=== PATIENT | female | born 1950 | race Caucasian/White ===

== ENCOUNTER → 2018-04-02 11:03 | Outpatient (CLI) | payer MEDICARE, MEDICAID, SELFPAY ==
--- NOTE | 2018-04-02 | NVE_ITS ---
Venous Exam Indications: 729.81 Swelling of limb. 782.3 Edema. IMPRESSIONS 1. There is no evidence of significant Reflux. Difficult to image peroneal veins 2. No evidence of deep or superficial vein thrombosis involving the left lower extremity Left lower extremity venous duplex evaluation. Doppler flow study including spectral analysis, color and pleitez scale imaging. Location: Vascular laboratory. Patient status: Outpatient. CRITICAL FINDINGS - Reported to: Charisma - Ryan back and verified. - 04/02/18 - 1130 - None. Tables: Venous flow and imaging: + + + + Location Overall Flow properties + + + + Left common femoral Patent Normal phasicity; spontaneous; normal augmentation; compressible + + + + Left saphenofemoral junction Patent Compressible + + + + Left profunda femoral Patent Compressible + + + + Left femoral Patent Normal phasicity; spontaneous; normal augmentation; compressible + + + + Left greater saphenous Patent Normal phasicity; spontaneous; normal augmentation; compressible + + + + Left popliteal Patent Normal phasicity; spontaneous; normal augmentation; compressible + + + + Left posterior tibial Patent Compressible + + + + Left peroneal Difficult study Compressible + + + + Left gastrocnemius Patent Compressible + + + + Left soleal Patent Compressible + + + + (Report amended ) Electronically signed by: Anastacia Desouza [id number]
== END ==
PROVIDERS: PCP Internal Medicine Adolescent Medicine; Visit Provider Internal Medicine Adolescent Medicine
DX: M79.604 Pain in right leg (principal); M79.89 Other specified soft tissue disorders
CPT/HCPCS: 93970; 93971

== ENCOUNTER → 2018-07-02 08:19 | Outpatient (CLI) | payer MEDICARE, MEDICAID, SELFPAY ==
--- NOTE | 2018-07-02 08:30 | MM_ITS ---
MM Dig screening mamm BI w/CAD CAD Screening INDICATION: Screening for breast cancer ORDERING PHYSICIAN: Larissa Grier PATIENT AGE: 67 years COMPARISON: None TECHNIQUE: Standard CC and MLO images were obtained. R2 CAD reviewed. FINDINGS: There are multiple bilateral nodular densities once again noted. Study was performed as a screening mammogram and not a diagnostic exam. There is a 10 mm nodule in the outer aspect of the right breast. The right MLO is limited due to patient's immobility. 10 mm nodule outer aspect of the right breast at the 8:00 region appear slightly larger. 12 mm nodular density slightly lateral similar to 12/06/2015. 5 mm nodular density lateral to the nipple Multiple nodules of the left breast benign-appearing calcifications. Not significant change. IMPRESSION: Incomplete evaluation of the right breast. Just by compression views of the multiple breast nodules as marked on the exam. Ultrasound right breast didn't demonstrate a suspicious nodule at 8:00 for which biopsy is suggested. Spot views of the right breast could be performed before the biopsy. BI-RADS Category: 0 Need Additional Imaging Evaluation RECOMMENDED FOLLOW-UP: IMM - IMMEDIATE FOLLOW-UP RECOMMENDED Please see ultrasound report of same day. (A letter has been sent to the patient regarding results of the study.)
--- NOTE | 2018-07-02 08:30 | XR_ITS ---
XR DEXA axial skeleton HISTORY: ITS.REASON: OSTEOPAROSIS ORDERING PHYSICIAN: Larissa Grier PATIENT AGE: 67 years COMPARISON: 12/06/2015 FINDINGS: The BMD measured at the Right femoral neck is 0.718 g/cm squared with a T score of -2.3. This is considered Osteopenic according to the World Health Organization criteria. Fracture risk is Moderate. Treatment is advised. The L1 L4 density of the kidneys were -0.7. The lumbar density has increased by 13%. The hip density has increased by 6%. IMPRESSION: Osteopenia with moderate fracture risk. Treatment is advised Recommend follow-up exam June 2020.
--- NOTE | 2018-07-02 08:32 | US_ITS ---
US breast LT complete INDICATION: Follow-up nodules ORDERING PHYSICIAN: Larissa Grier PATIENT AGE: 67 years COMPARISON: 04/10/2017 TECHNIQUE: Ultrasound with left axilla FINDINGS: 4 mm hypoechoic nodule at 12:00 unchanged 4 mm hypoechoic nodule at 2:00 unchanged 2 mm hypoechoic nodule at 3:00 unchanged Oval 8 x 2 mm hypoechoic nodule at 8:00 appears to represent a cyst previously having a more round appearance 4 mm hypoechoic nodule at 10:00 No suspicious nodules evident IMPRESSION: Multiple hypoechoic nodules consistent with breast cysts BI-RADS Category: 2 Benign Finding(s) RECOMMENDED FOLLOW-UP: 1YR - 1 YEAR FOLLOW-UP (A letter has been sent to the patient regarding results of the study.)
--- NOTE | 2018-07-02 08:32 | US_ITS ---
US breast RT complete INDICATION: Follow-up right breast ORDERING PHYSICIAN: Larissa Grier PATIENT AGE: 67 years COMPARISON: 04/10/2017 TECHNIQUE: Ultrasound right breast with axillae FINDINGS: 2 mm hypoechoic nodule 12:00 unchanged 2 mm hypoechoic nodule 1:00 unchanged 6 mm hypoechoic nodule 3:00, 7 mm macrolobulated hypoechoic nodule at 3:00 unchanged 10 x 7 mm hypoechoic nodule at 8:00 near the nipple. This does appear to contain some internal echoes have a lobular contour. Not related to previously. Ultrasound-guided biopsy suggested. 3 and 4 mm cyst at 9:00 7 mm cyst behind the nipple IMPRESSION: Multiple cysts with a suspicious 10 x 7 mm nodule at o'clock. Biopsy suggested BI-RADS Category: 4 Suspicious Abnormality-Biopsy Considered RECOMMENDED FOLLOW-UP: BIO - BIOPSY RECOMMENDED (A letter has been sent to the patient regarding results of the study.)
== END ==
PROVIDERS: PCP Internal Medicine Adolescent Medicine; Visit Provider Nurse Practitioner Family
DX: Z12.31 Encounter for screening mammogram for malignant neoplasm of breast (principal); Z78.0 Asymptomatic menopausal state; Z13.820 Encounter for screening for osteoporosis; N60.11 Diffuse cystic mastopathy of right breast; N60.12 Diffuse cystic mastopathy of left breast
CPT/HCPCS: 76641; 77067; 77080

== ENCOUNTER → 2018-08-12 09:39 | Outpatient (CLI) | payer MEDICARE, MEDICAID, SELFPAY ==
--- NOTE | 2018-08-12 10:06 | US_ITS ---
US mammotome bx RT, US breast RT complete Right mammogram post biopsy INDICATION: Abnormal ultrasound showing a hypoechoic nodule at 8:00 in the right breast. ORDERING PHYSICIAN: Thuan Tejada MD PATIENT AGE: 68 years COMPARISON: 07/02/2018 Prebiopsy ultrasound: Biopsy planning was performed with prebiopsy ultrasound once again demonstrating a hypoechoic nodule at 8:00 region of the right breast with lobular contour measuring approximately 1.4 cm. There is some hypervascularity. Appropriate site was marked for biopsy. TECHNIQUE: Following obtaining informed consent under aseptic conditions and local anesthesia with 1% buffered lidocaine and deeper anesthesia with lidocaine epinephrine, under modeling was performed. Initially attempted to aspirate the nodule however, this was unsuccessful. Following that, an 9 gauge mammotomy needle was inserted with appropriate positioning and multiple mammotomy cores were obtained. The nodule was noted to decrease in size by greater than 50%. A clip was then placed through the pre-existing needle. Clip placement was confirmed with ultrasound. The patient tolerated the procedure well without evidence of immediate complication. 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 Complete excision is suggested by the pathologist. POSTBIOPSY MAMMOGRAM: The clip is in satisfactory position. Previously noted nodular density in the lateral aspect of the right breast is much less apparent. 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 No immediate complications. Recommend excisional biopsy
== END ==
PROVIDERS: PCP Internal Medicine Adolescent Medicine; Visit Provider Internal Medicine Adolescent Medicine
DX: N63.13 Unspecified lump in the right breast, lower outer quadrant
CPT/HCPCS: 19083; 76641; 77065; 88305; C2618

== ENCOUNTER → 2018-11-17 12:58 | Outpatient (CLI) | payer MEDICARE, MEDICAID, SELFPAY ==
--- NOTE | 2018-11-17 13:05 | NVE_ITS ---
Venous Exam Indications: 729.81 Swelling of limb. 729.5 Pain in limb. IMPRESSIONS No evidence of deep or superficial vein thrombosis involving the left lower extremity History: Left lower extremity pain. Swelling of the left lower extremity. Risk factors: Obese. Recent surgery: Breast cancer surgery as well as colon resection 09/2018. Eliquis prescribed in ER 11/13/18. Left lower extremity venous duplex evaluation. Doppler flow study including spectral analysis, color and pleitez scale imaging. Location: Vascular laboratory. Patient status: Outpatient. Tables: Venous flow and imaging: + +-------+ + Location Overall Flow properties + +-------+ + Left common femoral Patent Normal phasicity; spontaneous; normal augmentation; compressible + +-------+ + Left saphenofemoral junction Patent Compressible + +-------+ + Left profunda femoral Patent Compressible + +-------+ + Left femoral Patent Normal phasicity; spontaneous; normal augmentation; compressible + +-------+ + Left greater saphenous Patent Normal phasicity; spontaneous; normal augmentation; compressible + +-------+ + Left popliteal Patent Normal phasicity; spontaneous; normal augmentation; compressible + +-------+ + Left posterior tibial Patent Compressible + +-------+ + Left peroneal Patent Compressible + +-------+ + Left gastrocnemius Patent Compressible + +-------+ + Left soleal Patent Compressible + +-------+ + (Report amended ) Electronically signed by: Maico Mendosa [id number]
== END ==
PROVIDERS: PCP Internal Medicine Adolescent Medicine; Visit Provider Internal Medicine Adolescent Medicine
DX: M79.605 Pain in left leg (principal)
CPT/HCPCS: 93971

== ENCOUNTER → 2020-10-30 09:28 | Outpatient (CLI) | payer MEDICARE, MEDICAID, SELFPAY ==
[2020-10-30 11:06] LABS: Coronavirus 19 IgG Antibody Negative (Negative); Coronavirus 19 IgM Antibody Negative (Negative)
== END ==
PROVIDERS: Visit Provider Ophthalmology
DX: Z01.812 Encounter for preprocedural laboratory examination (principal)
CPT/HCPCS: 36415; 86328

== ENCOUNTER 2020-10-31 07:35 | Day surgery (SDC) | payer MEDICARE, MEDICAID, SELFPAY ==
[2020-10-31 08:40] VITALS: BP 144/87; PULSE 80; RESP 18; TEMP 36.3; O2SAT 100
[2020-10-31 09:45] VITALS: BP 144/82; PULSE 66; RESP 18; O2SAT 98
[2020-10-31 09:50] VITALS: BP 148/72; PULSE 69; RESP 16; O2SAT 100
[2020-10-31 09:55] VITALS: BP 133/67; PULSE 69; RESP 16; O2SAT 100
[2020-10-31 10:00] VITALS: BP 132/68; PULSE 72; RESP 16; O2SAT 100
[2020-10-31 10:14] VITALS: BP 130/87; PULSE 68; RESP 18; TEMP 36.7; O2SAT 97
== END 2020-10-31 10:15 | disposition home or self-care (01) ==
LOC: OR 07:37
PROVIDERS: PCP Internal Medicine Adolescent Medicine; Visit Provider Ophthalmology
DX: H25.813 Combined forms of age-related cataract, bilateral (principal); H52.03 Hypermetropia, bilateral; M19.90 Unspecified osteoarthritis, unspecified site; Z85.3 Personal history of malignant neoplasm of breast; Z80.9 Family history of malignant neoplasm, unspecified; Z88.2 Allergy status to sulfonamides; Z87.19 Personal history of other diseases of the digestive system; Z79.899 Other long term (current) drug therapy
CPT/HCPCS: 66984; V2632

== ENCOUNTER → 2020-11-07 17:28 | Outpatient (CLI) | payer MEDICARE, MEDICAID, SELFPAY ==
--- NOTE | 2020-11-07 | XR_ITS ---
PROCEDURE: XR ANKLE WT BEARING LT MIN 3V CLINICAL INDICATION: FALL Posttraumatic pain COMPARISON: CR ANKL3 ANKLE-LT-3 VIEWS from 04/02/2014 FINDINGS: There is a faint transverse lucency along the distal aspect the lateral malleolus as seen on the AP view. This may only represent a prominent area of bony trabeculation. Cannot exclude the possibility of a nondisplaced fracture. Follow-up study in 7-10 days may provide further evaluation. Soft tissue swelling is present laterally. IMPRESSION: Possible nondisplaced fracture of the distal fibula. Suggest follow-up in 7-10 days for confirmation. Dictated by: Maico Mendosa MD 11/08/2020 13:03 Maico Mendosa MD in [place] 11/08/2020 13:03
--- NOTE | 2020-11-07 | XR_ITS ---
PROCEDURE: XR TIBIA FIBULA LT 2V CLINICAL INDICATION: FALL Posttraumatic pain COMPARISON: No exams were available for comparison FINDINGS: No fracture or dislocation. No lytic or blastic change. There is normal mineralization. The joint spaces are well-preserved. No significant degenerative/arthritic changes. No erosive changes evident. Other findings:None. IMPRESSION: No acute findings. Dictated by: Maico Mendosa MD 11/08/2020 13:01 Maico Mendosa MD in [facility] 11/08/2020 13:01
== END ==
PROVIDERS: PCP Internal Medicine Adolescent Medicine; Visit Provider Internal Medicine Adolescent Medicine
DX: M79.605 Pain in left leg (principal); M25.572 Pain in left ankle and joints of left foot; W19.XXXA Unspecified fall, initial encounter
CPT/HCPCS: 73590; 73610

== ENCOUNTER → 2020-11-13 10:12 | Outpatient (CLI) | payer MEDICARE, MEDICAID, SELFPAY ==
[2020-11-13 11:38] LABS: Coronavirus 19 IgG Antibody Negative (Negative); Coronavirus 19 IgM Antibody Negative (Negative)
== END ==
PROVIDERS: Visit Provider Ophthalmology
DX: Z01.818 Encounter for other preprocedural examination (principal); Z20.822 Contact with and (suspected) exposure to COVID-19; H25.12 Age-related nuclear cataract, left eye
CPT/HCPCS: 36415; 86328

== ENCOUNTER 2020-11-14 07:39 | Day surgery (SDC) | payer MEDICARE, MEDICAID, SELFPAY ==
[2020-11-07 11:18] VITALS: BMI 30.2
[2020-11-14 08:09] VITALS: BP 137/79; PULSE 67; RESP 18; TEMP 36.3; O2SAT 97
[2020-11-14 09:56] VITALS: BP 132/70; PULSE 60; RESP 18; O2SAT 97
[2020-11-14 10:01] VITALS: BP 133/66; PULSE 62; RESP 18; O2SAT 98
[2020-11-14 10:06] VITALS: BP 130/67; PULSE 63; RESP 18; O2SAT 98
[2020-11-14 10:11] VITALS: BP 128/70; PULSE 62; RESP 20; O2SAT 97
[2020-11-14 10:16] VITALS: BP 142/78; PULSE 66; RESP 16; TEMP 36.3; O2SAT 98
== END 2020-11-14 10:26 | disposition home or self-care (01) ==
LOC: OR 07:41
PROVIDERS: PCP Internal Medicine Adolescent Medicine; Visit Provider Ophthalmology
DX: H25.813 Combined forms of age-related cataract, bilateral (principal); H52.03 Hypermetropia, bilateral; M19.90 Unspecified osteoarthritis, unspecified site; Z85.3 Personal history of malignant neoplasm of breast; Z88.2 Allergy status to sulfonamides; Z79.899 Other long term (current) drug therapy
CPT/HCPCS: 66984; V2632

== ENCOUNTER → 2020-12-18 10:19 | Outpatient (CLI) | payer MEDICARE, MEDICAID, SELFPAY ==
--- NOTE | 2020-12-18 10:25 | XR_ITS ---
PROCEDURE: XR ANKLE WT BEARING LT MIN 3V CLINICAL INDICATION: ankle pain COMPARISON: CR ANKL3 ANKLE-LT-3 VIEWS from 04/02/2014 CR XR ANKLE WT BEARING LT MIN 3V from 11/07/2020 FINDINGS: Bones: No fracture or dislocation. No lytic or blastic change. There is normal mineralization. Joints: The joint spaces are well-preserved. No significant degenerative/arthritic changes. No erosive changes evident. Other findings:None. IMPRESSION: No acute findings. Dictated by: Maico Mendosa MD 12/18/2020 11:54 Maico Mendosa MD in [facility] 12/18/2020 11:54
--- NOTE | 2020-12-18 10:59 | XR_ITS ---
PROCEDURE: XR FOOT WT BEARING LT 3V CLINICAL INDICATION: pain COMPARISON: CR FTR3 FOOT-RT-3 VIEWS from 04/02/2014 CR FTL3 FOOT-LT-3 VIEWS from 04/02/2014 FINDINGS: No fracture or dislocation. No lytic or blastic change. There is normal mineralization. The joint spaces are well-preserved. No significant degenerative/arthritic changes. No erosive changes evident. Other findings:Hammertoe 2nd digit IMPRESSION: No acute findings. Dictated by: Maico Mendosa MD 12/18/2020 11:55 Maico Mendosa MD in [facility] 12/18/2020 11:55
== END ==
PROVIDERS: PCP Internal Medicine Adolescent Medicine; Visit Provider Podiatrist
DX: T14.8XXA Other injury of unspecified body region, initial encounter (principal); M79.672 Pain in left foot; M25.572 Pain in left ankle and joints of left foot
CPT/HCPCS: 73610; 73630

== ENCOUNTER → 2021-01-19 17:28 | Outpatient (CLI) | payer MEDICARE, MEDICAID, SELFPAY ==
[2021-01-19 17:33] LABS: Microscopic, Urine URINE MICROSCOPIC (MICROSCOPIC)
[2021-01-19 17:39] LABS: Appearance,Urine CLEAR (Clear); Bilirubin,Urine Negative (Negative); Blood, Urine Negative (Negative); Color,Urine YELLOW (Yellow); Glucose,Urine (UA) Negative (Negative); Ketones,Urine Negative (Negative); Leukocyte Esterase,Urine 1+ (Negative); Nitrate,Urine Negative (Negative); Protein,Urine Negative (Negative); Urobilinogen,Urine 0.2 EU/dl (0.2)
[2021-01-19 17:52] LABS: Amorphous Sediment,Urine Trace /lpf; Squamous Epithelial Cell,Urine Occasional #/hpf (0-5)
== END ==
PROVIDERS: Visit Provider Internal Medicine Adolescent Medicine
DX: R30.0 Dysuria (principal)
CPT/HCPCS: 81001; 87086; 87088; 87186

== ENCOUNTER → 2021-01-31 11:14 | Outpatient (CLI) | payer MEDICARE, MEDICAID, SELFPAY ==
--- NOTE | 2021-01-31 11:19 | CA_ITS ---
APPROVED REPORT Left Lower Extremity Venous Study for DVT. Price Lister: Ct Torres RVT Indications Lower Extremity Pain: Left Lower Extremity Edema: Left Risk Factors Obesity Medications Aspirin Vein Imaging CFV (L): compressive, spontaneous, phasic, augmentation FEM (L): compressive, spontaneous, phasic, augmentation POP (L): compressive, spontaneous, phasic, augmentation PTV (L): Compressible GSV (L): Compressible Peroneals (L):Compressible GAS (L): Compressible Findings Study suggests no evidence of DVT of the left lower extremity. Study suggests no evidence of SVT of the left lower extremity. Conclusion Study suggests no evidence of DVT of the left lower extremity. Study suggests no evidence of SVT of the left lower extremity. Critical Notification Date: 01/31/2021 Time: 11:54 Physician Name: Odalys Grier's office Electronically signed by : Maico Mendosa MD 01/31/2021 17:21:15
== END ==
PROVIDERS: PCP Nurse Practitioner Family; Visit Provider Nurse Practitioner Family
DX: M79.605 Pain in left leg (principal); M79.602 Pain in left arm; R60.0 Localized edema; R30.0 Dysuria; E55.9 Vitamin D deficiency, unspecified; M81.0 Age-related osteoporosis without current pathological fracture
CPT/HCPCS: 36415; 80053; 82306; 83970; 84443; 85025; 85651; 87086; 93971

== ENCOUNTER → 2021-01-31 12:18 | Outpatient (CLI) | payer MEDICARE, MEDICAID, SELFPAY ==
[2021-01-31 12:38] LABS: Basophils % 0.5 % (0.1-2.0); Eosinophils # 0.2 K/mm3 (0.0-0.4); Eosinophils % 2.5 % (0.1-12.0); Hemoglobin 14.7 g/dL (12.2-16.2); Lymphocytes # 2.3 K/mm3 (0.7-4.5); Lymphocytes % 24.3 % (10-50); Mean Corpuscular HGB Conc 32.6 g/dL (31.8-35.4); Mean Corpuscular Hemoglobin 27.8 pg (27.0-31.2); Mean Corpuscular Volume 85.4 fl (81-99); Mean Platelet Volume 7.4 fl (7.4-10.4); Monocytes # 0.4 K/mm3 (0.1-1.0); Monocytes % 4.8 % (1.7-9.3); Neutrophils # 6.3 K/mm3 (1.8-7.8); Platelet Count 359 K/mm3 (142-424); Red Blood Count 5.27 M/mm3 (4.20-5.40); Red Cell Distribution Width 14.2 % (11.5-17.5); White Blood Count 9.3 K/mm3 (4.8-10.8)
[2021-01-31 13:10] LABS: Erythrocyte Sedimentation Rate 22 mm/hr (0-30)
[2021-01-31 13:31] LABS: Alanine Aminotransferase 30 U/L (12-78); Albumin Level 4.6 g/dl (3.5-5.0); Albumin/Globulin Ratio 1.7 (1.1-1.8); Alkaline Phosphatase 112 U/L (38-126); Anion Gap 13.8 mEq/L (5-15); Aspartate Amino Transferase 28 U/L (14-36); Bilirubin,Total 0.8 mg/dl (0.2-1.3); Blood Urea Nitrogen 9 mg/dl (7-17); Calcium 10.3 mg/dl (8.4-10.2); Carbon Dioxide 27 mmol/L (22.0-30.0); Chloride 104 mmol/L (98-107); Estimated Glomerular Filt Rate 83 ml/min (>60); GFR (African American) 100 ML/MIN (>60); Globulin 2.7 g/dL (1.3-3.2); Glucose 103 mg/dl (74-100); Potassium 4.8 mmoL/L (3.5-5.1); Sodium 140 mmol/L (136-145); Total Protein,Serum 7.3 g/dl (6.3-8.2)
[2021-01-31 13:48] LABS: 25-OH Vitamin D, Total 46.8 ng/mL (30-100)
[2021-01-31 14:02] LABS: Thyroid Stimulating Hormone 1.13 uIU/mL (0.465-4.68)
[2021-02-01 14:41] LABS: Intact Parathyroid Hormone 36.5 pg/mL (7.5-53.5)
== END ==
PROVIDERS: Visit Provider Nurse Practitioner Family
DX: M79.605 Pain in left leg (principal)
CPT/HCPCS: 36415; 80053; 82306; 83970; 84443; 85025; 85651; 87086

== ENCOUNTER 2021-02-19 13:08 | Observation (INO) | payer MEDICARE, MEDICAID, SELFPAY ==
[2021-02-19] VITALS (12 sets, daily range): BP systolic 125–168; BP diastolic 63–99; PULSE 62–81; RESP 12–19; TEMP 36.8–37.1; O2SAT 86–99; BMI 30.2; BMI 29.5
--- NOTE | 2021-02-19 13:11 | XR_ITS ---
PROCEDURE: XR HIP RT 2-3V W/PELVIS CLINICAL INDICATION: pain COMPARISON: CR BONE3 BONE DENSITOMETRY(HIP:LT SPINE from 12/06/2015 FINDINGS: No acute fracture or dislocation is evident. There is prominent bony hypertrophy along the right lateral acetabular region. There are degenerative changes in the lower lumbar spine with lumbar scoliosis convex left and pelvic tilt. Left side of the pelvis is tilted inferiorly. IMPRESSION: Prominent bony hypertrophy in the right super acetabular region. Pelvic tilt with lumbar scoliosis Dictated by: Maico Mendosa MD 02/19/2021 14:02 Miaco Mendosa MD in [facility] 02/19/2021 14:02
--- NOTE | 2021-02-19 13:21 | XR_ITS ---
PROCEDURE: XR CHEST PORTABLE CLINICAL HISTORY: hypoxia COMPARISON: No exams were available for comparison FINDINGS: The cardiomediastinal silhouette and pulmonary vascularity are within normal limits. The lungs are clear without infiltrates, suspicious nodules, or pleural effusions. Right hemidiaphragm is slightly elevated. No acute bony findings. IMPRESSION: No acute findings. Dictated by: Maico Mendosa MD 02/19/2021 14:00 Maico Mendosa MD in [facility] 02/19/2021 14:00
--- NOTE | 2021-02-19 13:21 | HMH.EDGENADL ---
ED Disposition Clinical Impression: Acute respiratory failure with hypoxia, Acute right hip pain Disposition: Admitted as Observation Condition on Discharge: Good Time of Disposition: 14:37 - Critical Care Critical Care Time: No Attestation: On , the high probability of a clinically significant, sudden or life threatening deterioration of the following system(s) required my full and direct attention, intervention and personal management. The time I documented below is in addition to time spent performing reported procedures but includes the following listed in this critical care notation. Medical Decision Making - Medical Records Medical records reviewed: Yes: I reviewed the patient's medical records. - Santiago Inquiry Pt receiving controlled substance: No Vital Signs: 02/19/21 13:09 02/19/21 13:48 02/19/21 14:00 Temperature 98.3 F Temperature Source Oral Pulse Rate 68 71 Pulse Rate [Left Radial] 81 Respiratory Rate 18 Blood Pressure 135/99 H 160/76 H Blood Pressure [Right Arm] 138/82 Blood Pressure Mean 110 104 Blood Pressure Mean [Right Arm] 100 Blood Pressure Source [Right Arm] Automatic Cuff Blood Pressure Position [Right Arm] Sitting 02 Sat by Pulse Oximetry 92 L 93 L 93 L Oxygen Delivery Method Room Air 02/19/21 14:30 02/19/21 15:30 02/19/21 16:00 Temperature Temperature Source Pulse Rate 71 65 80 Pulse Rate [Left Radial] Respiratory Rate Blood Pressure 141/72 H 136/63 147/74 H Blood Pressure [Right Arm] Blood Pressure Mean Blood Pressure Mean [Right Arm] Blood Pressure Source [Right Arm] Blood Pressure Position [Right Arm] 02 Sat by Pulse Oximetry 94 L 97 88 L Oxygen Delivery Method 02/19/21 16:30 02/19/21 17:01 Temperature Temperature Source Pulse Rate 62 73 Pulse Rate [Left Radial] Respiratory Rate Blood Pressure 151/72 H 168/87 H Blood Pressure [Right Arm] Blood Pressure Mean Blood Pressure Mean [Right Arm] Blood Pressure Source [Right Arm] Blood Pressure Position [Right Arm] 02 Sat by Pulse Oximetry 96 99 Oxygen Delivery Method - Lab Data Lab results reviewed: Yes: I reviewed the patient's lab results. Lab Results 02/19/21 13:57: WBC 8.6, RBC 4.86, Hgb 13.6, Hct 40.6, MCV 83.6, MCH 28.1, MCHC 33.6, RDW 14.2, Plt Count 329, MPV 7.9, Neut % (Auto) 70.2, Lymph % (Auto) 21.1, [place] % (Auto) 5.5, Eos % (Auto) 2.7, Baso % (Auto) 0.5, Neut # (Auto) 6.0, Lymph # (Auto) 1.8, [place] # (Auto) 0.5, Eos # (Auto) 0.2, Baso # (Auto) 0.0 02/19/21 13:57: Sodium 139, Potassium 4.3, Chloride 104, Carbon Dioxide 27, Anion Gap 12.3, BUN 10, Creatinine 0.70, Estimated Creat Clear 61, Estimated GFR 83, Est GFR ( Amer) 100, Glucose 132 H, Calcium 9.0, Troponin I < 0.01, NT-Pro-B Natriuret Pep 85.5 02/19/21 14:30: SARS-CoV-2 (PCR) Not detected, Influenza A Untype (PCR) Not detected, Influenza Type B (PCR) Not detected Result diagrams: 02/19/21 13:57 02/19/21 13:57 Orders (Tests/Meds): ED MEDICATIONS Discontinued Medications Generic Name Dose Route Start Last Admin Trade Name Freq PRN Reason Stop Dose Admin Iopamidol 70 ml 02/19/21 16:08 02/19/21 16:08 Iopamidol-370 (76%);100ml Bottle IV 02/19/21 16:09 70 ml ONCE ONE Administration Sodium Chloride 50 ml 02/19/21 16:08 02/19/21 16:08 0.9 % Sodium Chloride 50 Ml Vial IV 02/19/21 16:09 50 ml ONCE ONE Administration Sodium Chloride 10 ml 02/19/21 16:08 02/19/21 16:08 Sodium Chloride 0.9% 10ml Syr (Rad Only) IV 02/19/21 16:09 10 ml ONCE ONE Administration ORDERS Category Date Time Status CT angio chest PE protocol Stat Cat Scan 02/19/21 14:35 Taken - Radiology Data #1 Image(s): Chest Image Reviewed: Yes I have reviewed radiologist's interpretation Preliminary Findings: Normal/NAD #2 Image(s): Hip Image Reviewed: Yes I have reviewed radiologist's interpretation Preliminary Findings: Normal/NAD - EC
--- NOTE | 2021-02-19 13:32 | PC.NURSE ---
Pt with rad.
--- NOTE | 2021-02-19 13:54 | ECG_ITS ---
APPROVED REPORT Exam: Resting ECG HR:64 bpm ECG Measurements Heart Rate 64 AXES SC 152 P 49 QRSd 74 QRS 29 QT 422 T 68 QTc 435 Conclusion Normal sinus rhythm Normal ECG Electronically signed by : Thuan Tejada, 02/19/2021 17:31:13
[2021-02-19 14:09] LABS: Basophils % 0.5 % (0.1-2.0); Eosinophils # 0.2 K/mm3 (0.0-0.4); Eosinophils % 2.7 % (0.1-12.0); Hematocrit 40.6 % (37.0-47.0); Hemoglobin 13.6 g/dL (12.2-16.2); Lymphocytes # 1.8 K/mm3 (0.7-4.5); Lymphocytes % 21.1 % (10-50); Mean Corpuscular HGB Conc 33.6 g/dL (31.8-35.4); Mean Corpuscular Hemoglobin 28.1 pg (27.0-31.2); Mean Corpuscular Volume 83.6 fl (81-99); Mean Platelet Volume 7.9 fl (7.4-10.4); Monocytes # 0.5 K/mm3 (0.1-1.0); Monocytes % 5.5 % (1.7-9.3); Neutrophils % 70.2 % (37.0-80.0); Platelet Count 329 K/mm3 (142-424); Red Blood Count 4.86 M/mm3 (4.20-5.40); Red Cell Distribution Width 14.2 % (11.5-17.5); White Blood Count 8.6 K/mm3 (4.8-10.8)
[2021-02-19 14:21] LABS: Chloride 104 mmol/L (98-107); Potassium 4.3 mmoL/L (3.5-5.1)
[2021-02-19 14:22] LABS: Sodium 139 mmol/L (136-145)
[2021-02-19 14:24] LABS: Anion Gap 12.3 mEq/L (5-15); Blood Urea Nitrogen 10 mg/dl (7-17); Carbon Dioxide 27 mmol/L (22.0-30.0); Creatinine Clearance Estimated 61 mL/min (50-200); Estimated Glomerular Filt Rate 83 ml/min (>60); GFR (African American) 100 ML/MIN (>60); Glucose 132 mg/dl (74-100)
[2021-02-19 14:32] LABS: NT Pro Brain Natriuretic Pep. 85.5 pg/mL (0-125)
--- NOTE | 2021-02-19 14:35 | CT_ITS ---
PROCEDURE: CT ANGIO CHEST PE PROTOCOL CLINCIAL INDICATION: Acute hypoxia Shortness of air COMPARISON: CR XR CHEST PORTABLE from 02/19/2021 TECHNIQUE: IV Contrast: 70ML Isovue 370 Axial images obtained with sagittal and coronal reformats. All CT scans at the facility use one or more dose reduction, viz: automated exposure control, ma/kV adjustment per patient size (including targeted exams where dose is matched to indication, i.e. head), or iterative reconstruction technique. FINDINGS: HEART AND MEDIASTINAL STRUCTURES: No evidence of pulmonary embolus, aortic aneurysm, or aortic dissection. No mediastinal or hilar mass or adenopathy. LUNGS AND PLEURAL SPACES: The most inferior aspect of the posterior costophrenic sulci are not included on either side. Calcified granuloma is present in the right lower lobe posteriorly with minimal atelectatic changes noted. No lobar consolidation or collapse. BONY STRUCTURES: No acute bony abnormalities apparent. UPPER ABDOMEN: Unremarkable. ADDITIONAL FINDINGS: IMPRESSION: No acute finding Dictated by: Maico Mendosa MD 02/19/2021 16:01 Maico Mendosa MD in [facility] 02/19/2021 16:01
[2021-02-19 14:36] LABS: Coronavirus 19, PCR Not Detected (NotDetected); Influenza A, PCR Not Detected (NotDetected); Influenza B, PCR Not Detected (NotDetected)
[2021-02-19 14:50] LABS: Troponin I < 0.01 ng/ml (0.00-0.034)
--- NOTE | 2021-02-19 14:52 | PC.NURSE ---
Pt back to rad.
--- NOTE | 2021-02-19 15:53 | PC.NURSE ---
pt depends changed new sheets under pt at this time. Pt tolerated well. Pt daughter at BS
--- NOTE | 2021-02-19 17:39 | PC.NURSE ---
Pt attends changed.
--- NOTE | 2021-02-19 18:27 | PC.NURSE ---
Report called to [facility] C[facility]IN
--- NOTE | 2021-02-19 18:58 | PC.NURSE ---
pt arrived to floor via stretcher from ed at 1956
--- NOTE | 2021-02-19 21:47 | PC.NURSE ---
Addendum entered by Mone Manuel RN 02/19/21 21:49: Patient is alert & oriented. Original Note: Attempted to contact the daughter for verification of code status. Patient was unable to decide. Daughter is her POA, was unable to reach daughter at this time.
--- NOTE | 2021-02-19 21:58 | PC.NURSE ---
Patient's daughter Jazz Luna called back at this time to discuss code status of patient. Patient request that only comfort measures be given. DNR form has been verbally obtain and verified with myself and Jevon Burroughs.
[2021-02-20] VITALS: BP 114/57; PULSE 76; RESP 14; TEMP 36.8; O2SAT 93
[2021-02-20 03:50] VITALS: BP 133/54; PULSE 65; RESP 14; TEMP 36.3; O2SAT 97
[2021-02-20 04:40] VITALS: BMI 29.6
--- NOTE | 2021-02-20 05:59 | PC.NURSE ---
Patient is A&O x4. Patient was admitted and brought to the floor at shift change from the ED and admitted for acute respiratory failure. Upon arrival patient was not in any respiratory distress but had complaints of pain to her right leg. Patient's lung sounds are diminished but other robins clear. Patient does have trouble forming words and making decisions, her daughter is her POA and she was contacted regarding her code status earlier in the shift. Patient has had some pain throughout the night and was medicated per OCT. Patient has rested well. Will continue to monitor. Call light is within reach, bed in lowest position.
[2021-02-20 07:01] LABS: Basophils % 0.4 % (0.1-2.0); Eosinophils # 0.4 K/mm3 (0.0-0.4); Eosinophils % 4.8 % (0.1-12.0); Hematocrit 40.3 % (37.0-47.0); Hemoglobin 13.2 g/dL (12.2-16.2); Lymphocytes # 2.7 K/mm3 (0.7-4.5); Lymphocytes % 31.3 % (10-50); Mean Corpuscular HGB Conc 32.8 g/dL (31.8-35.4); Mean Corpuscular Hemoglobin 27.9 pg (27.0-31.2); Mean Corpuscular Volume 84.9 fl (81-99); Mean Platelet Volume 8.3 fl (7.4-10.4); Monocytes # 0.6 K/mm3 (0.1-1.0); Monocytes % 6.8 % (1.7-9.3); Neutrophils # 4.9 K/mm3 (1.8-7.8); Neutrophils % 56.7 % (37.0-80.0); Platelet Count 310 K/mm3 (142-424); Red Blood Count 4.75 M/mm3 (4.20-5.40); Red Cell Distribution Width 14.3 % (11.5-17.5); White Blood Count 8.7 K/mm3 (4.8-10.8)
[2021-02-20 07:05] LABS: Chloride 106 mmol/L (98-107); Potassium 4.4 mmoL/L (3.5-5.1); Sodium 141 mmol/L (136-145)
[2021-02-20 07:08] LABS: Anion Gap 12.4 mEq/L (5-15); Blood Urea Nitrogen 12 mg/dl (7-17); Carbon Dioxide 27 mmol/L (22.0-30.0); Creatinine Clearance Estimated 60 mL/min (50-200); Estimated Glomerular Filt Rate 83 ml/min (>60); GFR (African American) 100 ML/MIN (>60); Glucose 99 mg/dl (74-100)
--- NOTE | 2021-02-20 07:28 | HMH.PHAVTE ---
[facility] VTE Monitoring - Patient Demographics Admission date: 02/19/21 Report Date: 02/20/21 Time: 07:28 Allergies/Adverse Reactions: Patient Allergies sulfamethoxazole Allergy (Unknown, Verified 12/18/20 11:35) Unknown allergy reaction Height: 1.55 m Weight: 71.214 kg Patient Problems: Current Active Problems Acute respiratory failure with hypoxia (Acute) Acute right hip pain (Acute) - VTE Risk Labs: VTE Related Lab Results Hgb 13.2 g/dL (12.2-16.2) 02/20/21 06:14 Hct 40.3 % (37.0-47.0) 02/20/21 06:14 Plt Count 310 K/mm3 (142-424) 02/20/21 06:14 BUN 12 mg/dl (7-17) 02/20/21 06:00 Creatinine 0.70 mg/dl (0.52-1.04) 02/20/21 06:00 Estimated Creat Clear 60 mL/min (50-200) 02/20/21 06:00 Was VTE Risk Assessment Performed: Yes VTE Score: 3 VTE Risk Level: Low Risk - Prophylaxis VTE Prophylaxis Ordered?: Yes Types of VTE Prophylaxis: IPCS Thigh High, Pharmacological Location of Applied Device: Bilateral Lower Extremeties Pharmacologic Type: Enoxaparin
[2021-02-20 07:47] VITALS: BP 123/61; PULSE 74; RESP 18; TEMP 36.5; O2SAT 96
--- NOTE | 2021-02-20 09:30 | PC.NURSE ---
O2 turned OFF. Pt is now on RA with O2 sat 93-94%.
--- NOTE | 2021-02-20 09:41 | SW/DCPLANNER ---
CALLED THE DAUGHTER WHOM IS THE POA TO DISCUSS DISCHARGE PLANNING... DR DUNNE IS PLANNING TO SEND HER HOME TODAY AND WANTED TO KNOW IF SHE NEEDED ANYTHING AT HOME... HAD THE NURSE TO DO A RESTING PULSE OX ON PATIENT TO SEE IF THERE IS A NEED FOR OXYGEN AND AT THIS TIME IT DOESN'T APPEAR SHE IS GOING TO QUALIFY...DAUGHTER IS NOT INTERESTED HOME HEALTH SERVICES AT THIS TIME, SHE STATED HER BROTHER WILL BE HERE TO TAKE HER HOME AFTER LUNCH...
--- NOTE | 2021-02-20 10:17 | HMH.HPDC ---
General - General Admission date:: 02/19/21 Discharge date: 02/20/21 *Admission Date: 02/19/21 *Chief complaint: Right hip pain *History of present illness: Ms. Hood is a 70yo F who presented to the ER yesterday secondary to nontraumatic right hip pain. Pain is difficult to assess initially but was quite significant with rolling and moving patient. Imaging obtained in the ER showing concern for significant arthritis and acetabular calcification. While in the ER she had hypoxia with an O2 saturation of 87% on room air. Decision was made to admit for further observation overnight and treatment of her pain and further assessment of her oxygen requirements. [facility] History I have reviewed the patient's past medical history: Yes Medical History: Reports:: Cancer (Breast Cancer), Gastroesophageal Reflux Disease(GERD), Hyperlipidemia, Osteoporosis Denies:: Diabetes Mellitus Type 1, Diabetes Mellitus Type 2, Internal Pacemaker, Lung Disease, MRSA, Seizures *Have you ever received a pneumonia vaccine?: Yes *Have you received a flu vaccine this season?: No Other Medical History: Reports: Cataracts, Chemotherapy, Osteoporosis. Denies: Blood Transfusion Reaction Laterality Cases: Right: Carpal Tunnel Release, Lumpectomy, Bilateral: Cataract Other Surgeries: Yes: Cholecystectomy, Colonoscopy, Dilation and Curettage, EGD, Skin Cancer Excision, Tubal Ligation. No: Pacemaker Amputation: No Fractures: No - *Social History Smoking Status: Never smoker Alcohol Intake: never *Occupational Status:: retired Housing: house Household Members: none *Travel in the last 8 weeks: None Family Hx:: Cancer Review of Systems - Review of Systems Review of systems:: pertinent systems reviewed and negative unless documented below (14 point review of systems performed, pertinent positives and negatives as per HPI) Exam Vital signs and Labs for Last 24 Hours: Temp Pulse Resp BP Pulse Ox 97.7 F 74 18 123/61 96 02/20/21 07:47 02/20/21 07:47 02/20/21 07:47 02/20/21 07:47 02/20/21 07:47 Laboratory Results - last 24 hr 02/19/21 13:57: WBC 8.6, RBC 4.86, Hgb 13.6, Hct 40.6, MCV 83.6, MCH 28.1, MCHC 33.6, RDW 14.2, Plt Count 329, MPV 7.9, Neut % (Auto) 70.2, Lymph % (Auto) 21.1, [place] % (Auto) 5.5, Eos % (Auto) 2.7, Baso % (Auto) 0.5, Neut # (Auto) 6.0, Lymph # (Auto) 1.8, [place] # (Auto) 0.5, Eos # (Auto) 0.2, Baso # (Auto) 0.0 02/19/21 13:57: Sodium 139, Potassium 4.3, Chloride 104, Carbon Dioxide 27, Anion Gap 12.3, BUN 10, Creatinine 0.70, Estimated Creat Clear 61, Estimated GFR 83, Est GFR ( Amer) 100, Glucose 132 H, Calcium 9.0, Troponin I < 0.01, NT-Pro-B Natriuret Pep 85.5 02/19/21 14:30: SARS-CoV-2 (PCR) Not detected, Influenza A Untype (PCR) Not detected, Influenza Type B (PCR) Not detected 02/20/21 06:00: Sodium 141, Potassium 4.4, Chloride 106, Carbon Dioxide 27, Anion Gap 12.4, BUN 12, Creatinine 0.70, Estimated Creat Clear 60, Estimated GFR 83, Est GFR ( Amer) 100, Glucose 99 D, Calcium 9.0 02/20/21 06:14: WBC 8.7, RBC 4.75, Hgb 13.2, Hct 40.3, MCV 84.9, MCH 27.9, MCHC 32.8, RDW 14.3, Plt Count 310, MPV 8.3, Neut % (Auto) 56.7, Lymph % (Auto) 31.3, [place] % (Auto) 6.8, Eos % (Auto) 4.8, Baso % (Auto) 0.4, Neut # (Auto) 4.9, Lymph # (Auto) 2.7, [place] # (Auto) 0.6, Eos # (Auto) 0.4, Baso # (Auto) 0.0 I & O for Last 24 hours: Intake & Output 02/17/21 02/18/21 02/19/21 02/20/21 23:59 23:59 23:59 23:59 Intake Total 480 / 480 Balance 480 / 480 Weight 70.987 kg 71.214 kg - Constitutional no acute distress, chronically ill appearing Comments: overweight - *Routine HEENT Exam Head: Present: normocephalic Eye: Present: EOMI, PERRL ENT: Present: mucous membranes moist - *Routine Neck Exam Present: supple. Absent: lymphadenopathy - *Routine Respiratory Exam Present: CTA bilaterally - *Routine Cardiovascular Exam Present: RRR - *Routine Abdominal Exam Present: soft, normoactive bowel sounds. Abse
== END 2021-02-20 14:43 | disposition home or self-care (01) ==
LOC: ER 14:37 → 2ND 17:37
PROVIDERS: Admitting Provider Family Medicine; Emergency Provider Family Medicine; PCP Internal Medicine Adolescent Medicine; Visit Provider Internal Medicine Adolescent Medicine
DX: M25.551 Pain in right hip (principal); R60.0 Localized edema; K21.9 Gastro-esophageal reflux disease without esophagitis; Z79.899 Other long term (current) drug therapy; J96.01 Acute respiratory failure with hypoxia; R06.9 Unspecified abnormalities of breathing; Z20.822 Contact with and (suspected) exposure to COVID-19
CPT/HCPCS: 36415; 71045; 71275; 73502; 80048; 83880; 84484; 85025; 93005; 99283; G0378; Q9967; U0003

== ENCOUNTER → 2021-07-26 17:46 | Outpatient (CLI) | payer MEDICARE, MEDICAID, SELFPAY | PROVIDERS: Visit Provider Nurse Practitioner Family | DX: R35.0 Frequency of micturition (principal); B96.29 Other Escherichia coli [E. coli] as the cause of diseases classified elsewhere | CPT/HCPCS: 87086; 87088; 87186 ==

== ENCOUNTER 2021-09-26 12:09 | Inpatient (IN) | payer MEDICARE, MEDICAID, SELFPAY ==
[2021-09-26] VITALS (12 sets, daily range): BP systolic 98–136; BP diastolic 51–74; PULSE 100–120; RESP 16–20; TEMP 37–38.3; O2SAT 91–97; BMI 25.0; BMI 25.1; BMI 32.3
--- NOTE | 2021-09-26 12:10 | CT_ITS ---
FINAL REPORT CLINICAL HISTORY: stroke protocol FINDINGS: Axial images of the head were obtained without contrast. Coronal reformatted images were also obtained.This study was performed with techniques to keep radiation doses as low as reasonably achievable (ALARA). Individualized dose reduction techniques using automated exposure control or adjustment of mA and/or kV according to the patient''s size were employed. There is age-appropriate atrophy. There are postoperative changes from left-sided craniotomy. There is a sizable area of encephalomalacia in the left hemisphere. There is a partially calcified mass along the superior aspect of the right tentorium measuring 20 mm. There is a second partially calcified left frontal extra-axial mass measuring 14 mm. Both may represent meningiomas. There are moderate chronic ischemic changes. There is mild edema adjacent to the right sided mass. There is no acute intracranial hemorrhage. IMPRESSION: Two partially calcified masses as detailed above, may represent meningiomas. Recommend MR brain with and without contrast. Reviewed, Interpreted and Dictated by Ed Izaguirre III, MD Transcribed by Shelly Cavanaugh Authenticated by Ed Izaguirre III, MD on 09/26/2021 12:37:53 PM [facility]
--- NOTE | 2021-09-26 12:10 | PC.NURSE ---
rad notified rad of CT head stroke protocol
--- NOTE | 2021-09-26 12:13 | PC.NURSE ---
pt to CT
--- NOTE | 2021-09-26 12:37 | XR_ITS ---
FINAL REPORT CLINICAL HISTORY: AMS- fever. COMPARISON: February 19, 2021 FINDINGS: The heart size is normal. The mediastinum is normal. There is no focal infiltrate or edema. There are no pleural effusions. There is no pneumothorax. There is no osseous abnormality. IMPRESSION: No acute cardiopulmonary process Reviewed, Interpreted and Dictated by Ed Izaguirre III, MD Transcribed by Chito Santoyo Authenticated by Ed Izaguirre III, MD on 09/26/2021 01:58:35 PM [facility]
--- NOTE | 2021-09-26 12:42 | HMH.EDGENADL ---
ED Disposition Clinical Impression: Ureteral calculus, Elevated liver enzymes, Pyelonephritis Sepsis Qualifiers: Sepsis type: sepsis due to unspecified organism Sepsis acute organ dysfunction status: without acute organ dysfunction Qualified Code(s): A41.9 - Sepsis, unspecified organism Disposition: Admitted As Inpatient Condition on Discharge: [facility] - Critical Care Critical Care Time: No Attestation: On 09/26/21, the high probability of a clinically significant, sudden or life threatening deterioration of the following system(s) required my full and direct attention, intervention and personal management. The time I documented below is in addition to time spent performing reported procedures but includes the following listed in this critical care notation. Medical Decision Making - Medical Records Medical records reviewed: Yes: I reviewed the patient's medical records. MR Comment: Reviewed records via [facility]. No brain imaging since 2016. Reviewed most recent urine culture 07/26/2021 from this facility which showed E. coli, sensitive as reviewed. - Santiago Inquiry Pt receiving controlled substance: Yes Santiago was queried for this patient: No Risks and benefits of using a controlled substance: were not discussed with pt by me Vital Signs: 09/26/21 12:10 09/26/21 13:00 09/26/21 13:11 Temperature 99.0 F 98.6 F Temperature Source Oral Rectal Pulse Rate 113 H Pulse Rate [Left Radial] 120 H Respiratory Rate 18 Blood Pressure 98/56 L Blood Pressure [Left Arm] 114/68 Blood Pressure Mean [Left Arm] 83 Blood Pressure Source [Left Arm] Automatic Cuff Blood Pressure Position [Left Arm] Sitting 02 Sat by Pulse Oximetry 93 L 94 L Oxygen Delivery Method Room Air 09/26/21 13:30 09/26/21 13:58 Temperature Temperature Source Pulse Rate 101 H 108 H Pulse Rate [Left Radial] Respiratory Rate Blood Pressure 109/55 L 103/58 L Blood Pressure [Left Arm] Blood Pressure Mean [Left Arm] Blood Pressure Source [Left Arm] Blood Pressure Position [Left Arm] 02 Sat by Pulse Oximetry 95 96 Oxygen Delivery Method - Lab Data Lab Results 09/26/21 12:31: WBC 30.6 H*, RBC 4.58, Hgb 13.6, Hct 42.4, MCV 92.5, MCH 29.6, MCHC 32.0, RDW 14.3, Plt Count 147, MPV 8.9, Neut % (Auto) 93.3 H, Lymph % (Auto) 4.3 L, [place] % (Auto) 1.7, Eos % (Auto) 0.2, Baso % (Auto) 0.4, Neut # (Auto) 28.6 H, Lymph # (Auto) 1.3, [place] # (Auto) 0.5, Eos # (Auto) 0.1, Baso # (Auto) 0.1, Total Counted 100, Neutrophils % (Manual) 85 H, Band Neutrophils % 3.0, Lymphocytes % (Manual) 8 L, Monocytes % (Manual) 4, Platelet Estimate Slight decrease, RBC Morphology Normal 09/26/21 12:31: Sodium 139, Potassium 4.5, Chloride 107, Carbon Dioxide 24, Anion Gap 12.5, BUN 42 H, Creatinine 1.40 H, Estimated Creat Clear 43, Estimated GFR 37 L, Est GFR ( Amer) 45 L, Glucose 110 H, Calcium 10.1, Total Bilirubin 0.8, Direct Bilirubin 0.5 H, Conjugated Bilirubin 0.0, Indirect Bilirubin 0.3, Unconjugated Bilirubin 0.3, AST 148 H, ALT 277 H, Alkaline Phosphatase 149 H, Total Protein 6.7, Albumin 3.9 09/26/21 12:31: Lactate 2.3 H 09/26/21 12:31: PT 13.0 H, INR 1.16 H 09/26/21 12:31: ESR 52 H 09/26/21 12:31: Troponin I < 0.01, C-Reactive Protein 257.7 H, Procalcitonin 22.4 H 09/26/21 13:01: SARS-CoV-2 (PCR) Not detected, Influenza A Untype (PCR) Not detected, Influenza Type B (PCR) Not detected 09/26/21 13:08: Urine Color Yellow, Urine Appearance Cloudy, Urine pH 5.5, Ur Specific [place] 1.025, Urine Protein 1+, Urine Glucose (UA) Negative, Urine Ketones Trace, Urine Blood 2+, Urine Nitrate Positive, Urine Bilirubin 1+ A, Urine Urobilinogen 0.2, Ur Leukocyte Esterase 2+ A, Urine RBC 50-100, Urine WBC Tntc, Ur Squamous Epith Cells None, Urine Bacteria 3+ Result diagrams: 09/26/21 12:31 09/26/21 12:31 Orders (Tests/Meds): ED MEDICATIONS Generic Name Dose Route Start Last Admin Trade Name Freq PRN Reason Stop Dose Adm
[2021-09-26 12:46] LABS: Chloride 107 mmol/L (98-107); Potassium 4.5 mmoL/L (3.5-5.1); Sodium 139 mmol/L (136-145)
[2021-09-26 12:47] LABS: Basophils # 0.1 K/mm3 (0-0.2); Basophils % 0.4 % (0.1-2.0); Eosinophils # 0.1 K/mm3 (0.0-0.4); Eosinophils % 0.2 % (0.1-12.0); Hematocrit 42.4 % (37.0-47.0); Hemoglobin 13.6 g/dL (12.2-16.2); Lymphocytes # 1.3 K/mm3 (0.7-4.5); Lymphocytes % 4.3 % (10-50); Mean Corpuscular Hemoglobin 29.6 pg (27.0-31.2); Mean Corpuscular Volume 92.5 fl (81-99); Mean Platelet Volume 8.9 fl (7.4-10.4); Monocytes # 0.5 K/mm3 (0.1-1.0); Monocytes % 1.7 % (1.7-9.3); Neutrophils # 28.6 K/mm3 (1.8-7.8); Neutrophils % 93.3 % (37.0-80.0); Platelet Count 147 K/mm3 (142-424); Red Blood Count 4.58 M/mm3 (4.20-5.40); Red Cell Distribution Width 14.3 % (11.5-17.5); White Blood Count 30.6 K/mm3 (4.8-10.8)
[2021-09-26 12:48] LABS: MANUAL DIFFERENTIAL MANUAL DIFFERENTIAL (MANUAL DIFF)
[2021-09-26 12:49] LABS: Alanine Aminotransferase 277 U/L (12-78); Albumin Level 3.9 g/dl (3.5-5.0); Alkaline Phosphatase 149 U/L (38-126); Anion Gap 12.5 mEq/L (5-15); Aspartate Amino Transferase 148 U/L (14-36); Bilirubin,Direct 0.5 mg/dl (0.0-0.4); Bilirubin,Indirect 0.3 mg/dL (0.0-0.9); Bilirubin,Total 0.8 mg/dl (0.2-1.3); Bilirubin,Unconjugated 0.3 mg/dL (0.0-1.1); Blood Urea Nitrogen 42 mg/dl (7-17); Calcium 10.1 mg/dl (8.4-10.2); Carbon Dioxide 24 mmol/L (22.0-30.0); Creatinine Clearance Estimated 43 mL/min (50-200); Estimated Glomerular Filt Rate 37 ml/min (>60); GFR (African American) 45 ML/MIN (>60); Glucose 110 mg/dl (74-100); Total Protein,Serum 6.7 g/dl (6.3-8.2)
--- NOTE | 2021-09-26 12:51 | PC.NURSE ---
JAYESH BUTLER at
--- NOTE | 2021-09-26 12:54 | CA_ITS ---
FINAL REPORT TECHNIQUE: Color Doppler, duplex Doppler and compression sonography of the left lower extremity deep venous systems was performed. CLINICAL HISTORY: left leg swelling and pain, Previous Hx-DVT FINDINGS: There is no evidence of deep venous thrombosis from the level of the groin to the calf. The veins are patent and compressible. IMPRESSION: No evidence of deep venous thrombosis left lower extremity. Reviewed, Interpreted and Dictated by Ed Izaguirre III, MD Transcribed by Shelly Cavanaugh Authenticated by Ed Izaguirre III, MD on 09/26/2021 02:49:[address] [facility]
[2021-09-26 12:59] LABS: INR 1.16 (0.9-1.1)
[2021-09-26 13:00] LABS: Lactic Acid 2.3 mmol/L (0.7-2.1)
[2021-09-26 13:04] LABS: Coronavirus 19, PCR Not Detected (NotDetected); Influenza A, PCR Not Detected (NotDetected); Influenza B, PCR Not Detected (NotDetected)
--- NOTE | 2021-09-26 13:10 | PC.NURSE ---
cv lab staff at for doppler
--- NOTE | 2021-09-26 13:11 | CT_ITS ---
FINAL REPORT CLINICAL HISTORY: abdo tenderness, leukocytosis, elev liver enzymes FINDINGS: Axial CT images of the abdomen and pelvis were obtained without intravenous contrast. Coronal reformatted images were also obtained.This study was performed with techniques to keep radiation doses as low as reasonably achievable (ALARA). Individualized dose reduction techniques using automated exposure control or adjustment of mA and/or kV according to the patient's size were employed. Abdomen: There is mild bibasilar atelectasis or scarring. There is mild right hydronephrosis and hydroureter secondary to a 2 mm right UVJ stone. There has been cholecystectomy. The liver, spleen and pancreas have an unremarkable, unenhanced appearance. A 15 mm left adrenal nodules favors an adenoma. There is a supraumbilical hernia containing a portion of transverse colon and fat. No inflammatory process is identified. Pelvis: Images of the pelvis reveal a left adnexal cystic mass measures 4.7 cm and could be due to a cyst or cystic neoplasm. There are postoperative changes involving the rectum. The appendix is not identified. IMPRESSION: Mild right hydronephrosis and hydroureter secondary to a 2 mm right UVJ stone. 4.7 cm left adnexal cystic mass could represent a cyst versus cystic neoplasm. Supraumbilical hernia containing a portion of transverse colon and fat. Reviewed, Interpreted and Dictated by Ed Izaguirre III, MD Transcribed by Chito Santoyo Authenticated by Ed Izaguirre III, MD on 09/26/2021 02:58:[address] [facility]
[2021-09-26 13:12] LABS: Microscopic, Urine URINE MICROSCOPIC (MICROSCOPIC)
--- NOTE | 2021-09-26 13:12 | PC.NURSE ---
rad notified of ct abd
[2021-09-26 13:14] LABS: C-Reactive Protein 257.7 mg/L (0-4); Lymphocytes % 8 % (10-50); Monocytes % 4 % (2-9); Neutrophils % 85 % (42-76); Platelet Estimate Slight Decrease; RBC Morphology Normal; Total Cells Counted 100
[2021-09-26 13:26] LABS: Appearance,Urine CLOUDY (Clear); Blood, Urine 2+ (Negative); Color,Urine YELLOW (Yellow); Glucose,Urine (UA) Negative (Negative); Ketones,Urine TRACE (Negative); Leukocyte Esterase,Urine 2+ (Negative); Nitrate,Urine POSITIVE (Negative); PH,Urine 5.5 (5.0-8.5); Protein,Urine 1+ (Negative); Specific Gravity, Urine 1.025 (1.005-1.030); Urobilinogen,Urine 0.2 EU/dl (0.2)
[2021-09-26 13:27] LABS: Troponin I < 0.01 ng/ml (0.00-0.034)
[2021-09-26 13:32] LABS: Bilirubin,Urine 1+ (Negative)
[2021-09-26 13:33] LABS: Bacteria,Urine 3+ /lpf; RBC,Urine 50-100 #/hpf (0-3); WBC,Urine TNTC #/hpf (0-3)
--- NOTE | 2021-09-26 13:38 | PC.NURSE ---
pt to CT
[2021-09-26 13:53] LABS: Procalcitonin 22.4 ng/mL (0.0-2.0)
--- NOTE | 2021-09-26 14:29 | ECG_ITS ---
APPROVED REPORT Exam: Resting ECG HR:97 bpm ECG Measurements Heart Rate 97 AXES WA 147 P 68 QRSd 83 QRS 61 QT 239 T 81 QTc 294 Conclusion SINUS RHYTHM NONSPECIFIC ST & T-WAVE ABNORMALITY BORDERLINE ECG UNCONFIRMED REPORT Electronically signed by : Thuan Tejada MD 09/27/2021 19:31:31
[2021-09-26 14:39] LABS: Erythrocyte Sedimentation Rate 52 mm/hr (0-30)
--- NOTE | 2021-09-26 15:00 | PC.NURSE ---
pt depends changed at this time, pt turned over on her L side for comfort, warm blankets on pt for comfort, will continue to monitor
--- NOTE | 2021-09-26 15:12 | PC.NURSE ---
waiting corrosion control technician back from Dr. Tejada's office
--- NOTE | 2021-09-26 15:21 | PC.NURSE ---
JAYESH BUTLER speaking with Dr. Yan
--- NOTE | 2021-09-26 15:23 | PC.NURSE ---
notified household appliance installer of admission
--- NOTE | 2021-09-26 16:01 | PC.NURSE ---
report called to rosana perez rn on second floor at this time, states she will send staff down to transport pt.
--- NOTE | 2021-09-26 16:02 | PC.NURSE ---
report received [facility] colten campbell rn
[2021-09-26 16:35] LABS: Troponin I < 0.01 ng/ml (0.00-0.034)
[2021-09-26 16:41] LABS: Reflex Lactic Add Lactic Reflex
[2021-09-26 17:17] LABS: Lactic Acid Follow Up (RFLX 1) 1.5 mmol/L (0.7-2.1)
--- NOTE | 2021-09-26 17:36 | HMH.HP ---
*Admission Date: 09/26/21 *Chief complaint: Fever/chills/weakness *History of present illness: 71-year-old white female with significant debility status post left side paresthesia and hemiparesis from complex neurosurgical intervention several years ago for meningioma, who has had 2 weeks of increasing fatigue, fevers and feeling poorly, daughter brought her to the emergency department today where she was found to be febrile, afflicted with leukocytosis and evidence of a urinary tract infection with pyelonephritis clinically. CT scan showed obstructing right ureteral stone with very mild hydronephrosis. Admitted for IV antibiotics, IV fluids, pain control and urology consultation. [facility] History I have reviewed the patient's past medical history: Yes Medical History: Reports:: Cancer, Deep Vein Thrombosis, Gastroesophageal Reflux Disease(GERD), Hyperlipidemia, Osteoporosis Denies:: Diabetes Mellitus Type 1, Diabetes Mellitus Type 2, Internal Pacemaker, Lung Disease, MRSA, Seizures *Have you ever received a pneumonia vaccine?: Yes *Have you received a flu vaccine this season?: No Other Medical History: Reports: Cataracts, Chemotherapy, Osteoporosis. Denies: Blood Transfusion Reaction Laterality Cases: Right: Breast Biopsy, Carpal Tunnel Release, Lumpectomy Other Surgeries: Yes: Cholecystectomy, Colonoscopy, Dilation and Curettage, EGD, Skin Cancer Excision, Tubal Ligation, Other. No: Pacemaker Amputation: No Fractures: No - *Social History Smoking Status: Never smoker Alcohol Intake: never *Occupational Status:: retired Housing: apartment Household Members: none *Travel in the last 8 weeks: None Family Hx:: Cancer Review of Systems - Review of Systems Review of systems:: pertinent systems reviewed and negative unless documented below - *Neurologic Reports abnormal speech, Reports weakness, Denies localized weakness, Denies headache(s), Denies numbness Meds Home Medications Medication Instructions Recorded Confirmed Type atorvastatin 80 mg tablet 80 mg PO HS 07/27/18 09/26/21 History baclofen 10 mg tablet 10 mg PO TID 07/27/18 09/26/21 History omeprazole 20 mg capsule,delayed 20 mg PO DAILY 07/27/18 09/26/21 History release Anastrozole 1 mg PO HS 10/31/20 09/26/21 History alendronate 70 mg tablet 70 mg PO WEEKLY tab 11/15/20 09/26/21 History gabapentin 100 mg capsule 100 mg PO TID cap 11/15/20 09/26/21 History Aspirin [Adult Low Dose Aspirin EC] 81 mg PO HS 02/19/21 09/26/21 History Hydrocodone/Acetaminophen 1 tab PO TIDP PRN 02/19/21 09/26/21 History [Hydrocodone-Acetamin 7.5-325] meloxicam 7.5 mg tablet 7.5 mg PO DAILY tab 06/07/21 09/26/21 History Mirabegron [Myrbetriq] 50 mg PO DAILY 09/26/21 09/26/21 History Multivit-Min/Iron/Folic/Lutein 1 each PO DAILY 09/26/21 09/26/21 History [Centrum Silver Women Tablet] Allergies Allergy/AdvReac Type Severity Reaction Status Date / Time sulfamethoxazole Allergy Unknown Unknown Verified 09/06/21 10:06 allergy reaction Exam Vital signs and Labs for Last 24 Hours: Temp Pulse Resp BP Pulse Ox 99.0 F 103 H 16 126/66 93 L 09/26/21 16:24 09/26/21 16:24 09/26/21 16:24 09/26/21 16:24 09/26/21 16:24 Laboratory Results - last 24 hr 09/26/21 12:31: WBC 30.6 H*, RBC 4.58, Hgb 13.6, Hct 42.4, MCV 92.5, MCH 29.6, MCHC 32.0, RDW 14.3, Plt Count 147, MPV 8.9, Neut % (Auto) 93.3 H, Lymph % (Auto) 4.3 L, [place] % (Auto) 1.7, Eos % (Auto) 0.2, Baso % (Auto) 0.4, Neut # (Auto) 28.6 H, Lymph # (Auto) 1.3, [place] # (Auto) 0.5, Eos # (Auto) 0.1, Baso # (Auto) 0.1, Total Counted 100, Neutrophils % (Manual) 85 H, Band Neutrophils % 3.0, Lymphocytes % (Manual) 8 L, Monocytes % (Manual) 4, Platelet Estimate Slight decrease, RBC Morphology Normal 09/26/21 12:31: Sodium 139, Potassium 4.5, Chloride 107, Carbon Dioxide 24, Anion Gap 12.5, BUN 42 H, Creatinine 1.40 H, Estimated Creat Clear 43, Estimated GFR 37 L, Est GFR ( Amer) 45 L, Glucose 110 H, Calcium 10.1,
--- NOTE | 2021-09-26 18:45 | PC.NURSE ---
Home meds locked in drawer, narcotics sent home with pt's daughter
[2021-09-27] VITALS (22 sets, daily range): BP systolic 103–135; BP diastolic 58–77; PULSE 97–108; RESP 15–20; TEMP 36.7–43; O2SAT 90–96; BMI 31.1
--- NOTE | 2021-09-27 03:49 | PC.NURSE ---
Pt has rested intermittently this shift. At the beginning of the shift, she was asleep, and difficult to arouse without gentle shaking. She could only moan and mumble, wasn't able to answer any questions appropriately. She recognized her name. Around 2029 pt had elevated temp, and was medicated per mar with Tylenol. She was moaning, and grimacing, guarding her abdomen. Morphine given per oct, with desired effects achieved. Pt appeared to rest comfortably until around 299, when she woke up crying and moaning. Pt noted to have elevated temp again. She was able to tell this RN that her head hurt and belly and back hurts . She appeared more alert to self and situation. Able to answer simple questions. Pt was medicated per oct with Tylenol, Morphine, and Zofran. Pt also given a lukewarm bath and total bed change. Desired effects achieved, pt currently appears to be resting comfortably, and temperature has decreased. VSS this shift. Pt voiding per attends. Assisting with turning and repositioning as needed. No skin issues noted. Has been NPO since 0000 with the exception of a few bites of applesauce with Tylenol administration. Will continue to monitor for any further changes.
[2021-09-27 07:03] LABS: Chloride 113 mmol/L (98-107)
[2021-09-27 07:04] LABS: Potassium 4.3 mmoL/L (3.5-5.1); Sodium 140 mmol/L (136-145)
[2021-09-27 07:06] LABS: Blood Urea Nitrogen 37 mg/dl (7-17); Creatinine Clearance Estimated 56 mL/min (50-200); Estimated Glomerular Filt Rate 49 ml/min (>60); GFR (African American) 59 ML/MIN (>60)
[2021-09-27 07:07] LABS: Anion Gap 8.3 mEq/L (5-15); Carbon Dioxide 23 mmol/L (22.0-30.0); Glucose 99 mg/dl (74-100)
--- NOTE | 2021-09-27 07:36 | HMH.PHAVTE ---
[facility] Pharmacy VTE Monitoring - Patient Demographics Admission date: 09/27/21 Report Date: 09/27/21 Time: 07:36 Allergies/Adverse Reactions: Patient Allergies sulfamethoxazole Allergy (Unknown, Verified 09/06/21 10:06) Unknown allergy reaction Height: 1.55 m Weight: 74.979 kg Patient Problems: Current Active Problems Sepsis (Acute) Ureteral calculus (Acute) Elevated liver enzymes (Acute) Pyelonephritis (Acute) - VTE Risk Labs: VTE Related Lab Results Hgb 13.6 g/dL (12.2-16.2) 09/26/21 12:31 Hct 42.4 % (37.0-47.0) 09/26/21 12:31 Plt Count 147 K/mm3 (142-424) 09/26/21 12:31 PT 13.0 seconds (10.1-12.5) H 09/26/21 12:31 INR 1.16 (0.9-1.1) H 09/26/21 12:31 BUN 37 mg/dl (7-17) H 09/27/21 05:58 Creatinine 1.10 mg/dl (0.52-1.04) H D 09/27/21 05:58 Estimated Creat Clear 56 mL/min (50-200) 09/27/21 05:58 Was VTE Risk Assessment Performed: No VTE Score: 6 VTE Risk Level: Moderate Risk Clinical Trial Participant: Yes - Prophylaxis VTE Prophylaxis Ordered?: Yes Types of VTE Prophylaxis: TEDS Knee High
[2021-09-27 07:38] LABS: Basophils # 0.2 K/mm3 (0-0.2); Basophils % 0.7 % (0.1-2.0); Eosinophils % 0.1 % (0.1-12.0); Hematocrit 37.2 % (37.0-47.0); Lymphocytes % 7.6 % (10-50); Mean Corpuscular HGB Conc 31.4 g/dL (31.8-35.4); Mean Corpuscular Hemoglobin 29.5 pg (27.0-31.2); Mean Platelet Volume 9.7 fl (7.4-10.4); Monocytes # 0.7 K/mm3 (0.1-1.0); Monocytes % 2.8 % (1.7-9.3); Neutrophils # 23.5 K/mm3 (1.8-7.8); Neutrophils % 88.8 % (37.0-80.0); Platelet Count 141 K/mm3 (142-424); Red Blood Count 3.96 M/mm3 (4.20-5.40); Red Cell Distribution Width 14.4 % (11.5-17.5); White Blood Count 26.5 K/mm3 (4.8-10.8)
--- NOTE | 2021-09-27 07:43 | HMH.PHAINT ---
home medication list verified using list from [email or web address]
[2021-09-27 08:01] LABS: Hemoglobin 11.6 g/dL (12.2-16.2)
[2021-09-27 08:02] LABS: MANUAL DIFFERENTIAL MANUAL DIFFERENTIAL (MANUAL DIFF)
[2021-09-27 09:00] LABS: Lymphocytes % 9 % (10-50); Monocytes % 3 % (2-9); Neutrophils % 85 % (42-76); Platelet Estimate Slight Decrease; Total Cells Counted 100
[2021-09-27 09:01] LABS: Burr Cells 1+
--- NOTE | 2021-09-27 09:01 | HMH.CONS ---
*Admission Date: 09/27/21 *Reason for consult:: Urosepsis secondary to right distal ureteral stone *History of present illness: Patient is a 71-year-old white female admitted last evening with urosepsis secondary to a 2 mm distal right ureteral stone. History was obtained from the notes as patient is a poor historian. There is a 2-week history of increasing fatigue, fevers and feeling poorly. She was febrile in the emergency room. White count is elevated at 30.6, lactate is 2.3, C-reactive protein is 257 and procalcitonin is 22. She meets sepsis protocol and is admitted for IV fluids. Her creatinine is 1.1 today which is decreased from 1.[address] scan was reviewed. Her white count is slightly lower today at 26.5. [facility] History Medical History: Reports:: Cancer, Deep Vein Thrombosis, Gastroesophageal Reflux Disease(GERD), Hyperlipidemia, Osteoporosis Denies:: Diabetes Mellitus Type 1, Diabetes Mellitus Type 2, Internal Pacemaker, Lung Disease, MRSA, Seizures *Have you ever received a pneumonia vaccine?: Yes *Have you received a flu vaccine this season?: No Other Medical History: Reports: Cataracts, Chemotherapy, Osteoporosis. Denies: Blood Transfusion Reaction Laterality Cases: Right: Breast Biopsy, Carpal Tunnel Release, Lumpectomy Other Surgeries: Yes: Cholecystectomy, Colonoscopy, Dilation and Curettage, EGD, Skin Cancer Excision, Tubal Ligation, Other. No: Pacemaker Amputation: No Fractures: No - *Social History Smoking Status: Never smoker Alcohol Intake: never *Occupational Status:: retired Housing: apartment Household Members: none *Travel in the last 8 weeks: None Family Hx:: Cancer Review of Systems - Review of Systems Review of systems:: unable to obtain - *Neurologic Reports abnormal speech, Reports weakness, Denies localized weakness, Denies headache(s), Denies numbness Meds Home Medications Medication Instructions Recorded Confirmed Type atorvastatin 80 mg tablet 80 mg PO HS 07/27/18 09/26/21 History baclofen 10 mg tablet 10 mg PO TID 07/27/18 09/26/21 History omeprazole 20 mg capsule,delayed 20 mg PO DAILY 07/27/18 09/26/21 History release Anastrozole 1 mg PO HS 10/31/20 09/26/21 History alendronate 70 mg tablet 70 mg PO WEEKLY tab 11/15/20 09/26/21 History gabapentin 100 mg capsule 100 mg PO TID cap 11/15/20 09/26/21 History Aspirin [Adult Low Dose Aspirin EC] 81 mg PO HS 02/19/21 09/26/21 History Hydrocodone/Acetaminophen 1 tab PO TIDP PRN 02/19/21 09/26/21 History [Hydrocodone-Acetamin 7.5-325] meloxicam 7.5 mg tablet 7.5 mg PO DAILY tab 06/07/21 09/26/21 History Multivit-Min/Iron/Folic/Lutein 1 each PO DAILY 09/26/21 09/26/21 History [Centrum Silver Women Tablet] Oxybutynin Chloride [Oxybutynin 10 mg PO HS 09/27/21 09/27/21 History Chloride ER] Allergies Allergy/AdvReac Type Severity Reaction Status Date / Time sulfamethoxazole Allergy Unknown Unknown Verified 09/06/21 10:06 allergy reaction Exam Vital signs and Labs for Last 24 Hours: Temp Pulse Resp BP Pulse Ox 99.5 F 108 H 18 103/58 L 90 L 09/27/21 03:38 09/27/21 03:38 09/27/21 03:38 09/27/21 03:38 09/27/21 03:38 Laboratory Results - last 24 hr 09/26/21 12:31: WBC 30.6 H*, RBC 4.58, Hgb 13.6, Hct 42.4, MCV 92.5, MCH 29.6, MCHC 32.0, RDW 14.3, Plt Count 147, MPV 8.9, Neut % (Auto) 93.3 H, Lymph % (Auto) 4.3 L, [place] % (Auto) 1.7, Eos % (Auto) 0.2, Baso % (Auto) 0.4, Neut # (Auto) 28.6 H, Lymph # (Auto) 1.3, [place] # (Auto) 0.5, Eos # (Auto) 0.1, Baso # (Auto) 0.1, Total Counted 100, Neutrophils % (Manual) 85 H, Band Neutrophils % 3.0, Lymphocytes % (Manual) 8 L, Monocytes % (Manual) 4, Platelet Estimate Slight decrease, RBC Morphology Normal 09/26/21 12:31: Sodium 139, Potassium 4.5, Chloride 107, Carbon Dioxide 24, Anion Gap 12.5, BUN 42 H, Creatinine 1.40 H, Estimated Creat Clear 43, Estimated GFR 37 L, Est GFR ( Amer) 45 L, Glucose 110 H, Calcium 10.1, Total Bilirubin 0.8, Direct Bilir
--- NOTE | 2021-09-27 09:42 | HMH.ANESCL ---
[facility] Anesthesia Checklist - Patient Identification Patient Identification: Arm Band, Verbal (Name & ) - Structural Data Admitted From: Inpatient Planned Operative Procedure/s: Cystoscopy with Right Stent Placement Consent for Planned Operative Procedure(s) Verified: Yes Verified Documents: Surgical Consent, History and Physical - NPO Status Verified Time NPO: 00:00 - Additional verifications Anesthesia Reactions: No Hx Blood Transfusions: No Blood Transfusion Reaction: No - Airway Assessment C-Spine Mobility Assessed: Yes (mp2) TMJ Mobility Assessed: Yes Dentition: Poor Dentition - Neurological Assessment Level of Consciousness: Awake - Anesthesia Plan Anesthesia Risk discussed: Yes Anesthesia Plan: Verified ASA Class: III Anesthesia Type: General - Preoperative Comments Pre-Operative Comments: Difficult to do preoperative assessment. Pt unable to adequately verbalize all medical hx. Attempted to call daughter multiple times with no success. Risks of anesthesia and plan of care discussed to pt. Medical History obtained from chart. [facility] History I have reviewed the patient's past medical history: Yes Medical History: Reports:: Cancer, Deep Vein Thrombosis, Gastroesophageal Reflux Disease(GERD), Hyperlipidemia, Osteoporosis Denies:: Diabetes Mellitus Type 1, Diabetes Mellitus Type 2, Internal Pacemaker, Lung Disease, MRSA, Seizures *Have you ever received a pneumonia vaccine?: Yes *Have you received a flu vaccine this season?: No Other Medical History: Reports: Cataracts, Chemotherapy, Osteoporosis. Denies: Blood Transfusion Reaction Anesthesia experience/problems:: nac Laterality Cases: Right: Breast Biopsy, Carpal Tunnel Release, Lumpectomy Other Surgeries: Yes: Cholecystectomy, Colonoscopy, Dilation and Curettage, EGD, Skin Cancer Excision, Tubal Ligation, Other. No: Pacemaker Amputation: No Fractures: No - *Social History Smoking Status: Never smoker Alcohol Intake: never Substance Use Type: denies use *Occupational Status:: retired Housing: apartment Household Members: none *Travel in the last 8 weeks: None Family Hx:: Cancer
--- NOTE | 2021-09-27 09:51 | XR_ITS ---
FINAL REPORT TECHNIQUE: Fluoroscopy was provided for a surgical procedure. CLINICAL HISTORY: STENT PLACEMENT done in the or fluoro time: 0:16 FINDINGS: 2 images were obtained during the fluoroscopic procedure. Fluoroscopy Time: Not defined IMPRESSION: Fluoroscopy as above Reviewed, Interpreted and Dictated by Ed Izaguirre III, MD Transcribed by ONESIMO Bolden Authenticated by Ed Izaguirre III, MD on 10/01/2021 09:13:05 AM [facility]
--- NOTE | 2021-09-27 09:57 | HMH.ANESI ---
[facility] Anesthesia Record Part I Intake, IV Amount: 600 Estimated blood loss (mL): 0 Urine output (mL): 0 Blood Pressure: 124/64 SaO2: 92 Pulse Rate: 100 Respiratory Rate: 16 Temperature: 98.8 F Patient is:: Drowsy, Stable Stable to PACU at:: 09:55
--- NOTE | 2021-09-27 10:28 | PC.NURSE ---
1023-detailed report called Wale,RN [id number]-pt transported to 2nd floor via hospital bed w/[place] rails up, vss, pt stable
--- NOTE | 2021-09-27 10:56 | P.OP_ITS ---
Date of procedure: 09/27/21 Pre-op Diagnosis:: 2 mm distal right ureteral stone/urosepsis Post-op Diagnosis:: 2 mm distal right ureteral stone/urosepsis Procedure performed:: Cystoscopy with right ureteral stent placement Surgeon:: Sami Yan MD BOBBIN INSPECTOR:: Branden Bates Anesthesia: LMA Estimated blood loss (mL): 0 Clinical Note:: 71-year-old white female admitted to the hospital last evening with urosepsis and 2 mm distal right ureteral stone with mild hydronephrosis. White count is 30,000, creatinine 1.4 on admission. She presents now for right ureteral decompression. Operative findings:: The right trigone was elevated and swollen. Fluoroscopy showed no evidence of calcification in the ureter. Guidewire was passed without difficulty and a 6 x 24 [place] stent was passed over the guidewire without difficulty. Operative note:: Patient taken to the operating room after informed consent was obtained. She was placed on the operating room table and general anesthesia administered. She was on preoperative IV antibiotics. Sequential compression devices placed and she was placed into the dorsal lithotomy position. The 22 [place] cystoscope passed into the urethra and into the bladder without difficulty. The bladder was examined in a systematic fashion. No mucosal abnormalities were noted but the right trigone was elevated consistent with right ureteral obstruction. A guidewire was passed into the right ureteral orifice and passed into the right renal pelvis with minimal difficulty. Some bloody efflux of urine was noted after placement but no evidence of pus. A 6 x 24 [place] stent was then passed over the guidewire and under fluoroscopy the guidewire was removed. There was a good curl proximally and distally. String was removed from the stent. Observation of the stent after placement did not show any evidence of pyelonephrosis or gross hematuria. The scope removed a 16 [place] Yun catheter was placed into the bladder to monitor urine output. Patient tolerated well. Condition: stable Disposition: PACU Specimens:: Urine culture was sent after decompression of the right ureter. Complications:: None
--- NOTE | 2021-09-27 14:37 | P.PN_ITS ---
Internal Medicine - PN: Subj *Date: 09/27/21 *Time: 14:37 Interval history: Patient had urology procedure today. Discussed case with urologist personally, reviewed note, appreciate input and procedure. Patient feels much better, much more alert, talkative and he is currently afebrile. Exam Vital signs and Labs for Last 24 Hours: Temp Pulse Resp BP Pulse Ox 98.6 F 101 H 16 122/65 94 L 09/27/21 14:20 09/27/21 14:20 09/27/21 14:20 09/27/21 14:20 09/27/21 14:20 Laboratory Results - last 24 hr 09/26/21 12:31: ESR 52 H 09/26/21 13:08: Urine Color Yellow, Urine Appearance Cloudy, Urine pH 5.5, Ur Specific [place] 1.025, Urine Protein 1+, Urine Glucose (UA) Negative, Urine Ketones Trace, Urine Blood 2+, Urine Nitrate Positive, Urine Bilirubin 1+ A, Urine Urobilinogen 0.2, Ur Leukocyte Esterase 2+ A, Urine RBC 50-100, Urine WBC Tntc, Ur Squamous Epith Cells None, Urine Bacteria 3+ 09/26/21 15:55: Troponin I < 0.01 09/26/21 16:57: Lactate 1.5 09/27/21 05:58: WBC 26.5 H*, RBC 3.96 L, Hgb 11.6 L D, Hct 37.2, MCV 94.0, MCH 29.5, MCHC 31.4 L, RDW 14.4, Plt Count 141 L, MPV 9.7, Neut % (Auto) 88.8 H, Lymph % (Auto) 7.6 L, [place] % (Auto) 2.8, Eos % (Auto) 0.1, Baso % (Auto) 0.7, Neut # (Auto) 23.5 H, Lymph # (Auto) 2.0, [place] # (Auto) 0.7, Eos # (Auto) 0.0, Baso # (Auto) 0.2, Total Counted 100, Neutrophils % (Manual) 85 H, Band Neutrophils % 3.0, Lymphocytes % (Manual) 9 L, Monocytes % (Manual) 3, Platelet Estimate Slight decrease, [place] Cells 1+ 09/27/21 05:58: Sodium 140, Potassium 4.3, Chloride 113 H, Carbon Dioxide 23, Anion Gap 8.3, BUN 37 H, Creatinine 1.10 H D, Estimated Creat Clear 56, Estimated GFR 49 L, Est GFR ( Amer) 59 D, Glucose 99, Calcium 9.0 I & O for Last 24 hours: Intake & Output 09/25/21 09/26/21 09/27/21 09/28/21 11:59 11:59 11:59 11:59 Intake Total 1793 / 1793 819 / 819 Balance 1793 / 1793 819 / 819 Weight 165 lb 4.8 oz Microbiology Reports for the Last 24 Hours: Microbiology 09/26/21 13:08 Urine,Catheterized Urine Culture - Preliminary Gram Negative Rods 09/26/21 12:31 Blood Blood Culture - Preliminary 09/26/21 12:31 Blood Blood Culture - Preliminary Narrative: Very pleasant, talkative, but word finding difficulties at baseline. Significant left hemiparesis as previously noted. Lungs clear, heart rate regular. Abdomen soft but tender in the flank area. No edema or clubbing. No rash. Good distal extremity perfusion. Assessment and Plan (1) Pyelonephritis Status: Acute Category: Medical Code(s): N12 - Tubulo-interstitial nephritis, not specified as acute or chronic (2) Sepsis Status: Acute Qualifiers: Sepsis type: sepsis due to unspecified organism Sepsis acute organ dysfunction status: without acute organ dysfunction Qualified Code(s): A41.9 - Sepsis, unspecified organism Category: Medical Code(s): A41.9 - Sepsis, unspecified organism (3) Ureteral calculus Status: Acute Category: Medical Code(s): N20.1 - Calculus of ureter - Assessment and plan all Dx Assessment and Plan for all problems:: Improving on antibiotic therapy. Await urine culture and blood culture results. Continue therapy for sepsis, continue to hold p.o. medications -probable restart most of these tomorrow if she seems to be able to be eating.
--- NOTE | 2021-09-27 15:04 | HMH.ANESII ---
[facility] Anesthesia Record Part II Discharge Time: 10:25 Destination: Medical Surgical Department PACU nurse assessment reviewed?: Yes Patient Condition:: Good Anesthesia Complications:: None Swallowing reflex intact?: Yes Cyanosis?: No Blood Pressure: 132/76 Pulse Rate: 103 Temperature: 98.1 F Mental Status: Alert & Oriented Pain level:: 0 Nausea and/or vomitting:: None Intake, IV Amount: 0
--- NOTE | 2021-09-27 18:24 | PC.NURSE ---
Pt is much more alert today. She was able to give name, , and place appropriately when asked. She is s/p right ureteral stent placement. O2 had to be increased temporarily to 4L NC post op but she has since been weaned back to 2L NC. She has a 16 fr andino to bedside draining straw colored urine. She has had 700 mls out thus far. +1/+2 edema to ble and +1 generalized edema. Right arm is flaccid and contracted. Appetite has been good. She was able to feed herself with little assistance. There is an abdominal protrusion noted above umbilicus. She denies any complaints at this time. Daughter has called and has been updated on pt's status and poc.
[2021-09-28] VITALS (7 sets, daily range): BP systolic 128–150; BP diastolic 59–71; PULSE 52–93; RESP 16–20; TEMP 35.8–36.9; O2SAT 92–96; BMI 36.8
--- NOTE | 2021-09-28 | CA_ITS ---
FINAL REPORT TECHNIQUE: Color Doppler, duplex Doppler and compression sonography of the left lower extremity deep venous systems was performed. CLINICAL HISTORY: LLE pain, no known trauma, hyperlipidemia, left sided paresthesia and hemiparesis. Patient unable to move left leg. Limited scan in popliteal area due to limited mobility. FINDINGS: There is no evidence of deep venous thrombosis from the level of the groin to the calf. The veins are patent and compressible. IMPRESSION: No evidence of deep venous thrombosis left lower extremity. Reviewed, Interpreted and Dictated by Ed Izaguirre III, MD Transcribed by Shelly Cavanaugh Authenticated by Ed Izaguirre III, MD on 09/28/2021 10:29:46 AM [facility]
--- NOTE | 2021-09-28 04:37 | PC.NURSE ---
Pt has rested fairly well this shift. Received a bath and bed change at beginning of shift. Has had no c/o pain this shift. VSS. F/c remains in place, draining dede colored urine. Pt has had good urine output this shift. Pt more alert, and able to carry a conversation although responses are delayed. This is pt's baseline (per previous nurse report). No acute distress noted. Will continue to monitor.
[2021-09-28 06:47] LABS: Basophils % 0.1 % (0.1-2.0); Hematocrit 34.3 % (37.0-47.0); Hemoglobin 10.9 g/dL (12.2-16.2); Lymphocytes # 1.4 K/mm3 (0.7-4.5); Lymphocytes % 6.3 % (10-50); Mean Corpuscular HGB Conc 31.7 g/dL (31.8-35.4); Mean Corpuscular Hemoglobin 29.2 pg (27.0-31.2); Mean Corpuscular Volume 91.9 fl (81-99); Mean Platelet Volume 9.2 fl (7.4-10.4); Monocytes # 0.4 K/mm3 (0.1-1.0); Monocytes % 1.9 % (1.7-9.3); Neutrophils # 19.9 K/mm3 (1.8-7.8); Neutrophils % 91.7 % (37.0-80.0); Platelet Count 142 K/mm3 (142-424); Red Blood Count 3.73 M/mm3 (4.20-5.40); Red Cell Distribution Width 14.3 % (11.5-17.5); White Blood Count 21.7 K/mm3 (4.8-10.8)
[2021-09-28 06:49] LABS: Chloride 114 mmol/L (98-107); Sodium 139 mmol/L (136-145)
[2021-09-28 06:50] LABS: MANUAL DIFFERENTIAL MANUAL DIFFERENTIAL (MANUAL DIFF)
[2021-09-28 06:51] LABS: Potassium 4.2 mmoL/L (3.5-5.1)
--- NOTE | 2021-09-28 06:51 | HMH.ACPN2 ---
Internal Medicine - PN: Subj *Date: 09/28/21 *Time: 08:09 Interval history: 71-year-old female with no acute events overnight. Alert and oriented this morning. Clinically defervescing with no fever, heart rate in a normal range now. Tolerated breakfast but does not eat very much per her report. No nausea, vomiting, chest pain, shortness of breath. Belly pain resolved. Complaining of left lower extremity pain this morning. Exam Vital signs and Labs for Last 24 Hours: Temp Pulse Resp BP Pulse Ox 98.4 F 78 16 130/59 L 92 L 09/28/21 04:00 09/28/21 04:00 09/28/21 04:00 09/28/21 04:00 09/28/21 04:00 Laboratory Results - last 24 hr 09/26/21 13:08: Urine Color Yellow, Urine Appearance Cloudy, Urine pH 5.5, Ur Specific [place] 1.025, Urine Protein 1+, Urine Glucose (UA) Negative, Urine Ketones Trace, Urine Blood 2+, Urine Nitrate Positive, Urine Bilirubin 1+ A, Urine Urobilinogen 0.2, Ur Leukocyte Esterase 2+ A, Urine RBC 50-100, Urine WBC Tntc, Ur Squamous Epith Cells None, Urine Bacteria 3+ 09/27/21 05:58: WBC 26.5 H*, RBC 3.96 L, Hgb 11.6 L D, Hct 37.2, MCV 94.0, MCH 29.5, MCHC 31.4 L, RDW 14.4, Plt Count 141 L, MPV 9.7, Neut % (Auto) 88.8 H, Lymph % (Auto) 7.6 L, [place] % (Auto) 2.8, Eos % (Auto) 0.1, Baso % (Auto) 0.7, Neut # (Auto) 23.5 H, Lymph # (Auto) 2.0, [place] # (Auto) 0.7, Eos # (Auto) 0.0, Baso # (Auto) 0.2, Total Counted 100, Neutrophils % (Manual) 85 H, Band Neutrophils % 3.0, Lymphocytes % (Manual) 9 L, Monocytes % (Manual) 3, Platelet Estimate Slight decrease, [place] Cells 1+ 09/27/21 05:58: Sodium 140, Potassium 4.3, Chloride 113 H, Carbon Dioxide 23, Anion Gap 8.3, BUN 37 H, Creatinine 1.10 H D, Estimated Creat Clear 56, Estimated GFR 49 L, Est GFR ( Amer) 59 D, Glucose 99, Calcium 9.0 09/28/21 05:58: WBC 21.7 H*, RBC 3.73 L, Hgb 10.9 L, Hct 34.3 L, MCV 91.9, MCH 29.2, MCHC 31.7 L, RDW 14.3, Plt Count 142, MPV 9.2, Neut % (Auto) 91.7 H, Lymph % (Auto) 6.3 L, [place] % (Auto) 1.9, Eos % (Auto) 0.0 L, Baso % (Auto) 0.1, Neut # (Auto) 19.9 H, Lymph # (Auto) 1.4, [place] # (Auto) 0.4, Eos # (Auto) 0.0, Baso # (Auto) 0.0 I & O for Last 24 hours: Intake & Output 09/25/21 09/26/21 09/27/21 09/28/21 23:59 23:59 23:59 23:59 Intake Total 3450 / 3450 1003 / 1003 Output Total 550 / 550 Balance 3450 / 2900 453 / 453 Weight 77.649 kg 74.979 kg 88.541 kg Microbiology Reports for the Last 24 Hours: Microbiology 09/26/21 13:08 Urine,Catheterized Urine Culture - Preliminary Gram Negative Rods 09/26/21 12:31 Blood Blood Culture - Preliminary 09/26/21 12:31 Blood Blood Culture - Preliminary Narrative: Pleasant and talkative female, no acute distress Lungs clear to auscultation, no wheeze or crackles Heart rate regular, no murmurs or gallops Abdomen soft, no rebound or guarding, bowel sounds active 1+ edema in left lower extremity. Diffusely tender from knee down. No redness or warmth No rash on skin Alert and oriented x3 Assessment and Plan (1) Pyelonephritis Status: Acute Category: Medical Code(s): N12 - Tubulo-interstitial nephritis, not specified as acute or chronic (2) Sepsis Status: Acute Qualifiers: Sepsis type: sepsis due to unspecified organism Sepsis acute organ dysfunction status: without acute organ dysfunction Qualified Code(s): A41.9 - Sepsis, unspecified organism Category: Medical Code(s): A41.9 - Sepsis, unspecified organism (3) Ureteral calculus Status: Acute Category: Medical Code(s): N20.1 - Calculus of ureter - Assessment and plan all Dx Assessment and Plan for all problems:: 71-year-old female who presented with sepsis secondary to pyelonephritis from an obstructing kidney stone. Urology consulted, appreciate their recommendations. Patient clinically effervescing at this time responding to IV antibiotics. Continue ceftriaxone based on previous cultures being positive for E. coli sensitive to ceftr
[2021-09-28 06:52] LABS: Alanine Aminotransferase 111 U/L (12-78); Alkaline Phosphatase 123 U/L (38-126); Anion Gap 7.2 mEq/L (5-15); Aspartate Amino Transferase 34 U/L (14-36); Bilirubin,Total 0.4 mg/dl (0.2-1.3); Blood Urea Nitrogen 17 mg/dl (7-17); Carbon Dioxide 22 mmol/L (22.0-30.0); Creatinine Clearance Estimated 73 mL/min (50-200); Estimated Glomerular Filt Rate 71 ml/min (>60); GFR (African American) 86 ML/MIN (>60)
[2021-09-28 06:54] LABS: Albumin/Globulin Ratio 1.2 (1.1-1.8); Calcium 8.8 mg/dl (8.4-10.2); Globulin 2.6 g/dL (1.3-3.2); Glucose 138 mg/dl (74-100); Total Protein,Serum 5.6 g/dl (6.3-8.2)
[2021-09-28 07:42] LABS: Lymphocytes % 3 % (10-50); Neutrophils % 97 % (42-76); Total Cells Counted 100
[2021-09-28 07:43] LABS: Anisocytosis 1+; Hypochromasia 2+; Platelet Estimate Normal
--- NOTE | 2021-09-28 10:12 | SW/DCPLANNER ---
Addendum entered by Rolanda Jacinto 10/04/21 09:41: I spoke with patients daughter (Jazz) and she will transport this patient to [facility] today at 3PM. Addendum entered by Rolanda Jacinto 10/04/21 08:06: Per Gregoria wright/ [place] this patient will require an additional COVID swab prior to admission at [facility]. The plan is for this patient to discharge today pending no setbacks. Addendum entered by Najma Hanna 10/02/21 12:51: [facility].. SHE WILL DISCHARGE THERE TMRW 10/03 PENDING NO SETBACKS... WILL NOTIFY HER FAMILY AND PATIENT... Addendum entered by Najma Hanna 10/01/21 14:09: [facility] DOES NOT HAVE ANY FEMALE BEDS, I SENT IT TO [place] TO SEE IF SHE HAS ANY OUT OF NETWORK BENEFITS...ALSO SENT IT TO [facility]...GOING TO SEND IT TO [facility] IN [place] IF NO ONE LOCALLY CAN ACCEPT HER.. Addendum entered by Najma Hanna 10/01/21 10:51: SENT REFERRAL TO [facility] TO SEE IF THEY CAN ACCEPT HER FOR SKILLED PLACEMENT.. PATIENT IS [employer] AND WILL REQUIRE AN AUTHORIZATION.. Addendum entered by Najma Hanna 10/01/21 08:01: PATIENT HAS AGREED TO PLACEMENT, I SPOKE WITH HER ABOUT PLACES THAT HAS A CONTRACT WITH HER INSURANCE. SHE IS OK WITH [facility] IF THEY HAVE A BED... PATIENT HAS [employer]..SO I WILL EXPLORE OPTIONS FOR HER, PATIENT MAY BE ABLE TO DISCHARGE TODAY IF A BED HAS BEEN OBTAINED.. Original Note: PATIENT ADMITTED TO [facility] ON 09/26 WITH SEPSIS, PYELONEPHRITIS, FEVER AND URINARY TRACK INFECTION. PATIENT STATED SHE HAS NOT BEEN FEELING WELL FOR A FEW DAYS. SHE WAS BROUGHT TO THE HOSPITAL, SHE RESIDES AT HOME AND THE PLAN IS FOR HER TO RETURN BACK TO HER HOME!ONCE SHE IS MEDICALLY READY, ANY HOME CARE ORDERED WILL BE SET UP FOR HER AT TIME OF DISCHARGE! DISPOSITION SHOULD BE SOON..
[2021-09-28 10:47] LABS: Hep A Ab, IgM Negative (Negative); Hepatitis B Core Antibody IgM Negative (Negative); Hepatitis B Surface Antigen Negative (Negative); Hepatitis C Antibody <0.1 s/co ratio (0.0-0.9)
--- NOTE | 2021-09-28 19:00 | PC.NURSE ---
Pt has been very pleasant and conversant this shift. She does have some difficulty with finding certain words, but per family this is her baseline. pt is assist with turns, bedfast. Pt has r sided weakness/immobility that is her baseline. lung sounds are clear, bowel sounds are active. nad noted. pt is able to feed herself with minimal difficulty.
[2021-09-29 04:00] VITALS: BP 163/85; PULSE 74; RESP 16; TEMP 36.3; O2SAT 97
[2021-09-29 04:59] VITALS: BMI 33.9
--- NOTE | 2021-09-29 05:29 | PC.NURSE ---
No acute changes. Pt a + o x4 but has trouble finding words and is slow to answer. Yun in place draining clear yellow urine to gravity. No calculi noted. Pt has not voiced any complaints to staff. Pt has been turned q2h. Call branch within reach.
[2021-09-29 07:50] VITALS: BP 145/72; PULSE 79; RESP 20; TEMP 37.1; O2SAT 94
[2021-09-29 08:00] VITALS: PULSE 79; O2SAT 94
[2021-09-29 08:52] VITALS: BMI 33.9
--- NOTE | 2021-09-29 08:59 | HMH.ACPN2 ---
Internal Medicine - PN: Subj *Date: 09/29/21 *Time: 08:59 Interval history: Overnight patient has done very well. Has been eating and drinking well. Blood pressure has stabilized and in fact is slightly over normal through the past 24 hours. Patient is alert, pleasant. Talkative, much better in regards to word formation and thought processes than last exams. Exam Vital signs and Labs for Last 24 Hours: Temp Pulse Resp BP Pulse Ox 98.8 F 79 20 145/72 H 94 L 09/29/21 07:50 09/29/21 07:50 09/29/21 07:50 09/29/21 07:50 09/29/21 07:50 Laboratory Results - last 24 hr 09/26/21 12:31: Hepatitis A IgM Ab Negative, Hep Bs Antigen Negative, Hep B Core IgM Ab Negative, Hepatitis C Antibody <0.1 09/26/21 13:08: Urine Color Yellow, Urine Appearance Cloudy, Urine pH 5.5, Ur Specific [place] 1.025, Urine Protein 1+, Urine Glucose (UA) Negative, Urine Ketones Trace, Urine Blood 2+, Urine Nitrate Positive, Urine Bilirubin 1+ A, Urine Urobilinogen 0.2, Ur Leukocyte Esterase 2+ A, Urine RBC 50-100, Urine WBC Tntc, Ur Squamous Epith Cells None, Urine Bacteria 3+ I & O for Last 24 hours: Intake & Output 09/26/21 09/27/21 09/28/21 09/29/21 11:59 11:59 11:59 11:59 Intake Total 1793 / 1793 2780 / 2780 480 / 480 Output Total 1050 / 1050 1950 / 1950 Balance 1793 / 1793 1730 / 1730 -1470 / -1470 Weight 165 lb 4.8 oz 195 lb 3.2 oz 179 lb 12.8 oz Microbiology Reports for the Last 24 Hours: Microbiology 09/26/21 12:31 Blood Blood Culture - Preliminary Escherichia coli 09/26/21 12:31 Blood Blood Culture - Final Escherichia coli 09/27/21 09:42 Urine,Clean Catch Urine Culture - Preliminary NO GROWTH AFTER 24 HOURS 09/26/21 13:08 Urine,Catheterized Urine Culture - Final Escherichia coli Narrative: Arm weakness and hemiparesis as previously noted. Yun catheter draining clear yellow urine. Abdomen soft. Good air movement in her lung [place]. Heart rate regular. Oropharynx clear and moist. No visible rash. Extremities are warm and well-perfused. T exam clear Assessment and Plan (1) Pyelonephritis Status: Acute Category: Medical Code(s): N12 - Tubulo-interstitial nephritis, not specified as acute or chronic (2) Sepsis Status: Acute Qualifiers: Sepsis type: sepsis due to unspecified organism Sepsis acute organ dysfunction status: without acute organ dysfunction Qualified Code(s): A41.9 - Sepsis, unspecified organism Category: Medical Code(s): A41.9 - Sepsis, unspecified organism (3) Ureteral calculus Status: Acute Category: Medical Code(s): N20.1 - Calculus of ureter (4) History of malignant neoplasm of brain Status: Acute Category: Medical Code(s): Z85.841 - Personal history of malignant neoplasm of brain (5) Plantarflexion deformity of right foot Status: Acute Category: Medical Code(s): M21.6X1 - Other acquired deformities of right foot (6) Neuropathy Status: Chronic Category: Medical Code(s): G62.9 - Polyneuropathy, unspecified (7) E. coli bacteremia Status: Acute Category: Medical Code(s): R78.81 - Bacteremia; B96.20 - Unspecified Escherichia coli [E. coli] as the cause of diseases classified elsewhere - Assessment and plan all Dx Assessment and Plan for all problems:: 1. Bacteremia with sepsis-E. coli-sensitive to ceftriaxone-repeat blood cultures today to document clearance. 2. Significant comorbidities as listed above with difficulty walking, self-care issues-patient lives alone. I will have PT and OT see her. I talked with her about the possibility in skilled care for rehab and she is open to this. 3. Restart home medications for her breast cancer follow-up and hyperlipidemia. Watch blood pressure carefully. Patient does not have blood pressure medication on her home list. 4. Remove Yun cathete
[2021-09-29 10:10] LABS: Basophils # 0.1 K/mm3 (0-0.2); Basophils % 1.2 % (0.1-2.0); Eosinophils # 0.4 K/mm3 (0.0-0.4); Eosinophils % 3.3 % (0.1-12.0); Hematocrit 35.8 % (37.0-47.0); Hemoglobin 11.4 g/dL (12.2-16.2); Lymphocytes % 16.9 % (10-50); Mean Corpuscular HGB Conc 31.9 g/dL (31.8-35.4); Mean Corpuscular Hemoglobin 28.6 pg (27.0-31.2); Mean Corpuscular Volume 89.8 fl (81-99); Mean Platelet Volume 10.1 fl (7.4-10.4); Monocytes # 0.8 K/mm3 (0.1-1.0); Monocytes % 6.9 % (1.7-9.3); Neutrophils # 8.3 K/mm3 (1.8-7.8); Neutrophils % 71.7 % (37.0-80.0); Platelet Count 181 K/mm3 (142-424); Red Blood Count 3.99 M/mm3 (4.20-5.40); Red Cell Distribution Width 14.3 % (11.5-17.5); White Blood Count 11.6 K/mm3 (4.8-10.8)
[2021-09-29 10:27] LABS: Anion Gap 10.4 mEq/L (5-15); Blood Urea Nitrogen 16 mg/dl (7-17); Calcium 8.7 mg/dl (8.4-10.2); Carbon Dioxide 22 mmol/L (22.0-30.0); Chloride 111 mmol/L (98-107); Creatinine Clearance Estimated 67 mL/min (50-200); Estimated Glomerular Filt Rate 99 ml/min (>60); GFR (African American) 120 ML/MIN (>60); Glucose 127 mg/dl (74-100); Potassium 4.4 mmoL/L (3.5-5.1); Sodium 139 mmol/L (136-145)
--- NOTE | 2021-09-29 15:05 | PC.NURSE ---
1508-Ector, physical therapist at bedside at this time for evaluation
--- NOTE | 2021-09-29 15:33 | HMH.PTEV ---
Physical Therapy Evaluation Rehab PT IP Evaluation Start: 09/29/21 08:58 Freq: ONCE Status: Active Protocol: Document 09/29/21 15:27 DAIANA (Rec: 09/29/21 15:33 DAIANA [id number]) Subjective/History History History &1 y/o female admitted thru ED w/ c/o from family of increased weakness over last 2 weeks. Noted increased difficulty with and slurred speech. Pt had tumor removal sx of meningioma when she was 13 leaving RUE flaccid and RLE weak. Subjective Subjective Pt rpeorts she lives in appartment alone and understands she may require extended rehab to allow return to PLOF Rehab PT IP Eval Objective Appearance Patient Behavior Appropriate,Cooperative Patient Orientation Place,Name,Birthday,Year Difficulty following instructions none Speech Pattern Appropriate,Delayed,Soft- Spoken Ambulation Patient Able to Ambulate No Balance Ability to Arise Unable Sitting Balance Leans or slides in chair Standing Balance Unsteady Dynamic Sitting Balance Ability Fair Dynamic Standing Balance Ability Poor Transfers Bed Transfer Ability Moderate x 1 (50% assist) Sit to Stand Bed Transfer Ability Moderate x 1 (50% assist) Rehab PT IP prob,goals,plan Problems Date of Evaluation: 09/29/21 PT IP Problems Bed Mobility,Transfers,Gait, Balance,Self care,Safety Rehab Potential Rehab Potential Fair Equipment Needs Assistive Devices Standard Walker,Rolling / Wheeled Walker Plan PT Intervention Plan Bed Mobility,Transfers,Gait, Balance,Self care,Safety, Therapeutic Exercise PT Plan Frequency BID Duration LOS Discharge Goals Bed Transfer Ability Moderate x 1 (50% assist) Sit to Stand Chair Transfer Ability Moderate x 1 (50% assist) Ambulation Assistive Device Large Base Quad Cane, Hemiwalker Ambulation Distance (feet) 3 Discharge Plan PT Discharge Plan Pt will benefit from extended skilled therapy to allow return home at OF. I believe this will take several weeks at a SNF t
[2021-09-29 16:00] VITALS: BP 157/71; PULSE 70; RESP 22; TEMP 37.7; O2SAT 95
[2021-09-29 17:01] VITALS: TEMP 36.8
--- NOTE | 2021-09-29 17:01 | PC.NURSE ---
1701-pt resting well in bed at this time, pt's family was at bedside, pt wearing attends t/o shift and going to bedpan as needed, pt has not needed to void since physical therapy eval but will attempt to get pt up to bsc when she needs to go, no c/o pain or nausea at this time, pt reports c/o tired and weak , vss, ls cta, hrr, pt has epi 2l/nc t/o shift, family reports will bring pt's glasses and walker tomorrow, no acute distress noted at this time, vss, pt stable
[2021-09-29 20:00] VITALS: BP 147/70; PULSE 80; RESP 18; TEMP 37.1; O2SAT 95
[2021-09-30 04:00] VITALS: BP 140/66; PULSE 82; RESP 18; TEMP 37.1; O2SAT 91
[2021-09-30 05:00] VITALS: BMI 32.9
--- NOTE | 2021-09-30 06:27 | PC.NURSE ---
Pt has remained on 2L NC with O2 with sats 91-95%. Pt had no c/o of SOA. Pt c/o of pain in left leg x1 this shift, gave meds per MAR with relief. Pt has slept well this shift.
[2021-09-30 06:49] LABS: Basophils # 0.1 K/mm3 (0-0.2); Basophils % 0.9 % (0.1-2.0); Eosinophils # 0.3 K/mm3 (0.0-0.4); Eosinophils % 2.7 % (0.1-12.0); Hematocrit 35.3 % (37.0-47.0); Hemoglobin 11.6 g/dL (12.2-16.2); Lymphocytes # 2.5 K/mm3 (0.7-4.5); Lymphocytes % 22.3 % (10-50); Mean Corpuscular HGB Conc 32.8 g/dL (31.8-35.4); Mean Corpuscular Hemoglobin 29.1 pg (27.0-31.2); Mean Corpuscular Volume 88.6 fl (81-99); Monocytes # 1.2 K/mm3 (0.1-1.0); Monocytes % 10.6 % (1.7-9.3); Neutrophils # 7.2 K/mm3 (1.8-7.8); Neutrophils % 63.4 % (37.0-80.0); Platelet Count 216 K/mm3 (142-424); Red Blood Count 3.98 M/mm3 (4.20-5.40); Red Cell Distribution Width 14.1 % (11.5-17.5); White Blood Count 11.3 K/mm3 (4.8-10.8)
[2021-09-30 07:08] LABS: Chloride 108 mmol/L (98-107); Potassium 3.9 mmoL/L (3.5-5.1); Sodium 134 mmol/L (136-145)
[2021-09-30 07:11] LABS: Anion Gap 6.9 mEq/L (5-15); Blood Urea Nitrogen 12 mg/dl (7-17); Calcium 8.5 mg/dl (8.4-10.2); Carbon Dioxide 23 mmol/L (22.0-30.0); Creatinine Clearance Estimated 65 mL/min (50-200); Estimated Glomerular Filt Rate 99 ml/min (>60); GFR (African American) 120 ML/MIN (>60); Glucose 88 mg/dl (74-100)
[2021-09-30 08:00] VITALS: BP 113/51; PULSE 85; RESP 16; TEMP 37.4; O2SAT 94
--- NOTE | 2021-09-30 08:43 | HMH.ACPN2 ---
Internal Medicine - PN: Subj *Date: 09/30/21 *Time: 08:43 Interval history: Overall patient did well through the night. Breathing easily on 2 L nasal cannula. No pain, continues to have significant neurologic deficits as baseline. Appreciate PT evaluation. Exam Vital signs and Labs for Last 24 Hours: Temp Pulse Resp BP Pulse Ox 98.8 F 82 18 140/66 91 L 09/30/21 04:00 09/30/21 04:00 09/30/21 04:00 09/30/21 04:00 09/30/21 04:00 Laboratory Results - last 24 hr 09/29/21 10:04: WBC 11.6 H D, RBC 3.99 L, Hgb 11.4 L, Hct 35.8 L, MCV 89.8, MCH 28.6, MCHC 31.9, RDW 14.3, Plt Count 181 D, MPV 10.1, Neut % (Auto) 71.7, Lymph % (Auto) 16.9, Lea % (Auto) 6.9, Eos % (Auto) 3.3, Baso % (Auto) 1.2, Neut # (Auto) 8.3 H, Lymph # (Auto) 2.0, Lea # (Auto) 0.8, Eos # (Auto) 0.4, Baso # (Auto) 0.1 09/29/21 10:04: Sodium 139, Potassium 4.4, Chloride 111 H, Carbon Dioxide 22, Anion Gap 10.4, BUN 16, Creatinine 0.60 D, Estimated Creat Clear 67, Estimated GFR 99, Est GFR ( Amer) 120 D, Glucose 127 H, Calcium 8.7 09/30/21 05:15: WBC 11.3 H, RBC 3.98 L, Hgb 11.6 L, Hct 35.3 L, MCV 88.6, MCH 29.1, MCHC 32.8, RDW 14.1, Plt Count 216, MPV 10.0, Neut % (Auto) 63.4, Lymph % (Auto) 22.3, Lea % (Auto) 10.6 H, Eos % (Auto) 2.7, Baso % (Auto) 0.9, Neut # (Auto) 7.2, Lymph # (Auto) 2.5, Lea # (Auto) 1.2 H, Eos # (Auto) 0.3, Baso # (Auto) 0.1 09/30/21 05:15: Sodium 134 L, Potassium 3.9, Chloride 108 H, Carbon Dioxide 23, Anion Gap 6.9, BUN 12, Creatinine 0.60, Estimated Creat Clear 65, Estimated GFR 99, Est GFR ( Amer) 120, Glucose 88 D, Calcium 8.5 I & O for Last 24 hours: Intake & Output 09/27/21 09/28/21 09/29/21 09/30/21 11:59 11:59 11:59 11:59 Intake Total 1793 / 1793 2780 / 2780 480 / 480 2060 / 2060 Output Total 1050 / 1050 1950 / 1950 1100 / 1100 Balance 1793 / 1793 1730 / 1730 -1470 / -1470 961 / 961 Weight 165 lb 4.8 oz 195 lb 3.2 oz 179 lb 10.828 oz 174 lb 8 oz Microbiology Reports for the Last 24 Hours: Microbiology 09/27/21 09:42 Urine,Clean Catch Urine Culture - Final NO GROWTH AFTER 48 HOURS 09/26/21 12:31 Blood Blood Culture - Preliminary Escherichia coli 09/26/21 12:31 Blood Blood Culture - Final Escherichia coli Narrative: Alert, oriented x3. Speech is almost back to baseline. Continue to have her dense hemiparesis as previously noted with global weakness. Heart rate regular. Abdomen soft, Yun catheter draining clear yellow urine. ENT exam clear Assessment and Plan (1) Pyelonephritis Status: Acute Category: Medical Code(s): N12 - Tubulo-interstitial nephritis, not specified as acute or chronic (2) Sepsis Status: Acute Qualifiers: Sepsis type: sepsis due to unspecified organism Sepsis acute organ dysfunction status: without acute organ dysfunction Qualified Code(s): A41.9 - Sepsis, unspecified organism Category: Medical Code(s): A41.9 - Sepsis, unspecified organism (3) Ureteral calculus Status: Acute Category: Medical Code(s): N20.1 - Calculus of ureter (4) History of malignant neoplasm of brain Status: Acute Category: Medical Code(s): Z85.841 - Personal history of malignant neoplasm of brain (5) Plantarflexion deformity of right foot Status: Acute Category: Medical Code(s): M21.6X1 - Other acquired deformities of right foot (6) Neuropathy Status: Chronic Category: Medical Code(s): G62.9 - Polyneuropathy, unspecified (7) E. coli bacteremia Status: Acute Category: Medical Code(s): R78.81 - Bacteremia; B96.20 - Unspecified Escherichia coli [E. coli] as the cause of diseases classified elsewhere - Assessment and plan all Dx Assessment and Plan for all problems:: Continue current therapy with ceftriaxone. Care management consult for long-term care placement. Patient may wish to stay in a long-term care environment even
[2021-09-30 15:38] VITALS: BP 135/66; PULSE 90; RESP 20; TEMP 36.4; O2SAT 93
[2021-09-30 20:00] VITALS: BP 140/65; PULSE 88; RESP 20; TEMP 37; O2SAT 95
[2021-10-01 04:00] VITALS: BP 140/70; PULSE 68; RESP 18; TEMP 36.7; O2SAT 96
[2021-10-01 05:00] VITALS: BMI 34.8
--- NOTE | 2021-10-01 05:58 | PC.NURSE ---
Pt remains on 2L NC with O2 sats >90%. Pt voiced no c/o of pain thus far in shift. Pt has attends on with purewick in place. Pt's output this shift has been 1,800ML. Call light within reach.
[2021-10-01 08:00] VITALS: BP 123/57; PULSE 86; RESP 16; TEMP 36.8; O2SAT 93
--- NOTE | 2021-10-01 08:32 | HMH.ACPN2 ---
Internal Medicine - PN: Subj *Date: 10/01/21 *Time: 08:32 Interval history: Patient feels good, tolerated Yun catheter removal. Is using the pure wick system. No pains. Did well with physical therapy but continues to require lots of assistance. Exam Vital signs and Labs for Last 24 Hours: Temp Pulse Resp BP Pulse Ox 98.2 F 86 16 123/57 L 93 L 10/01/21 08:00 10/01/21 08:00 10/01/21 08:00 10/01/21 08:00 10/01/21 08:00 I & O for Last 24 hours: Intake & Output 09/28/21 09/29/21 09/30/21 10/01/21 11:59 11:59 11:59 11:59 Intake Total 2780 / 2780 480 / 480 2301 / 2301 360 / 360 Output Total 1050 / 1050 1950 / 1950 1100 / 1100 1800 / 1800 Balance 1730 / 1730 -1470 / -1470 1201 / 1201 -1440 / -1440 Weight 195 lb 3.2 oz 179 lb 10.828 oz 174 lb 8 oz 184 lb 8 oz Narrative: Lungs clear, heart rate regular. Alert, pleasant. Talkative. Previously noted neurologic deficits unchanged. No rash. Abdomen soft and nontender. No edema or clubbing in extremities. Assessment and Plan (1) Pyelonephritis Status: Acute Category: Medical Code(s): N12 - Tubulo-interstitial nephritis, not specified as acute or chronic (2) Sepsis Status: Acute Qualifiers: Sepsis type: sepsis due to unspecified organism Sepsis acute organ dysfunction status: without acute organ dysfunction Qualified Code(s): A41.9 - Sepsis, unspecified organism Category: Medical Code(s): A41.9 - Sepsis, unspecified organism (3) Ureteral calculus Status: Acute Category: Medical Code(s): N20.1 - Calculus of ureter (4) History of malignant neoplasm of brain Status: Acute Category: Medical Code(s): Z85.841 - Personal history of malignant neoplasm of brain (5) Plantarflexion deformity of right foot Status: Acute Category: Medical Code(s): M21.6X1 - Other acquired deformities of right foot (6) Neuropathy Status: Chronic Category: Medical Code(s): G62.9 - Polyneuropathy, unspecified (7) E. coli bacteremia Status: Acute Category: Medical Code(s): R78.81 - Bacteremia; B96.20 - Unspecified Escherichia coli [E. coli] as the cause of diseases classified elsewhere - Assessment and plan all Dx Assessment and Plan for all problems:: Blood cultures on repeat remain negative. Plan to finish up course of ceftriaxone for E. coli bacteremia with severe sepsis. Plan for transition to extended care facility given need for physical therapy and finishing up IV antibiotics. Please note that patient requires urgent consideration of preauthorization given current paucity of hospital beds during the current Covid pandemic.
--- NOTE | 2021-10-01 09:00 | PC.NURSE ---
PT/OT at bs
--- NOTE | 2021-10-01 09:42 | HMH.OTEV ---
OT Inpatient Evaluation Rehab OT IP Evaluation Start: 09/29/21 08:58 Freq: ONCE Status: Complete Protocol: Document 10/01/21 09:19 AMINTACANDIDA (Rec: 10/01/21 09:30 VENITANIKOLE [id number]) Rehab OT IP Assessment Subjective History 71-year-old white female with significant debility status post left side paresthesia and hemiparesis from complex neurosurgical intervention several years ago for meningioma, who has had 2 weeks of increasing fatigue, fevers and feeling poorly, daughter brought her to the emergency department today where she was found to be febrile, afflicted with leukocytosis and evidence of a urinary tract infection with pyelonephritis clinically. CT scan showed obstructing right ureteral stone with very mild hydronephrosis. Admitted for IV antibiotics, IV fluids, pain control and urology consultation. Medical History: Reports:: Cancer, Deep Vein Thrombosis, Gastroesophageal Reflux Disease(GERD), Hyperlipidemia, Osteoporosis 71-year-old white female admitted to the hospital last evening with urosepsis and 2 mm distal right ureteral stone with mild hydronephrosis. White count is 30,000, creatinine 1.4 on admission. She presents now for right ureteral decompression. Subjective I would like to get up. Patient lives alone in 1 story apartment with 1 CATHY. Patient verbalize being independent with ADL and fx'l mobility in the house with usage of howard walker. Dtr checks on patient multiple times throughout the week and provides transportation and groceries as
[2021-10-01 10:50] VITALS: O2SAT 91
--- NOTE | 2021-10-01 12:30 | PC.NURSE ---
Pt sleeping soundly.
--- NOTE | 2021-10-01 14:17 | PC.NURSE ---
Remains asleep at this time.
[2021-10-01 16:00] VITALS: BP 126/59; PULSE 95; RESP 16; TEMP 37.3; O2SAT 90
--- NOTE | 2021-10-01 17:17 | PC.NURSE ---
Bath complete at this time. Pt c/o pain in leg, agrees to wait until after she eats to receive morphine r/t it making her sleepy, too sleepy to eat.
[2021-10-01 20:00] VITALS: BP 133/74; PULSE 93; RESP 18; TEMP 36.6; O2SAT 92
[2021-10-02 04:00] VITALS: BP 115/48; PULSE 90; RESP 18; TEMP 36.6; O2SAT 92
[2021-10-02 05:00] VITALS: BMI 34.8
--- NOTE | 2021-10-02 07:34 | HMH.ACPN2 ---
Internal Medicine - PN: Subj *Date: 10/02/21 *Time: 08:46 Interval history: No acute events overnight. Continues to have leg pain, this is baseline for her. Eating breakfast with her left hand. Has no use of her right side. Denies any chest pain or shortness of breath. No vomiting or diarrhea. Still having some burning with urination. Afebrile and hemodynamically stable. Exam Vital signs and Labs for Last 24 Hours: Temp Pulse Resp BP Pulse Ox 97.9 F 90 18 115/48 L 92 L 10/02/21 04:00 10/02/21 04:00 10/02/21 04:00 10/02/21 04:00 10/02/21 04:00 I & O for Last 24 hours: Intake & Output 09/29/21 09/30/21 10/01/21 10/02/21 23:59 23:59 23:59 23:59 Intake Total 2301 / 2301 600 / 600 480 / 480 850 / 850 Output Total 2150 / 2150 3800 / 4300 500 / 500 Balance 151 / 151 600 / -1200 -3320 / -3820 350 / 350 Weight 81.5 kg 79.152 kg 83.688 kg 83.688 kg Microbiology Reports for the Last 24 Hours: Microbiology 09/29/21 10:04 Blood Blood Culture - Preliminary NO GROWTH AFTER 48 HOURS 09/29/21 10:04 Blood Blood Culture - Preliminary NO GROWTH AFTER 48 HOURS Narrative: Pleasant and talkative female, no acute distress Lungs clear to auscultation, no wheeze or crackles Heart rate regular, no murmurs or gallops Abdomen soft, no rebound or guarding, bowel sounds active 1+ edema in bilateral LE. mild tenderness to touch, No redness or warmth No rash on skin Alert and oriented x3 baseline right sided deficits noted. Assessment and Plan (1) Pyelonephritis Status: Acute Category: Medical Code(s): N12 - Tubulo-interstitial nephritis, not specified as acute or chronic (2) Sepsis Status: Acute Qualifiers: Sepsis type: sepsis due to unspecified organism Sepsis acute organ dysfunction status: without acute organ dysfunction Qualified Code(s): A41.9 - Sepsis, unspecified organism Category: Medical Code(s): A41.9 - Sepsis, unspecified organism (3) Ureteral calculus Status: Acute Category: Medical Code(s): N20.1 - Calculus of ureter (4) History of malignant neoplasm of brain Status: Acute Category: Medical Code(s): Z85.841 - Personal history of malignant neoplasm of brain (5) Plantarflexion deformity of right foot Status: Acute Category: Medical Code(s): M21.6X1 - Other acquired deformities of right foot (6) Neuropathy Status: Chronic Category: Medical Code(s): G62.9 - Polyneuropathy, unspecified (7) E. coli bacteremia Status: Acute Category: Medical Code(s): R78.81 - Bacteremia; B96.20 - Unspecified Escherichia coli [E. coli] as the cause of diseases classified elsewhere - Assessment and plan all Dx Assessment and Plan for all problems:: 71-year-old female who presented with sepsis secondary to pyelonephritis from an obstructing kidney stone. Urology consulted, appreciate their recommendations/assistance. Patient clinically stable, Symptoms have deffervesced at this time responding to IV antibiotics. Continue ceftriaxone based on blood and urine cultures. Positive for E. coli sensitive to ceftriaxone. today is day 7 of 14 of antibiotic therapy. Culture also sensitive to levofloxacin. Will transition to levofloxacin at time of discharge to complete total course given ease of administration. last day 10/09 - s/p stent placement by urology. DC'd Yun - Azo for dysuria Continue gabapentin for neuropathy Hemiplegia, right sided - baseline, complicates her care. Class 1 obesity - complicates all aspects of her care. DNR Patient stable for discharge at this time. Awaiting placement at shelter facility. Will transition to oral antibiotics and plan for discharge over the coming days pending culture results.
[2021-10-02 08:00] VITALS: BP 110/65; PULSE 83; RESP 16; TEMP 37.6; O2SAT 91; O2SAT 92
--- NOTE | 2021-10-02 09:01 | HMH.ACPN ---
Internal Medicine - PN: Subj *Date: 10/02/21 *Time: 09:01 Exam Vital signs and Labs for Last 24 Hours: Temp Pulse Resp BP Pulse Ox 99.7 F H 83 16 110/65 91 L 10/02/21 08:00 10/02/21 08:00 10/02/21 08:00 10/02/21 08:00 10/02/21 08:00 I & O for Last 24 hours: Intake & Output 09/29/21 09/30/21 10/01/21 10/02/21 23:59 23:59 23:59 23:59 Intake Total 2301 / 2301 600 / 600 480 / 480 1090 / 1090 Output Total 2150 / 2150 3800 / 4300 500 / 500 Balance 151 / 151 600 / -1200 -3320 / -3820 590 / 590 Weight 81.5 kg 79.152 kg 83.688 kg 83.688 kg Microbiology Reports for the Last 24 Hours: Microbiology 09/29/21 10:04 Blood Blood Culture - Preliminary NO GROWTH AFTER 48 HOURS 09/29/21 10:04 Blood Blood Culture - Preliminary NO GROWTH AFTER 48 HOURS Assessment and Plan (1) Pyelonephritis Status: Acute Category: Medical Code(s): N12 - Tubulo-interstitial nephritis, not specified as acute or chronic (2) Sepsis Status: Acute Qualifiers: Sepsis type: sepsis due to unspecified organism Sepsis acute organ dysfunction status: without acute organ dysfunction Qualified Code(s): A41.9 - Sepsis, unspecified organism Category: Medical Code(s): A41.9 - Sepsis, unspecified organism (3) Ureteral calculus Status: Acute Category: Medical Code(s): N20.1 - Calculus of ureter (4) History of malignant neoplasm of brain Status: Acute Category: Medical Code(s): Z85.841 - Personal history of malignant neoplasm of brain (5) Plantarflexion deformity of right foot Status: Acute Category: Medical Code(s): M21.6X1 - Other acquired deformities of right foot (6) Neuropathy Status: Chronic Category: Medical Code(s): G62.9 - Polyneuropathy, unspecified (7) E. coli bacteremia Status: Acute Category: Medical Code(s): R78.81 - Bacteremia; B96.20 - Unspecified Escherichia coli [E. coli] as the cause of diseases classified elsewhere The patient's infection will respond to the chosen ABx?: Yes Is the patient receiving the right drug, dose, and route?: Yes Could a more targeted ABx be ordered?: No (E. COLI SENSITIVE TO ROCEPHIN)
[2021-10-02 12:45] LABS: Coronavirus 19, PCR Not Detected (NotDetected); Influenza A, PCR Not Detected (NotDetected); Influenza B, PCR Not Detected (NotDetected)
--- NOTE | 2021-10-02 13:16 | DIET.NUTRFU ---
Pt continues needing assistance with meals, limited mobility in right arm. Reports that she is a picky eater, encouraged her to review menu with staff. Sodium is slightly depleted, IVF in place. Weight is stable. Plans to discharge to long-term care, waiting for availability.
[2021-10-02 16:00] VITALS: BP 151/69; PULSE 82; RESP 16; TEMP 37.6; O2SAT 95
[2021-10-02 20:00] VITALS: BP 137/58; PULSE 91; RESP 16; TEMP 38.2; O2SAT 89; O2SAT 90
[2021-10-03 04:00] VITALS: BP 130/62; PULSE 86; RESP 20; TEMP 37.3; O2SAT 90
[2021-10-03 04:59] VITALS: BMI 32.1
[2021-10-03 08:00] VITALS: BP 172/80; PULSE 86; RESP 17; TEMP 36.5; O2SAT 91
--- NOTE | 2021-10-03 08:12 | XR_ITS ---
FINAL REPORT CLINICAL HISTORY: f/u icu exam COMPARISON: September 26, 2021 FINDINGS: SINGLE VIEW CHEST Heart is normal in size. The mediastinum is within normal limits. There is a worsening small left pleural effusion. There is a left lung basilar opacity which may be due to atelectasis. The right lung is clear. The bony thorax is intact. IMPRESSION: Worsening small left pleural effusion and mild left basilar opacity which may be due to atelectasis. Reviewed, Interpreted and Dictated by Ed Izaguirre III, MD Transcribed by ONESIMO Guerrero Authenticated by Ed Izaguirre III, MD on 10/03/2021 10:33:45 AM [facility]
[2021-10-03 08:50] LABS: Basophils # 0.2 K/mm3 (0-0.2); Basophils % 1.8 % (0.1-2.0); Eosinophils # 0.2 K/mm3 (0.0-0.4); Eosinophils % 1.8 % (0.1-12.0); Hematocrit 36.5 % (37.0-47.0); Hemoglobin 11.9 g/dL (12.2-16.2); Lymphocytes # 1.8 K/mm3 (0.7-4.5); Lymphocytes % 16.6 % (10-50); Mean Corpuscular HGB Conc 32.5 g/dL (31.8-35.4); Mean Corpuscular Hemoglobin 29.1 pg (27.0-31.2); Mean Corpuscular Volume 89.6 fl (81-99); Mean Platelet Volume 8.4 fl (7.4-10.4); Monocytes # 0.7 K/mm3 (0.1-1.0); Monocytes % 6.4 % (1.7-9.3); Neutrophils % 73.3 % (37.0-80.0); Platelet Count 413 K/mm3 (142-424); Red Blood Count 4.08 M/mm3 (4.20-5.40); White Blood Count 10.9 K/mm3 (4.8-10.8)
[2021-10-03 08:53] LABS: Chloride 103 mmol/L (98-107); Potassium 4.1 mmoL/L (3.5-5.1); Sodium 130 mmol/L (136-145)
[2021-10-03 08:56] LABS: Anion Gap 7.1 mEq/L (5-15); Blood Urea Nitrogen 10 mg/dl (7-17); Calcium 8.4 mg/dl (8.4-10.2); Carbon Dioxide 24 mmol/L (22.0-30.0); Creatinine Clearance Estimated 64 mL/min (50-200); Estimated Glomerular Filt Rate 99 ml/min (>60); GFR (African American) 120 ML/MIN (>60); Glucose 109 mg/dl (74-100)
--- NOTE | 2021-10-03 09:03 | P.PN_ITS ---
Internal Medicine - PN: Subj *Date: 10/03/21 *Time: 09:03 Interval history: Overall patient did well through the night, remained off oxygen. Eating well. Unfortunately has had a very low-grade temperature elevation to 100.8 overnight. Exam Vital signs and Labs for Last 24 Hours: Temp Pulse Resp BP Pulse Ox 97.7 F 86 17 172/80 H 91 L 10/03/21 08:00 10/03/21 08:00 10/03/21 08:00 10/03/21 08:00 10/03/21 08:00 Laboratory Results - last 24 hr 10/02/21 12:05: SARS-CoV-2 (PCR) Not detected, Influenza A Untype (PCR) Not detected, Influenza Type B (PCR) Not detected 10/03/21 08:30: WBC 10.9 H, RBC 4.08 L, Hgb 11.9 L, Hct 36.5 L, MCV 89.6, MCH 29.1, MCHC 32.5, RDW 14.0, Plt Count 413 D, MPV 8.4, Neut % (Auto) 73.3, Lymph % (Auto) 16.6, [place] % (Auto) 6.4, Eos % (Auto) 1.8, Baso % (Auto) 1.8, Neut # (Auto) 8.0 H, Lymph # (Auto) 1.8, [place] # (Auto) 0.7, Eos # (Auto) 0.2, Baso # (Auto) 0.2 10/03/21 08:30: Sodium 130 L, Potassium 4.1, Chloride 103, Carbon Dioxide 24, Anion Gap 7.1, BUN 10, Creatinine 0.60, Estimated Creat Clear 64, Estimated GFR 99, Est GFR ( Amer) 120, Glucose 109 H, Calcium 8.4 I & O for Last 24 hours: Intake & Output 09/30/21 10/01/21 10/02/21 10/03/21 11:59 11:59 11:59 11:59 Intake Total 2301 / 2301 600 / 600 1330 / 1330 720 / 720 Output Total 1100 / 1100 1800 / 1800 2500 / 2500 4350 / 4350 Balance 1201 / 1201 -1200 / -1200 -1170 / -1170 -3630 / -3630 Weight 174 lb 8 oz 184 lb 8 oz 184 lb 8 oz 170 lb 6.4 oz Narrative: Alert, pleasant. Talkative. Good air movement. Heart rate regular. Abdomen soft. No change in neurologic exam. Assessment and Plan (1) Pyelonephritis Status: Acute Category: Medical Code(s): N12 - Tubulo-interstitial nephritis, not specified as acute or chronic (2) Sepsis Status: Acute Qualifiers: Sepsis type: sepsis due to unspecified organism Sepsis acute organ dysfunction status: without acute organ dysfunction Qualified Code(s): A41.9 - Sepsis, unspecified organism Category: Medical Code(s): A41.9 - Sepsis, unspecified organism (3) Ureteral calculus Status: Acute Category: Medical Code(s): N20.1 - Calculus of ureter (4) History of malignant neoplasm of brain Status: Acute Category: Medical Code(s): Z85.841 - Personal history of malignant neoplasm of brain (5) Plantarflexion deformity of right foot Status: Acute Category: Medical Code(s): M21.6X1 - Other acquired deformities of right foot (6) Neuropathy Status: Chronic Category: Medical Code(s): G62.9 - Polyneuropathy, unspecified (7) E. coli bacteremia Status: Acute Category: Medical Code(s): R78.81 - Bacteremia; B96.20 - Unspecified Escherichia coli [E. coli] as the cause of diseases classified elsewhere - Assessment and plan all Dx Assessment and Plan for all problems:: Overall doing well. Unsure about fever. Check labs, check chest x-ray. If afebrile through the next 24 hours transfer to skilled nursing for continued care.
[2021-10-03 14:00] VITALS: TEMP 37.2
[2021-10-03 15:32] VITALS: BP 124/67; PULSE 84; RESP 16; TEMP 36.7; O2SAT 93
--- NOTE | 2021-10-03 16:20 | PC.NURSE ---
Dr. Tejada aware that pt's u/s guided IV was bad, he stated to leave out and changed IV abt (rocephin) to a x 1 IM dose 500 mg. He also ordered docusate prn per oct.
[2021-10-03 20:00] VITALS: BP 144/69; PULSE 87; RESP 16; TEMP 36.4; O2SAT 90
[2021-10-04 04:00] VITALS: BP 138/66; PULSE 86; RESP 18; TEMP 36.7; O2SAT 90
[2021-10-04 05:00] VITALS: BMI 32.7
[2021-10-04 08:00] VITALS: BP 137/62; PULSE 68; RESP 18; TEMP 36.8; O2SAT 92
--- NOTE | 2021-10-04 08:44 | HMH.DCSUM ---
General - General Admission date:: 09/26/21 Discharge date: 10/04/21 HPI HPI: 71-year-old white female with significant debility status post left side paresthesia and hemiparesis from complex neurosurgical intervention several years ago for meningioma, who has had 2 weeks of increasing fatigue, fevers and feeling poorly, daughter brought her to the emergency department today where she was found to be febrile, afflicted with leukocytosis and evidence of a urinary tract infection with pyelonephritis clinically. CT scan showed obstructing right ureteral stone with very mild hydronephrosis. Admitted for IV antibiotics, IV fluids, pain control and urology consultation. Hospital Course Hospital Course: Patient was admitted. Diagnosed with sepsis/bacteremia/urinary tract infection with retained right ureteral stone and mild hydronephrosis. Broad-spectrum IV antibiotics were started and patient was admitted. Urology was consulted and the following day after admission perform cystoscopy with stone removal and relief of the hydronephrosis. Urine and blood cultures grew E. coli, sensitive to ceftriaxone. Patient did well, stabilized, PT evaluated her and felt that she would do well with ongoing PT in a skilled care environment. She and her daughter are also leaning towards permanent placement in long-term care given her multiple and significant comorbidities. The patient improved vis-?-vis speech, activity and eating. Had a minimal oxygen requirement during her stay but this is now resolved and she is on room air. A bed was found for her at the [facility]. She will be transferred there today. Medications will be as noted. She will be on cefdinir 300 twice daily for the next 7 days to finish up her course of antibiotics for sepsis. Repeat blood cultures after initiation of antibiotic therapy are negative. Please note she will need a PT/OT/speech therapy evaluation. Please note she will need a CBC and BMP in 3 days. Note she maintains a DNR status and this will need to be respected at the snf. Objective Vital signs: Temp Pulse Resp BP Pulse Ox 98.1 F 86 18 138/66 90 L 10/04/21 04:00 10/04/21 04:00 10/04/21 04:00 10/04/21 04:00 10/04/21 04:00 no acute distress, chronically ill appearing - *Routine HEENT Exam Head: Present: normocephalic Eye: Present: EOMI, PERRL ENT: Present: mucous membranes moist - *Routine Neck Exam Present: supple - *Routine Respiratory Exam Present: CTA bilaterally - *Routine Cardiovascular Exam Present: RRR - *Routine Abdominal Exam Present: soft, normoactive bowel sounds. Absent: tenderness - *Routine Extremities Exam Absent: cyanosis, clubbing, edema Comments: Flexion/contracture deformity of left arm as previously noted - *Routine Skin Exam Present: warm. Absent: rash - *Routine Neurological Exam Present: alert, oriented X3 Left-sided hemiparesis and contractures from prior neurologic surgery injury in the very remote past as previously noted. No new deficits except for global weakness from her illness. - Detailed Eye Exam Eyelids: Bilateral normal inspection Results Labs on day of discharge: Labs from last 24 hours 10/03/21 10/03/21 08:30 08:30 WBC 10.9 H RBC 4.08 L Hgb 11.9 L Hct 36.5 L MCV 89.6 MCH 29.1 MCHC 32.5 RDW 14.0 Plt Count 413 D MPV 8.4 Neut % (Auto) 73.3 Lymph % (Auto) 16.6 [place] % (Auto) 6.4 Eos % (Auto) 1.8 Baso % (Auto) 1.8 Neut # (Auto) 8.0 H Lymph # (Auto) 1.8 [place] # (Auto) 0.7 Eos # (Auto) 0.2 Baso # (Auto) 0.2 Sodium 130 L Potassium 4.1 Chloride 103 Carbon Dioxide 24 Anion Gap 7.1 BUN 10 Creatinine 0.60 Estimated Creat Clear 64 Estimated GFR 99 Est GFR ( Amer) 120 Glucose 109 H Calcium 8.4 Preliminary micro results at discharge 09/29/21 10:04 Blood Culture - Preliminary Blood NO
[2021-10-04 08:46] LABS: Coronavirus 19, PCR Not Detected (NotDetected); Influenza A, PCR Not Detected (NotDetected); Influenza B, PCR Not Detected (NotDetected)
--- NOTE | 2021-10-04 12:44 | PC.NURSE ---
1245 REPORT GIVEN TO BENJAMIN CARRINGTON FERNDALE
--- NOTE | 2021-10-04 13:25 | PC.NURSE ---
1320 REPORT GIVEN TO EMS FOR TRANSPORT
== END 2021-10-04 13:20 | DRG 854 ==
LOC: ER 15:26 → 2ND 15:37
PROVIDERS: Internal Medicine Adolescent Medicine; Urology; Admitting Provider Internal Medicine Adolescent Medicine; Emergency Provider Emergency Medicine; PCP Internal Medicine Adolescent Medicine; Visit Provider Internal Medicine Adolescent Medicine
PROC: 0TJB8ZZ Inspection of Bladder, Via Natural or Artificial Opening Endoscopic (ICD-10-PCS; CPT 52000; principal; 2021-09-27 08:45)
DX: A41.51 Sepsis due to Escherichia coli [E. coli] (principal); N20.1 Calculus of ureter; G81.94 Hemiplegia, unspecified affecting left nondominant side; N13.6 Pyonephrosis; M21.6X1 Other acquired deformities of right foot; Z85.841 Personal history of malignant neoplasm of brain; Z85.828 Personal history of other malignant neoplasm of skin; M81.0 Age-related osteoporosis without current pathological fracture; E78.5 Hyperlipidemia, unspecified; K21.9 Gastro-esophageal reflux disease without esophagitis; G62.9 Polyneuropathy, unspecified; B96.20 Unspecified Escherichia coli [E. coli] as the cause of diseases classified elsewhere; C50.919 Malignant neoplasm of unspecified site of unspecified female breast; E66.9 Obesity, unspecified; Z68.32 Body mass index [BMI] 32.0-32.9, adult; Z66 Do not resuscitate
CPT/HCPCS: 52332; 36415; 70450; 71045; 74018; 74176; 80048; 80053; 80074; 80076; 81001; 83605; 84145; 84484; 85007; 85025; 85610; 85651; 86140; 87040; 87077; 87086; 87088; 87186; 93005; 93971; 96365; 96375; 97110; 97162; 97165; 97530; 99285; C2617; C9803; J0696; J2405; U0003; U0005

== ENCOUNTER 2021-10-15 11:02 | Day surgery (SDC) | payer MEDICARE, MEDICAID, SELFPAY ==
[2021-10-15 11:25] VITALS: BMI 30.4
[2021-10-15 11:33] VITALS: BP 127/75; PULSE 94; RESP 18; TEMP 36.6; O2SAT 98
[2021-10-15 13:05] VITALS: BP 134/83; PULSE 89; RESP 18; TEMP 36.7; O2SAT 94
[2021-10-15 13:20] VITALS: BP 153/81; PULSE 89; RESP 18; O2SAT 97
--- NOTE | 2021-10-15 14:37 | HMH.OPNOTE ---
Date of procedure: 10/15/21 Pre-op Diagnosis:: Ureteral stone and urosepsis status post right stent placement Post-op Diagnosis:: Same Procedure performed:: Cystoscopy with right stent removal Surgeon:: Sami Yan MD Anesthesia: local Estimated blood loss (mL): 0 Clinical Note:: 71-year-old white female recently hospitalized with urosepsis due to an obstructing 2 mm right distal ureteral stone. A right ureteral stent was placed in her white count returned to normal. She returns today for right stent removal. Operative findings:: Stent removed without difficulty Operative note:: Patient taken to the operating room after informed consent was obtained. On the stretcher she was prepped draped in the standard surgical fashion and 2% lidocaine placed into the urethra. After a few minutes the flexible cystoscope passed into the urethra and into the bladder without difficulty. Stent was noted from the right ureteral orifice and flexible graspers were passed through this scope and the stent grasped and removed without difficulty. Patient tolerated procedure well no complications. Discharged home with a 3-day course of cefdinir. Condition: stable Disposition: same day Specimens:: Right stent Complications:: None
== END 2021-10-15 13:20 | disposition home or self-care (01) ==
LOC: OUTP 11:04
PROVIDERS: Ophthalmology; PCP Internal Medicine Adolescent Medicine; Visit Provider Urology
PROC: (CPT 52310; principal; 2021-10-15 12:00)
DX: N20.1 Calculus of ureter (principal); T83.9XXA Unspecified complication of genitourinary prosthetic device, implant and graft, initial encounter; Z96.0 Presence of urogenital implants; Z86.718 Personal history of other venous thrombosis and embolism; Z87.442 Personal history of urinary calculi; Z87.440 Personal history of urinary (tract) infections; E11.9 Type 2 diabetes mellitus without complications; K21.9 Gastro-esophageal reflux disease without esophagitis; E78.5 Hyperlipidemia, unspecified; M81.0 Age-related osteoporosis without current pathological fracture; Z85.841 Personal history of malignant neoplasm of brain; Z79.899 Other long term (current) drug therapy; Z88.2 Allergy status to sulfonamides
CPT/HCPCS: 52310

== ENCOUNTER → 2021-11-13 12:37 | Outpatient (CLI) | payer MEDICARE, MEDICAID, SELFPAY ==
--- NOTE | 2021-11-13 12:43 | XR_ITS ---
FINAL REPORT CLINICAL HISTORY: ureteral stone FINDINGS: A single view of the abdomen was obtained. There is a nonobstructive bowel gas pattern. There are no abnormally dilated loops of small bowel. There is mild to moderate lumbar scoliosis convex to left. There are postoperative changes in the mid pelvis. IMPRESSION: Nonobstructive bowel gas pattern. Reviewed, Interpreted and Dictated by Edu Porter MD Transcribed by Sonia Crook Authenticated by Edu Porter MD on 11/13/2021 01:54:02 PM [facility]
== END ==
PROVIDERS: PCP Internal Medicine Adolescent Medicine; Visit Provider Urology
DX: N20.1 Calculus of ureter (principal); N20.0 Calculus of kidney; B96.20 Unspecified Escherichia coli [E. coli] as the cause of diseases classified elsewhere
CPT/HCPCS: 74018; 87086; 87088; 87186

== ENCOUNTER → 2021-11-13 16:13 | Outpatient (CLI) | payer MEDICARE, MEDICAID, SELFPAY | PROVIDERS: Visit Provider Urology | DX: N20.0 Calculus of kidney (principal) ==

== ENCOUNTER → 2021-12-10 10:41 | Outpatient (CLI) | payer MEDICARE, MEDICAID, SELFPAY ==
--- NOTE | 2021-12-10 10:46 | XR_ITS ---
FINAL REPORT CLINICAL HISTORY: KARRIE FEET/ANKLE PAIN SIMULATED WT BEARING FINDINGS: RIGHT ANKLE: Three simulated weight-bearing views of the right ankle were obtained. There is no acute fracture or dislocation. There are mild degenerative changes. There are mild vascular calcifications. IMPRESSION: Mild degenerative changes. Reviewed, Interpreted and Dictated by Ed Izaguirre III, MD Transcribed by Chito Santoyo Authenticated by Ed Izaguirre III, MD on 12/10/2021 01:33:11 PM [facility]
--- NOTE | 2021-12-10 10:46 | XR_ITS ---
FINAL REPORT CLINICAL HISTORY: KARRIE FEET/ANKLE PAIN SIMULATED WT BEARING COMPARISON: DECEMBER 18, 2020 FINDINGS: LEFT FOOT: Three simulated weight-bearing views of the left foot were obtained. There is no acute fracture or dislocation. There are mild degenerative changes. There is no soft tissue abnormality. IMPRESSION: Mild degenerative changes. Reviewed, Interpreted and Dictated by Ed Izaguirre III, MD Transcribed by Chito Santoyo Authenticated by Ed Izaguirre III, MD on 12/10/2021 01:33:05 PM [facility]
--- NOTE | 2021-12-10 10:46 | XR_ITS ---
FINAL REPORT CLINICAL HISTORY: KARRIE FEET/ANKLE PAIN SIMULATED WT BEARING FINDINGS: LEFT ANKLE: Three simulated weight-bearing views of the left ankle were obtained. There is no acute fracture or dislocation. The joint spaces and mortise are intact. There is no soft tissue abnormality. IMPRESSION: No acute process. Reviewed, Interpreted and Dictated by Ed Izaguirre III, MD Transcribed by Chito Santoyo Authenticated by Ed Izaguirre III, MD on 12/10/2021 01:33:13 PM [facility]
--- NOTE | 2021-12-10 10:46 | XR_ITS ---
FINAL REPORT CLINICAL HISTORY: KARRIE FEET/ANKLE PAIN SIMULATED WT BEARING FINDINGS: RIGHT FOOT: Three simulated weight-bearing views of the right foot were obtained. There is no acute fracture or dislocation. There are mild degenerative changes. There is mild hallux valgus deformity. There are mild vascular calcifications. IMPRESSION: Mild degenerative changes. Reviewed, Interpreted and Dictated by Ed Izaguirre III, MD Transcribed by Chito Santoyo Authenticated by Ed Izaguirre III, MD on 12/10/2021 01:33:05 PM [facility]
== END ==
PROVIDERS: PCP Internal Medicine Adolescent Medicine; Visit Provider Nurse Practitioner Family
DX: M25.572 Pain in left ankle and joints of left foot; M25.571 Pain in right ankle and joints of right foot; M79.672 Pain in left foot; M79.671 Pain in right foot
CPT/HCPCS: 73610; 73630

== ENCOUNTER 2022-04-14 11:18 | Emergency (ER) | payer MEDICARE, MEDICAID, SELFPAY ==
[2022-04-14] VITALS (7 sets, daily range): BP systolic 103–141; BP diastolic 57–70; PULSE 72–88; RESP 16–18; TEMP 36.4–37.4; O2SAT 88–96; BMI 32.1
--- NOTE | 2022-04-14 11:47 | CT_ITS ---
PROCEDURE INFORMATION: Exam: CT Abdomen And Pelvis With Contrast Exam date and time: 04/14/2022 12:37 PM Age: 71 years old Clinical indication: Abdominal pain; Generalized; Prior surgery; Surgery date: 6+ months; Surgery type: Choleycystectomy; Additional info: Abd pain, history of hernia TECHNIQUE: Imaging protocol: Computed tomography of the abdomen and pelvis with contrast. Radiation optimization: All CT scans at this facility use at least one of these dose optimization techniques: automated exposure control; mA and/or kV adjustment per patient size (includes targeted exams where dose is matched to clinical indication); or iterative reconstruction. Contrast material: ISOVUE; Contrast volume: 75 ml; Contrast route: IV; COMPARISON: CT ABDOMEN PELVIS WO CON 09/26/2021 1:40 PM FINDINGS: Lungs: Chronic calcified right basilar pulmonary granuloma. Worsened interstitial prominence and mild ground-glass opacities in the lower lungs compared with the previous exam, which could be increasing atelectasis versus ground-glass pneumonia or edema. There is no focal consolidation. Liver: A hypoattenuating 2 cm posterior right lobe liver lesion series 3, image 32, and coronal image 50, HU density 68, possible small hemangioma, but incompletely characterized on this single phase exam. Not well seen on the previous nonenhanced study. No hepatomegaly. Gallbladder and bile ducts: Cholecystectomy clips. No biliary dilatation. No calcified stones. Pancreas: Mild fatty infiltrative changes in the pancreas. No ductal dilatation. No mass. Spleen: No splenomegaly. Multiple calcified granulomas. Adrenal glands: A chronic small left adrenal nodule of approximately 1 cm by my measurement, slightly hypoenhancing, series 3, image 47; although this has indeterminate enhanced HU density of 60, HU density was approximately 6 in the same area on the prior nonenhanced scan, compare series 3, image 47 today versus series 3, image 44 on the prior exam, suggesting benign lesion such as adenoma. Unremarkable right adrenal. Kidneys and ureters: 4 mm hypoenhancing lateral right renal cortical nodule series 3, image 54, probably tiny cyst, but too small to accurately characterize. No suspicious mass requiring follow-up. No hydronephrosis, hydroureter, or calcified obstructing stone. Stomach and bowel: No acute findings in the stomach. Likely very small hiatal hernia. A chronic supraumbilical ventral abdominal wall hernia has significantly enlarged compared with 09/26/2021. The hernia now measures approximately 16 cm transversely, 9.7 cm length, 6 cm AP thickness, with a neck of approximately 4 cm diameter. On the prior study, a transverse colon loop minimally protrude into the hernia. On today's exam, larger segment of transverse colon protrudes into the hernia, but there is no mucosal edema, and no dilatation of the bowel within or proximal to the hernia to suggest high-grade mechanical obstruction. There is also small shallow 3.5 cm periumbilical hernia containing a nondilated, nonobstructed small intestinal loop, with no significant interval enlargement, or findings of obstruction or acute inflammation in this hernia. Chronic surgical sutures at the rectosigmoid junction. Diverticulosis coli, the sigmoid is mostly empty and contracted which likely accounts for slightly thickened appearance. Less likely would be acute diverticulitis or colitis, there is no pericolic fluid, no extraluminal gas bubbles. Appendix: No findings of appendicitis. Appendix again not identified. Intraperitoneal space: There is no significant free intraperitoneal fluid. There is no free intraperitoneal air.
--- NOTE | 2022-04-14 11:52 | HMH.EDGENADL ---
ED Disposition Clinical Impression: Urinary tract infection Qualifiers: Urinary tract infection type: acute cystitis Hematuria presence: with hematuria Qualified Code(s): N30.01 - Acute cystitis with hematuria Disposition: Home, Self-Care Condition on Discharge: Good Instructions: DI for Acute Abdominal Pain Additional Instructions: Follow-up with [facility] surgery for further definitive management of hernia. If you have inability to tolerate food or drink by mouth, inability to have bowel movements, no longer passing gas, intractable abdominal pain, blood in your stool, overlying skin changes, or any other concerning symptoms, return to the emergency department for further evaluation. Prescriptions: Cefdinir [Omnicef 300mg Capsule] 300 mg PO BID #20 cap Transmission Status: Received by [facility] Referrals: Thuan Tejada MD [Primary Care Provider] - - Critical Care Critical Care Time: No Attestation: On , the high probability of a clinically significant, sudden or life threatening deterioration of the following system(s) required my full and direct attention, intervention and personal management. The time I documented below is in addition to time spent performing reported procedures but includes the following listed in this critical care notation. Medical Decision Making - Santiago Inquiry Pt receiving controlled substance: No Vital Signs: 04/14/22 11:39 04/14/22 12:00 04/14/22 12:57 Temperature 99.3 F Temperature Source Oral Pulse Rate 80 80 Pulse Rate [Left Radial] 88 Respiratory Rate 18 Blood Pressure 106/57 L 110/59 L Blood Pressure [Right Arm] 141/70 H Blood Pressure Mean 73 76 Blood Pressure Mean [Right Arm] 93 Blood Pressure Source [Right Arm] Automatic Cuff Blood Pressure Position [Right Arm] Sitting 02 Sat by Pulse Oximetry 91 L 88 L 94 L Oxygen Delivery Method Room Air 04/14/22 13:00 04/14/22 13:30 04/14/22 14:00 Temperature Temperature Source Pulse Rate 78 79 72 Pulse Rate [Left Radial] Respiratory Rate Blood Pressure 103/62 L 111/59 L 106/62 L Blood Pressure [Right Arm] Blood Pressure Mean 74 75 75 Blood Pressure Mean [Right Arm] Blood Pressure Source [Right Arm] Blood Pressure Position [Right Arm] 02 Sat by Pulse Oximetry 96 94 L Oxygen Delivery Method - Lab Data Lab Results 04/14/22 11:49: Urine Color Yellow, Urine Appearance Sl cloudy, Urine pH 6.5, Ur Specific [place] 1.020, Urine Protein Negative, Urine Glucose (UA) Negative, Urine Ketones Negative, Urine Blood Negative, Urine Nitrate Positive, Urine Bilirubin Negative, Urine Urobilinogen 0.2, Ur Leukocyte Esterase 1+ A, Urine RBC None, Urine WBC 5-10, Ur Squamous Epith Cells Occasional, Urine Bacteria 2+ 04/14/22 11:55: WBC 3.8 L, RBC 4.66, Hgb 13.0, Hct 42.5, MCV 91.0, MCH 28.0, MCHC 30.7 L, RDW 15.0, Plt Count 306, MPV 8.1, Neut % (Auto) 60.5, Lymph % (Auto) 32.6, [place] % (Auto) 5.3, Eos % (Auto) 0.5, Baso % (Auto) 1.1, Neut # (Auto) 2.3, Lymph # (Auto) 1.2, [place] # (Auto) 0.2, Eos # (Auto) 0.0, Baso # (Auto) 0.0 04/14/22 11:55: Sodium 142, Potassium 3.7, Chloride 107, Carbon Dioxide 28, Anion Gap 10.7, BUN 8, Creatinine 0.60, Estimated Creat Clear 64, Estimated GFR 99, Est GFR ( Amer) 120, Glucose 121 H, Calcium 8.9, Total Bilirubin 0.3, AST 54 H, ALT 55, Alkaline Phosphatase 107, Total Protein 6.8, Albumin 3.9, Globulin 2.9, Albumin/Globulin Ratio 1.3, Lipase 101 04/14/22 11:55: Lactate 1.7 04/14/22 11:55: SARS-CoV-2 (PCR) Detected A, Influenza A Untype (PCR) Not detected, Influenza Type B (PCR) Not detected Result diagrams: 04/14/22 11:55 04/14/22 11:55 Orders (Tests/Meds): ED MEDICATIONS Discontinued Medications Generic Name Dose Route Start Last Admin Trade Name Freq PRN Reason Stop Dose Admin Ceftriaxone Sodium 1 gm/ 50 mls @ 100 mls/hr 04/14/22 13:08 04/14/22 13:43 Sodium Chloride IV 04/14/22 13:37 100 mls/hr ONCE ON
[2022-04-14 11:57] LABS: Microscopic, Urine URINE MICROSCOPIC (MICROSCOPIC)
[2022-04-14 11:58] LABS: Appearance,Urine SL CLOUDY (Clear); Bilirubin,Urine Negative (Negative); Blood, Urine Negative (Negative); Color,Urine YELLOW (Yellow); Glucose,Urine (UA) Negative (Negative); Ketones,Urine Negative (Negative); Leukocyte Esterase,Urine 1+ (Negative); Nitrate,Urine POSITIVE (Negative); PH,Urine 6.5 (5.0-8.5); Protein,Urine Negative (Negative); Urobilinogen,Urine 0.2 EU/dl (0.2)
[2022-04-14 12:03] LABS: Influenza A, PCR Not Detected (NotDetected); Influenza B, PCR Not Detected (NotDetected)
[2022-04-14 12:06] LABS: Basophils % 1.1 % (0.1-2.0); Eosinophils % 0.5 % (0.1-12.0); Hematocrit 42.5 % (37.0-47.0); Lymphocytes # 1.2 K/mm3 (0.7-4.5); Lymphocytes % 32.6 % (10-50); Mean Corpuscular HGB Conc 30.7 g/dL (31.8-35.4); Mean Platelet Volume 8.1 fl (7.4-10.4); Monocytes # 0.2 K/mm3 (0.1-1.0); Monocytes % 5.3 % (1.7-9.3); Neutrophils # 2.3 K/mm3 (1.8-7.8); Neutrophils % 60.5 % (37.0-80.0); Platelet Count 306 K/mm3 (142-424); Red Blood Count 4.66 M/mm3 (4.20-5.40); White Blood Count 3.8 K/mm3 (4.8-10.8)
--- NOTE | 2022-04-14 12:07 | PC.NURSE ---
pt placed on 2 L NC, oxygen sat 88 on RA, after administration pt up to 93 at this time. MD marrufo
[2022-04-14 12:09] LABS: Bacteria,Urine 2+ /lpf; Squamous Epithelial Cell,Urine Occasional #/hpf (0-5)
[2022-04-14 12:13] LABS: Alanine Aminotransferase 55 U/L (12-78); Albumin Level 3.9 g/dl (3.5-5.0); Albumin/Globulin Ratio 1.3 (1.1-1.8); Alkaline Phosphatase 107 U/L (38-126); Anion Gap 10.7 mEq/L (5-15); Aspartate Amino Transferase 54 U/L (14-36); Bilirubin,Total 0.3 mg/dl (0.2-1.3); Blood Urea Nitrogen 8 mg/dl (7-17); Calcium 8.9 mg/dl (8.4-10.2); Carbon Dioxide 28 mmol/L (22.0-30.0); Chloride 107 mmol/L (98-107); Creatinine Clearance Estimated 64 mL/min (50-200); Estimated Glomerular Filt Rate 99 ml/min (>60); GFR (African American) 120 ML/MIN (>60); Globulin 2.9 g/dL (1.3-3.2); Glucose 121 mg/dl (74-100); Lipase 101 U/L (23-300); Potassium 3.7 mmoL/L (3.5-5.1); Sodium 142 mmol/L (136-145); Total Protein,Serum 6.8 g/dl (6.3-8.2)
[2022-04-14 12:14] LABS: Lactic Acid 1.7 mmol/L (0.7-2.1)
[2022-04-14 12:27] LABS: Coronavirus 19, PCR Detected (NotDetected)
--- NOTE | 2022-04-14 12:32 | PC.NURSE ---
pt to rad.
--- NOTE | 2022-04-14 12:35 | PC.NURSE ---
pt to CT with natural gas basis trader by mal
--- NOTE | 2022-04-14 12:36 | PC.NURSE ---
pt in radiology
--- NOTE | 2022-04-14 12:51 | PC.NURSE ---
pt returned from CT with graduate assistant by mal
--- NOTE | 2022-04-14 13:55 | PC.NURSE ---
Pt's family member requesting drink for pt. I informed her that patient is NPO at this time but I can get mouth swabs for her. Provided mouth swabs. Pt resting comfortably in bed. No complaints of pain or nausea.
== END 2022-04-14 15:50 | disposition home or self-care (01) ==
PROVIDERS: Emergency Provider Emergency Medicine; PCP Internal Medicine Adolescent Medicine
DX: U07.1 COVID-19 (principal); N30.01 Acute cystitis with hematuria; B96.20 Unspecified Escherichia coli [E. coli] as the cause of diseases classified elsewhere; K42.9 Umbilical hernia without obstruction or gangrene
CPT/HCPCS: 74177; 80053; 81001; 83605; 83690; 85025; 87040; 87086; 87088; 87186; 96365; 96375; 99284; C9803; J0696; J2405; Q9967; U0003; U0005

== ENCOUNTER → 2022-10-28 10:53 | Outpatient (CLI) | payer MEDICARE, MEDICAID, SELFPAY ==
--- NOTE | 2022-10-28 11:02 | XR_ITS ---
FINAL REPORT CLINICAL HISTORY: PAIN,JOINT,KNEE PAIN FINDINGS: LEFT KNEE Three views of the left knee were obtained. There is no acute fracture or dislocation. There are mild degenerative changes. There is lateral subluxation of the tibia in relation to the distal femur. There is no joint effusion. Soft tissues are unremarkable. IMPRESSION: Mild degenerative changes with lateral subluxation of the tibia in relation to the distal femur. Reviewed, Interpreted and Dictated by Ed Izaguirre III, MD Transcribed by Sonia Crook Authenticated and [facility]
== END ==
PROVIDERS: PCP Nurse Practitioner Family; Visit Provider Nurse Practitioner Family
DX: M25.562 Pain in left knee (principal)
CPT/HCPCS: 73562

== ENCOUNTER → 2022-12-23 09:09 | Outpatient (CLI) | payer MEDICARE, MEDICAID, SELFPAY | PROVIDERS: PCP Internal Medicine Adolescent Medicine; Visit Provider Surgery | DX: Z01.812 Encounter for preprocedural laboratory examination (principal); K46.9 Unspecified abdominal hernia without obstruction or gangrene; Z11.52 Encounter for screening for COVID-19 | CPT/HCPCS: C9803; U0003; U0005 ==

== ENCOUNTER 2023-01-30 11:19 | Emergency (ER) | payer MEDICARE, MEDICAID, SELFPAY ==
[2023-01-30] VITALS (7 sets, daily range): BP systolic 130–175; BP diastolic 56–86; PULSE 66–84; RESP 16–20; TEMP 36.7; O2SAT 92–98; BMI 36.8
--- NOTE | 2023-01-30 11:25 | PC.NURSE ---
DR CANRES AT BEDSIDE
--- NOTE | 2023-01-30 11:26 | HMH.EDABDPAI ---
Discharge Plan Disposition Patient Disposition: Home, Self-Care Condition: Fair Chief Complaint: Back Pain/Injury Prescriptions Prescriptions: No Action baclofen 10 mg tablet 10 mg PO TID omeprazole 20 mg capsule,delayed release(DR/EC) 20 mg PO DAILY alendronate 70 mg tablet 70 mg PO WEEKLY gabapentin 100 mg capsule 200 mg PO TID Gemtesa 75 mg tablet 75 mg PO DAILY Qty: 30 5RF aspirin 81 MG tablet,delayed release (DR/EC) 81 mg PO HS smosengm-ifn-wiyr-FA-lutein 1 EACH tablet 1 each PO DAILY hydrocodone-acetaminophen 1 EACH tablet 1 tab PO TIDP PRN (Reason: Severe Pain) Qty: 90 0RF cefdinir 300 MG capsule 300 mg PO BID Qty: 20 0RF Referrals Follow up/Referrals: Thuan Tejada MD [Primary Care Provider] - See instructions Activity Restrictions/Add. Instructions Additional Instructions/Restrictions: Please follow-up with your primary care doctor in the next few days if you do not improve. I recommend you use some izud-ugf-khwsufo yeast infection cream to apply to your vaginal area as instructed on the packaging. The CT of your abdomen did not show any dangerous or life-threatening condition which could be responsible for your pain. I suspect that your pain may be due to sciatica. Please follow-up with your primary care doctor about that. Clinical Impressions Clinical Impression: Candidal vaginitis, Sciatica Instructions Patient Instructions: DI for Low Back Pain, DI for Vaginal Yeast Infection, DI for Back Pain With Sciatica Discharge ED Provider: Sheela Waite Abdominal Pain HPI General Chief Complaint: Back Pain/Injury Stated Complaint: back pain Time Seen by Provider: 01/30/23 11:26 Mode of Arrival: EMS Source of Information: Patient and EMS History of Present Illness HPI narrative: The patient presents to the emergency department complaining of a 3 to 4-day history of left flank pain radiating to the hip and left leg. She recently had abdominal hernia surgery. She has chronic atrophy of the right upper extremity. She also has a chronic right sided facial droop. He has chronic lower extremity edema. She denies any vomiting, nausea, diarrhea. She does complain of dysuria however. MD complaint: flank pain Related Data Home Medications Medication Instructions Recorded Confirmed baclofen 10 mg tablet 10 mg PO TID Muscle spasms 07/27/18 11/14/22 omeprazole 20 mg capsule,delayed 20 mg PO DAILY acid reflux 07/27/18 11/14/22 release alendronate 70 mg tablet 70 mg PO WEEKLY osteoporosis 11/15/20 11/14/22 prevention aspirin 81 mg tablet,delayed 81 mg PO HS Taken w/ chemo pill 02/19/21 11/14/22 release multivit with 1 each PO DAILY Supplement 09/26/21 11/14/22 zljqcuat-xvfu-QU-lutein 8 mg iron-400 mcg-300 mcg tablet gabapentin 100 mg capsule 200 mg PO TID Pain 12/10/21 11/14/22 Previous Rx's Medication Instructions Recorded hydrocodone 7.5 mg-acetaminophen 1 tab PO TIDP PRN Severe Pain #90 10/04/21 325 mg tablet tabs vibegron 75 mg tablet (Gemtesa) 75 mg PO DAILY #30 tabs 12/25/21 cefdinir 300 mg capsule 300 mg PO BID #20 caps 04/14/22 Allergies Allergy/AdvReac Type Severity Reaction Status Date / Time sulfamethoxazole Allergy Unknown Unknown Verified 11/14/22 10:27 allergy reaction [facility] Disclaimer: The information contained in this section may have been updated after the patient was seen, as this information can be updated by other users. Medical History (Updated 01/30/23 @ 13:43 by Sheela Waite MD) Osteoarthritis of left knee Social History Smoking Status: Never smoker second hand exposure: Yes alcohol intake: never substance use type: denies use current occupational status: disabled Travel in the last 8 weeks: None household members: none housing: skilled nursing current occupational exposures/hazards: No caffeine
[2023-01-30 11:57] LABS: Basophils % 0.4 % (0.1-2.0); Eosinophils # 0.3 K/mm3 (0.0-0.4); Eosinophils % 4.3 % (0.1-12.0); Hematocrit 44.3 % (37.0-47.0); Hemoglobin 13.6 g/dL (12.2-16.2); Lymphocytes % 28.1 % (10-50); Mean Corpuscular HGB Conc 30.7 g/dL (31.8-35.4); Mean Platelet Volume 7.7 fl (7.4-10.4); Monocytes # 0.5 K/mm3 (0.1-1.0); Monocytes % 6.3 % (1.7-9.3); Neutrophils # 4.4 K/mm3 (1.8-7.8); Neutrophils % 60.9 % (37.0-80.0); Platelet Count 275 K/mm3 (142-424); Red Blood Count 4.87 M/mm3 (4.20-5.40); Red Cell Distribution Width 14.7 % (11.5-17.5); White Blood Count 7.3 K/mm3 (4.8-10.8)
--- NOTE | 2023-01-30 12:00 | PC.NURSE ---
STERILE IN-OUT CATH PERFORMED AT THIS TIME, TOLERATED WELL. MD AT BEDSIDE FOR VAG EXAM
[2023-01-30 12:01] LABS: Chloride 105 mmol/L (98-107); Potassium 4.6 mmoL/L (3.5-5.1); Sodium 141 mmol/L (136-145)
[2023-01-30 12:03] LABS: Alanine Aminotransferase 30 U/L (12-78); Blood Urea Nitrogen 10 mg/dl (7-17); Creatinine Clearance Estimated 72 mL/min (50-200); Estimated Glomerular Filt Rate 82 ml/min (>60); GFR (African American) 100 ML/MIN (>60)
[2023-01-30 12:04] LABS: Albumin Level 4.1 g/dl (3.5-5.0); Albumin/Globulin Ratio 1.5 (1.1-1.8); Alkaline Phosphatase 94 U/L (38-126); Anion Gap 11.6 mEq/L (5-15); Aspartate Amino Transferase 27 U/L (14-36); Bilirubin,Total 0.3 mg/dl (0.2-1.3); Carbon Dioxide 29 mmol/L (22.0-30.0); Globulin 2.8 g/dL (1.3-3.2); Glucose 105 mg/dl (74-100); Lipase 84 U/L (23-300); Total Protein,Serum 6.9 g/dl (6.3-8.2)
--- NOTE | 2023-01-30 12:06 | CT_ITS ---
FINAL REPORT TECHNIQUE: After the administration of oral and intravenous contrast, axial images were obtained through the abdomen and pelvis by computed tomography. The study was performed with techniques to keep radiation dose as low as reasonably achievable, (ALARA). Individual dose reduction techniques using automated exposure control or adjustment of mA and/or kV according to the patient's size were employed. CLINICAL HISTORY: Flank pain radiating to the left lower extremity. COMPARISON: 04/14/2022 FINDINGS: Abdomen: No acute density is seen within the lung bases. Complex hypodense lesion posterior liver, similar to the prior study, measures 16 mm and favored to represent complex cyst. No stone disease or obstruction. Left adrenal nodule is similar to the prior study. Solid abdominal organs are unremarkable. No bowel obstruction is present. There is stranding in the central abdominal wall presumed to be postoperative change from hernia repair. There is a 25 mm irregular density within the omental fat of the central abdomen favored to represent postoperative inflammation. Pelvis: The appendix is not identified and there are no secondary signs of acute appendicitis. No bowel wall thickening is present. The uterus is normal. There is a dominant cyst in the left adnexa measuring 55 mm which is unchanged and most likely benign. There is no free fluid. IMPRESSION: No acute findings. Interval repair of central abdominal wall hernia with presumed postoperative change accounting for intra-abdominal and abdominal wall stranding. Reviewed, Interpreted and Dictated by Melissa Rogers MD Transcribed by Najma Carrasco Authenticated and [facility]
[2023-01-30 12:07] LABS: Microscopic, Urine URINE MICROSCOPIC (MICROSCOPIC)
--- NOTE | 2023-01-30 12:08 | PC.NURSE ---
ASSISTED ON [facility]
[2023-01-30 12:10] LABS: Appearance,Urine CLEAR (Clear); Bilirubin,Urine Negative (Negative); Blood, Urine Negative (Negative); Color,Urine YELLOW (Yellow); Glucose,Urine (UA) Negative (Negative); Ketones,Urine Negative (Negative); Leukocyte Esterase,Urine Negative (Negative); Nitrate,Urine Negative (Negative); PH,Urine 7.5 (5.0-8.5); Protein,Urine Negative (Negative); Specific Gravity, Urine 1.015 (1.005-1.030); Urobilinogen,Urine 0.2 EU/dl (0.2)
--- NOTE | 2023-01-30 12:20 | PC.NURSE ---
PT TO CT
--- NOTE | 2023-01-30 12:31 | PC.NURSE ---
PT RETURNED FROM CT, WARM BLANKET PROVIDED. FAMILY AT BEDSIDE
[2023-01-30 12:32] LABS: Amorphous Sediment,Urine 2+ /lpf; Bacteria,Urine Trace /lpf; RBC,Urine Occasional #/hpf (0-3)
--- NOTE | 2023-01-30 13:42 | PC.NURSE ---
DR CARNES AT BEDSIDE TO UPDATE PT AND FAMILY
== END 2023-01-30 14:35 | disposition home or self-care (01) ==
PROVIDERS: Emergency Provider Emergency Medicine; PCP Internal Medicine Adolescent Medicine
DX: B37.31 Acute candidiasis of vulva and vagina (principal); M54.42 Lumbago with sciatica, left side; M62.521 Muscle wasting and atrophy, not elsewhere classified, right upper arm; R60.9 Edema, unspecified; R29.810 Facial weakness
CPT/HCPCS: 74177; 80053; 81001; 83690; 85025; 99284; 99285; Q9967

== ENCOUNTER 2024-11-21 10:22 | Emergency (ER) | payer MEDICARE, MEDICAID, SELFPAY ==
[2024-11-21] VITALS (21 sets, daily range): BP systolic 84–156; BP diastolic 52–79; PULSE 72–111; RESP 13–16; TEMP 36.7–36.9; O2SAT 87–97; BMI 27.4
--- NOTE | 2024-11-21 11:45 | ED_ITS ---
Discharge Plan Disposition Chief Complaint: Headache Prescriptions Prescriptions: No Action baclofen 10 mg tablet 10 mg PO TID omeprazole 20 mg capsule,delayed release(DR/EC) 20 mg PO DAILY alendronate 70 mg tablet 70 mg PO WEEKLY gabapentin 100 mg capsule 200 mg PO TID Gemtesa 75 mg tablet 75 mg PO DAILY Qty: 30 5RF aspirin 81 MG tablet,delayed release (DR/EC) 81 mg PO HS lsvnvzhk-kpu-fjdr-FA-vit K-lut 1 EACH tablet 1 each PO DAILY hydrocodone-acetaminophen 1 EACH tablet 1 tab PO TIDP PRN (Reason: Severe Pain) Qty: 90 0RF cefdinir 300 MG capsule 300 mg PO BID Qty: 20 0RF Referrals Follow up/Referrals: Thuan Tejada MD [Primary Care Provider] - See instructions Print Language Print Language: Indonesian Discharge ED Provider: Anitha Lopez General Adult HPI General Chief complaint: Headache Stated complaint: Pain in back of head Time Seen by Provider: 11/21/24 11:44 Mode of Arrival: Ambulatory Source of Information: Patient Description of Symptoms (Recalled from ER Triage Doc. by RN): pt presents to ED with c/o headache. pt reports symptoms ongoing for the past week. headache has gotten worse with symptoms. 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 Patient has had a headache for 1 week that has progressively worsened is 10 out of 10 starting in the back of her skull radiating up to the front of her head headache is sharp and constant no aggravating or alleviating symptoms. No fever chills nausea vomiting diarrhea abdominal pain shortness of breath or chest pain. No visual changes. Related Data Home Medications ?Medication ?Instructions ?Recorded ?Confirmed baclofen 10 mg tablet 10 mg PO TID Muscle spasms 07/27/18 11/21/24 omeprazole 20 mg capsule,delayed 20 mg PO DAILY acid reflux 07/27/18 11/21/24 release alendronate 70 mg tablet 70 mg PO WEEKLY osteoporosis 11/15/20 11/21/24 prevention aspirin 81 mg tablet,delayed 81 mg PO HS Taken w/ chemo pill 02/19/21 11/21/24 release llxjejlq-rxpx-lzph 8 mg-folic 400 1 each PO DAILY Supplement 09/26/21 11/21/24 mcg-K 50 mcg-lutein 300 mcg tablet gabapentin 100 mg capsule 200 mg PO TID Pain 12/10/21 11/21/24 Previous Rx's ?Medication ?Instructions ?Recorded hydrocodone 7.5 mg-acetaminophen 1 tab PO TIDP PRN Severe Pain #90 10/04/21 325 mg tablet tabs vibegron 75 mg tablet (Gemtesa) 75 mg PO DAILY #30 tabs 12/25/21 cefdinir 300 mg capsule 300 mg PO BID #20 caps 04/14/22 Allergies Allergy/AdvReac Type Severity Reaction Status Date / Time sulfamethoxazole Allergy Unknown Unknown Verified 11/14/22 10:27 allergy reaction [facility] Disclaimer: The information contained in this section may have been updated after the patient was seen, as this information can be updated by other users. Medical History (Updated 01/30/23 @ 13:43 by Sheela Waite MD) Osteoarthritis of left knee Social History Smoking Status: Never smoker second hand exposure: Yes alcohol intake: never substance use type: denies use current occupational status: disabled Travel in the last 8 weeks: None household members: none housing: care home current occupational exposures/hazards: No caffeine: Yes Have you lived/traveled outside [place] in past 30 days?: No Contact w/someone who lives/traveled outside US past 30 days?: No Exposure to someone with infectious disease in past 14 days?: No Do you have a fever (greater than 100.4 F or 38 C)?: No Have you tested positive for COVID-19: No Exposed to someone with COVID-19 in past 14 days?: No Do you have a sore throat?: No Do you have a cough?: No Do you have any weakness?: No Do you have any diarrhea?: No Are you experiencing any unusual bleeding?: No Do you have any muscle aches/pain?: Yes Do you have any abdominal pain?: No Are you experiencing loss of taste or smell?: No Other Medical History Have you received the Flu Vaccine for this season: No Have you received the Pneumonia Vaccine: Yes ROS Obtained: Yes All systems reviewed & no additional complaints except as documented Physical Exam General General appearance: alert and in no apparent distress Head Head exam: atraumatic and normocephalic Eye Eye exam: Present PERRL and EOMI Neck Neck exam: Present tenderness (Left lateral trapezius) Respiratory Respiratory exam: Present normal lung sounds bilaterally; Absent respiratory distress Cardiovascular Cardiovascular exam: Present normal rhythm and tachycardia Abdominal Exam Abdominal exam: Present soft; Absent tenderness Neurological Exam Neurological exam: Present alert, oriented X3 and motor sensory deficit (Spastic paralysis of the right upper and right lower extremity, baseline decrease sensation right lower extremity right upper extremity); Absent CN II-XII intact (Decreased sensation right side of face baseline for patient) Medical Decision Making Medical Records Screening: Per USPSTF and CDC recommendations, given the prevalence of disease in our region, it is our hospital?s policy to screen for HIV and viral Hepatitis for all patients aged 18 and over and those with ongoing risk factors. [place] Inquiry Pt receiving controlled substance: No Vital Signs: 11/21/24 10:30 11/21/24 10:30 11/21/24 11:00 Temperature 98.5 F Temperature Source Oral Pulse Rate 81 85 Pulse Rate [Left Radial] 87 Respiratory Rate 13 16 Blood Pressure 128/69 129/75 Blood Pressure [Right Arm] 156/79 H Blood Pressure Mean 108 Blood Pressure Mean [Right Arm] 104 02 Sat by Pulse Oximetry 93 L 92 L 92 L Oxygen Delivery Method Room Air Room Air 11/21/24 11:30 11/21/24 12:01 11/21/24 12:30 Temperature Temperature Source Pulse Rate 83 72 111 H Pulse Rate [Left Radial] Respiratory Rate Blood Pressure 107/66 L 122/62 154/78 H Blood Pressure [Right Arm] Blood Pressure Mean Blood Pressure Mean [Right Arm] 02 Sat by Pulse Oximetry 91 L 95 96 Oxygen Delivery Method Room Air Room Air Room Air 11/21/24 13:00 11/21/24 13:15 11/21/24 14:00 Temperature Temperature Source Pulse Rate 79 80 94 H Pulse Rate [Left Radial] Respiratory Rate Blood Pressure 136/65 141/67 H Blood Pressure [Right Arm] Blood Pressure Mean Blood Pressure Mean [Right Arm] 02 Sat by Pulse Oximetry 97 93 L 93 L Oxygen Delivery Method Room Air Lab Data Lab Results 11/21/24 10:45: WBC 7.4, RBC 4.76, Hgb 14.1, Hct 43.8, MCV 92.0, MCH 29.6, MCHC 32.2, RDW 13.5, Plt Count 319, MPV 9.7, Neut % (Auto) 59.3, Lymph % (Auto) 29.4, [place] % (Auto) 8.5, Eos % (Auto) 2.2, Baso % (Auto) 0.3, Neut # (Auto) 4.4, Lymph # (Auto) 2.2, [place] # (Auto) 0.6, Eos # (Auto) 0.2, Baso # (Auto) 0.0, ESR 23, Sodium 139, Potassium 4.6, Chloride 104, Carbon Dioxide 26, Anion Gap 13.6, BUN 14, Creatinine 0.80, Estimated Creat Clear 54, Estimated GFR 70, Est GFR ( Amer) 85, Glucose 117 H, Calcium 9.7, Magnesium 1.9, Total Bilirubin 0.5, AST 28, ALT 31, Alkaline Phosphatase 79, C-Reactive Protein 0.7, Total Protein 7.0, Albumin 4.5, Globulin 2.5, Albumin/Globulin Ratio 1.8, HCV Ab EVER w/Rflx PCR Qn Negative, HIV Ag/Ab Combo Qual Negative 11/21/24 10:45 11/21/24 10:45 Orders (Tests/Meds): ED MEDICATIONS Generic Name Dose Route Start Last Admin Trade Name Freq PRN Reason Stop Dose Admin Baclofen 10 mg 11/21/24 17:00 11/21/24 14:38 Baclofen 10mg Tablet PO 12/21/24 16:59 10 mg QID TAYLOR Administration Discontinued Medications Generic Name Dose Route Start Last Admin Trade Name Freq PRN Reason Stop Dose Admin Acetaminophen 1,000 mg 11/21/24 13:55 11/21/24 14:11 Acetaminophen 500mg Tab PO 11/21/24 13:56 1,000 mg ONCE ONE Administration Diphenhydramine HCl 25 mg 11/21/24 11:54 11/21/24 12:21 Diphenhydramine 50mg/Ml Vial IV 11/21/24 11:55 25 mg ONCE ONE Administration Gabapentin 200 mg 11/21/24 14:02 11/21/24 14:11 Gabapentin 100mg Capsule PO 11/21/24 14:03 200 mg ONCE ONE Administration Magnesium Sulfate 2 gm in 50 mls @ 50 mls/hr 11/21/24 11:54 11/21/24 12:21 Magnesium Sulfate 2gm/50ml Premix IV 11/21/24 12:53 50 mls/hr ONCE ONE Administration Lactated Ringer's 500 mls @ 999 mls/hr 11/21/24 11:54 11/21/24 12:20 Lactated Ringer's 1000 Ml Bag IV 11/21/24 12:24 999 mls/hr .Q31M ONE Administration Ketorolac Tromethamine 15 mg 11/21/24 11:54 11/21/24 12:20 Ketorolac 30mg/Ml Vial IV 11/21/24 11:55 15 mg ONCE ONE Administration Lidocaine 1 each 11/21/24 13:55 11/21/24 14:11 Lidocaine 5% Transdermal Patch TD 11/21/24 13:56 1 each ONCE ONE Administration Lidocaine/Epinephrine 10 ml 11/21/24 13:16 11/21/24 13:33 Lidocaine 1% W/Epi 1:100,000 20ml Vial SQ 11/21/24 13:17 10 ml ONCE ONE Administration Metoclopramide HCl 10 mg 11/21/24 16:30 11/21/24 12:20 Metoclopramide Hcl 10mg/2ml Vial IVP 12/21/24 16:29 10 mg ACHS TAYLOR Administration Morphine Sulfate 4 mg 11/21/24 13:55 11/21/24 14:11 Morphine 4mg/Ml Syringe IV 11/21/24 13:56 4 mg ONCE ONE Administration ORDERS Category Date Time Status CT Venogram head Stat Cat Scan 11/21/24 14:[address] angio head Stat Cat Scan 11/21/24 15:[address] angio neck Stat Cat Scan 11/21/24 15:[address] cervical spine wo con Stat Cat Scan 11/21/24 11:[address] head/brain wo con Stat Cat Scan 11/21/24 11:53 Completed C-Reactive Protein Stat Lab 11/21/24 10:45 Completed Complete Blood Count Auto Diff Stat Lab 11/21/24 10:45 Completed Comprehensive Metabolic Panel Stat Lab 11/21/24 10:45 Completed Erythrocyte Sedimentation Rate Stat Lab 11/21/24 10:45 Completed HIV Combo Stat Lab 11/21/24 10:45 Completed Hepatitis C Ab Qual. W/ RFX Stat Lab 11/21/24 10:45 Completed Magnesium Stat Lab 11/21/24 10:45 Completed Medical Decision Narrative: In summary, this 74-year-old female presents to the emergency department today with headache. On initial evaluation patient is normal heart rate normotensive saturating properly on room air afebrile no acute distress. Differential diagnosis includes but is not limited to intracranial tumor intracranial hemorrhage migraine tension headache giant cell temporal arteritis viral syndrome sepsis muscle spasm. Based on these concerns, I ordered CBC CMP ESR CRP magnesium CT head C-spine. Patient received Toradol Reglan Benadryl lactated Ringer's magnesium for treatment. On reevaluation patient has minimal improvement of symptoms. Headache is still 10 out of 10. Occipital nerve block performed with mild improvement of symptoms patient reports that she is still experiencing a 9 out of 10 headache the posterior aspect of her left occiput. Patient given morphine Tylenol home dose of baclofen and gabapentin which she has not taken today. CT head imaging personally interpreted demonstrate prior encephalomalacia no acute intracranial hemorrhage or mass. CTAs of head and neck and CTV ordered for evaluation of spontaneous vertebral artery dissection for cerebral venous sinus thrombosis. At 3 PM transfer of care was given to Dr. Munoz to follow-up CTA and CTV. Critical Care Critical Care Time Critical Care Time: No
--- NOTE | 2024-11-21 11:53 | CT_ITS ---
PROCEDURE INFORMATION: Exam: CT Cervical Spine Without Contrast Exam date and time: 11/21/2024 12:12 PM Age: 74 years old Clinical indication: Pain; Other: Headache; Additional info: ROTH TECHNIQUE: Imaging protocol: Computed tomography of the cervical spine without contrast. Radiation optimization: All CT scans at this facility use at least one of these dose optimization techniques: automated exposure control; mA and/or kV adjustment per patient size (includes targeted exams where dose is matched to clinical indication); or iterative reconstruction. COMPARISON: CT HEAD/BRAIN WO CON 11/21/2024 12:08 PM FINDINGS: Bones: Vertebral alignment is maintained. There is preservation of vertebral body heights. Facet joints are well aligned. Odontoid process is intact. Atlantoaxial interval is maintained. No acute fracture. No osseous encroachment of the spinal canal. No significant neural foraminal narrowing at any level. Lungs: Lung apices are normal. Soft tissues: Prevertebral and paravertebral soft tissues are unremarkable. IMPRESSION: 1. No acute fracture. No traumatic subluxation. 2. No osseous encroachment of the spinal canal. No significant neural foraminal narrowing at any level.
--- NOTE | 2024-11-21 11:53 | CT_ITS ---
PROCEDURE INFORMATION: Exam: CT Head Without Contrast Exam date and time: 11/21/2024 12:08 PM Age: 74 years old Clinical indication: Pain; Headache; Additional info: ROTH TECHNIQUE: Imaging protocol: Computed tomography of the head without contrast. Radiation optimization: All CT scans at this facility use at least one of these dose optimization techniques: automated exposure control; mA and/or kV adjustment per patient size (includes targeted exams where dose is matched to clinical indication); or iterative reconstruction. COMPARISON: CT HEAD/BRAIN WO CON 09/26/2021 12:14 PM FINDINGS: Brain: There is a dense, extra-axial lesion centered in the right tentorial leaflet. Intralesional calcifications noted. The lesion measures 2.2 x 2.9 cm, previously 2.2 x 2.6 cm. Halo vasogenic edema and CSF cleft are unchanged. There is additional lesion with similar characteristics in the left frontal extra-axial region measuring 1.4 x 0.7 cm. Region of encephalomalacia/gliosis in the left frontoparietal region are unchanged. There is a surgical clip in the left insular region. There is no evidence of acute intracranial hemorrhage or extra-axial collection. There are scattered hypodensities in the periventricular and subcortical white matter. The appearance is nonspecific, but most likely represents chronic small vessel disease in a person of this age Cerebral ventricles: The ventricles, sulci and cisterns are normal in size and configuration for patient's age. No hydrocephalus or midline structure shift Pituitary gland and sella: Sellar/parasellar structures, craniocervical junction and orbits are unremarkable Paranasal sinuses: Visualized sinuses are unremarkable. No fluid levels. Mastoid air cells: Visualized mastoid air cells are well aerated. Bones: No calvarial fracture. Old postsurgical changes from left lateral craniotomy Soft tissues: Unremarkable. IMPRESSION: 1. No acute intracranial abnormality. No calvarial fracture. 2. No substantial change in known extra-axial lesions likely meningiomas. Unchanged left frontoparietal encephalomalacia.
[2024-11-21 12:01] LABS: Basophils % 0.3 % (0.1-2.0); Eosinophils # 0.2 K/mm3 (0.0-0.4); Eosinophils % 2.2 % (0.1-12.0); Hematocrit 43.8 % (37.0-47.0); Hemoglobin 14.1 g/dL (12.2-16.2); Lymphocytes # 2.2 K/mm3 (0.7-4.5); Lymphocytes % 29.4 % (10-50); Mean Corpuscular HGB Conc 32.2 g/dL (31.8-35.4); Mean Corpuscular Hemoglobin 29.6 pg (27.0-31.2); Mean Platelet Volume 9.7 fl (7.4-10.4); Monocytes # 0.6 K/mm3 (0.1-1.0); Monocytes % 8.5 % (1.7-9.3); Neutrophils # 4.4 K/mm3 (1.8-7.8); Neutrophils % 59.3 % (37.0-80.0); Platelet Count 319 K/mm3 (142-424); Red Blood Count 4.76 M/mm3 (4.20-5.40); Red Cell Distribution Width 13.5 % (11.5-17.5); White Blood Count 7.4 K/mm3 (4.8-10.8)
[2024-11-21 12:20] LABS: Albumin Level 4.5 g/dl (3.5-5.0); Chloride 104 mmol/L (98-107); Sodium 139 mmol/L (136-145)
[2024-11-21] MEDS: LACTATED RINGERS 1000ML 500 ML 999 ML IV (12:20)
[2024-11-21] MEDS: METOCLOPRAMIDE HCL 10MG/2ML VIAL 10 MG IVP (12:20)
[2024-11-21] MEDS: KETOROLAC 30MG/ML VIAL 15 MG IV (12:20)
[2024-11-21 12:21] LABS: Potassium 4.6 mmoL/L (3.5-5.1)
[2024-11-21] MEDS: MAGNESIUM SULFATE IN WATER 2 GM/50 ML PIGGYBACK IV (12:21)
[2024-11-21] MEDS: diphenhydrAMINE 50MG/ML VIAL 25 MG IV (12:21)
[2024-11-21 12:23] LABS: Alanine Aminotransferase 31 U/L (12-78); Albumin/Globulin Ratio 1.8 (1.1-1.8); Alkaline Phosphatase 79 U/L (38-126); Anion Gap 13.6 mEq/L (5-15); Aspartate Amino Transferase 28 U/L (14-36); Bilirubin,Total 0.5 mg/dl (0.2-1.3); Blood Urea Nitrogen 14 mg/dl (7-17); Carbon Dioxide 26 mmol/L (22.0-30.0); Creatinine Clearance Estimated 54 mL/min (50-200); Estimated Glomerular Filt Rate 70 ml/min (>60); GFR (African American) 85 ML/MIN (>60); Globulin 2.5 g/dL (1.3-3.2)
[2024-11-21 12:24] LABS: Calcium 9.7 mg/dl (8.4-10.2); Glucose 117 mg/dl (74-100); Magnesium 1.9 mg/dl (1.6-2.3)
[2024-11-21 12:29] LABS: C-Reactive Protein 0.7 mg/L (0-4)
--- NOTE | 2024-11-21 12:39 | PC.NURSE ---
pt brief was changed and diana placed on pt at this time states no other needs at this time and daughter at bs
[2024-11-21 12:46] LABS: Erythrocyte Sedimentation Rate 23 mm/hr (0-30)
[2024-11-21] MEDS: LIDOCAINE 1% W/EPI 1:100,000 20ML VIAL 10 ML SQ (13:33)
--- NOTE | 2024-11-21 13:35 | PC.NURSE ---
assisted with bedside procedure for nerve block on pt
[2024-11-21 13:36] LABS: HIV Combo NEGATIVE (Negative)
[2024-11-21 13:44] LABS: Hepatitis C Ab Qual. W/ RFX NEGATIVE (Negative)
[2024-11-21] MEDS: ACETAMINOPHEN 500MG TAB 1000 MG PO (14:11)
[2024-11-21] MEDS: MORPHINE 4MG/ML SYRINGE 4 MG IV (14:11)
[2024-11-21] MEDS: LIDOCAINE 5% TRANSDERMAL PATCH 1 EACH TD (14:11)
[2024-11-21] MEDS: GABAPENTIN 100MG CAPSULE 200 MG PO (14:11)
--- NOTE | 2024-11-21 14:13 | CT_ITS ---
PROCEDURE INFORMATION: Exam: CTA Head With Contrast, Arteriography Exam date and time: 11/21/2024 3:14 PM Clinical indication: Pain; Headache; Additional info: Intractable head ache TECHNIQUE: Imaging protocol: Computed tomographic angiography of the head with contrast. Exam focused on the arteries. 3D rendering (Not supervised by radiologist): MIP and/or 3D reconstructed images were created by the technologist. COMPARISON: No relevant prior studies available. FINDINGS: ANTERIOR CIRCULATION: Right internal carotid artery: Intracranial segment is patent with no significant stenosis. No aneurysm. Right middle cerebral artery: No occlusion or significant stenosis. No aneurysm. Right anterior cerebral artery: No occlusion or significant stenosis. No aneurysm. Left internal carotid artery: Intracranial segment is patent with no significant stenosis. No aneurysm. Left middle cerebral artery: No occlusion or significant stenosis. No aneurysm. Left anterior cerebral artery: No occlusion or significant stenosis. No aneurysm. POSTERIOR CIRCULATION: Right vertebral artery: Diminutive V4 segment of the right vertebral artery grossly unchanged in caliber when compared with 09/26/2021 CT and likely congenital. No abrupt vessel cut-off. Left vertebral artery: Diminutive V4 segment of the left vertebral artery grossly unchanged in caliber when compared with 09/26/2021 CT and likely congenital. No abrupt vessel cut-off. 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 No other occlusion or significant stenosis in the basilar artery. No aneurysm. Right posterior cerebral artery: origin of the right posterior cerebral artery, normal variant anatomy. No occlusion or significant stenosis. No aneurysm. Left posterior cerebral artery: No occlusion or significant stenosis. No aneurysm. Left posterior communicating artery: Left posterior communicating artery supplies both the left posterior cerebral artery and the tip of the basilar artery, including the bilateral superior cerebellar artery branches. Brain: Dural-based 2.5 cm enhancing mass along the right tentorial leaflet compatible with meningioma, unchanged in size from 09/26/[address] A 1.5 cm dural-based lesion overlying the left frontal lobe is also stable. Cerebral ventricles: No hydrocephalus. Bones/joints: No evidence of acute calvarial or skull base fracture. Soft tissues: Unremarkable. IMPRESSION: 1. No vascular territory arterial occlusion, significant arterial stenosis, or aneurysm in the intracranial cerebral arteries. 2. 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 3. Left posterior communicating artery supplies both the left posterior cerebral artery and the tip of the basilar artery, including the bilateral superior cerebellar artery branches. 4. Two dural-based lesions compatible with meningiomas are stable in size since at least 09/26/2021. PROCEDURE INFORMATION: Exam: CTA Head With Contrast, Venography Exam date and time: 11/21/2024 3:14 PM Age: 74 years old Clinical indication: Pain; Headache; Additional info: Intractable head ache TECHNIQUE: Imaging protocol: Computed tomography angiography of the head with contrast. Exam focused on the veins. 3D rendering (Not supervised by radiologist): MIP and/or 3D reconstructed images were created by the technologist. Radiation optimization: All CT scans at this facility use at least one of these dose optimization techniques: automated exposure control; mA and/or kV adjustment per patient size (includes targeted exams where dose is matched to clinical indication); or iterative reconstruction. Contrast material: ISOVUE 370; Contrast volume: 100 ml; Contrast route: INTRAVENOUS (IV); COMPARISON: 1. CT HEAD/BRAIN WO CON 11/21/2024 12:[address] HEAD/BRAIN WO CON 09/26/2021 12:14 PM FINDINGS: Superior sagittal sinus: Patent and avidly enhancing on both arterial and venous phase imaging. Straight sinus: Patent and avidly enhancing on both arterial and venous phase imaging. Transverse sinuses: Patent and avidly enhancing on both arterial and venous phase imaging. Sigmoid sinuses: Patent and avidly enhancing on both arterial and venous phase imaging. Internal jugular veins: Moderate to severe narrowing of the bilateral internal jugular veins near the skull base due to compression between the lateral masses of C1 and temporal styloid processes, as well as traversing tortuous internal and external carotid arteries. Robust condylar emissary veins and numerous venous varices at the occiput consistent with chronic venous collateralization. Impression new. 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 Findings can be associated with intracranial venous congestion. Veins: Numerous small tortuous venous varices are also present along the anterior skull base. Dural venous sinuses are patent. Brain: Dural-based 2.5 cm enhancing mass along the right tentorial leaflet compatible with meningioma, unchanged in size from 09/26/[address] A 1.5 cm dural-based lesion overlying the left frontal lobe is also stable. Cerebral ventricles: No ventriculomegaly. Bones/joints: No evidence of acute calvarial or skull base fracture. Soft tissues: Unremarkable. IMPRESSION: 1. No evidence of dural venous sinus thrombosis. 2. Moderate to severe narrowing of the bilateral internal jugular veins near the skull base due to extrinsic compression by anatomic structures with collateral venous drainage via robust and tortuous condylar emissary veins. Findings can be seen with intracranial venous congestion. 3. Dural venous sinuses avidly enhance on both arterial and venous phase imaging. Findings are suggestive of intracranial arteriovenous shunting or fistula, although not definitively diagnostic. Fluoroscopic angiography could better evaluate. 4. Two dural-based lesions compatible with meningiomas are stable in size since at least 09/26/2021.
[2024-11-21] MEDS: BACLOFEN 10MG TABLET 10 MG PO (14:38)
--- NOTE | 2024-11-21 15:02 | CT_ITS ---
PROCEDURE INFORMATION: Exam: CT Maxillofacial With Contrast Exam date and time: 11/21/2024 3:14 PM Age: 74 years old Clinical indication: Pain; Headache; Additional info: ROTH, neck pain TECHNIQUE: Imaging protocol: Computed tomography of the face with contrast. Radiation optimization: All CT scans at this facility use at least one of these dose optimization techniques: automated exposure control; mA and/or kV adjustment per patient size (includes targeted exams where dose is matched to clinical indication); or iterative reconstruction. COMPARISON: CT HEAD/BRAIN WO CON 11/21/2024 12:08 PM FINDINGS: Paranasal sinuses: No air-fluid levels. Orbital cavities: Bilateral lens replacement incidentally noted. Globes and orbital structures are otherwise unremarkable. Bones: No evidence of acute fracture. Bilateral temporomandibular joints are congruent. Pterygoid plates and lamina papyracea are intact. Soft tissues: Unremarkable. IMPRESSION: No acute findings. PROCEDURE INFORMATION: Exam: CTA Neck With Contrast Exam date and time: 11/21/2024 3:14 PM Age: 74 years old Clinical indication: Pain; Headache; Additional info: ROTH, neck pain TECHNIQUE: Imaging protocol: Computed tomographic angiography of the neck with contrast. Exam focused on the cervical segments of the vasculature. 3D rendering (Not supervised by radiologist): MIP and/or 3D reconstructed images were created by the technologist. Radiation optimization: All CT scans at this facility use at least one of these dose optimization techniques: automated exposure control; mA and/or kV adjustment per patient size (includes targeted exams where dose is matched to clinical indication); or iterative reconstruction. Contrast material: ISOVUE 370; Contrast volume: 100 ml; Contrast route: INTRAVENOUS (IV); COMPARISON: CT CERVICAL SPINE WO CON 11/21/2024 12:12 PM FINDINGS: Right common carotid artery: No stenosis. No dissection or occlusion. Right internal carotid artery: No stenosis of the extracranial segment. No dissection or occlusion. Right external carotid artery: No occlusion or stenosis of the origin. Left common carotid artery: No stenosis. No dissection or occlusion. Left internal carotid artery: No stenosis of the extra-cranial segment. No dissection or occlusion. Left external carotid artery: No occlusion or stenosis of the origin. Right vertebral artery: Dominant right vertebral artery, normal variant. No evidence of dissection, occlusion or significant stenosis. Left vertebral artery: No stenosis. No dissection or occlusion. Soft tissues: Unremarkable. Bones/joints: No acute osseous abnormality. 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 IMPRESSION: 1. No evidence of occlusion, significant stenosis, dissection or aneurysm in the extracranial cerebral arteries. 2. 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 3. Concurrent head CTA reported separately. REFERENCES: NASCET CRITERIA. The degree of stenosis in the cervical segment of the internal carotid artery is based on NASCET criteria. Normal is no stenosis. Mild is less than 50% stenosis. Moderate is 50-69% stenosis. Severe is 70% to 99% stenosis. Total occlusion is no detectable patent lumen.
--- NOTE | 2024-11-21 17:59 | PC.NURSE ---
images sending to per
--- NOTE | 2024-11-21 18:02 | PC.NURSE ---
robinson baldwin for consult with neuro surgery per at this time
== END 2024-11-21 20:36 | disposition short-term general hospital (02) ==
PROVIDERS: Student in an Organized Health Care Education/Training Program; Emergency Provider Emergency Medicine; PCP Internal Medicine Adolescent Medicine
DX: I65.1 Occlusion and stenosis of basilar artery (principal); R93.0 Abnormal findings on diagnostic imaging of skull and head, not elsewhere classified; R51.9 Headache, unspecified
CPT/HCPCS: 70450; 70496; 70498; 72125; 80053; 83735; 85025; 85651; 86140; 86803; 87389; 96361; 96365; 96374; 96375; 99285; J1200; J1885; J2270; J2765; J3475; J7120

== ENCOUNTER 2025-01-03 09:11 | Observation (INO) | payer MEDICARE, MEDICAID, SELFPAY ==
[2025-01-03] VITALS (16 sets, daily range): BP systolic 110–169; BP diastolic 49–103; PULSE 78–108; RESP 14–26; TEMP 36.4–36.9; O2SAT 91–98; BMI 30.2
--- NOTE | 2025-01-03 09:15 | PC.NURSE ---
DR RUDOLPH AT BEDSIDE
--- NOTE | 2025-01-03 09:24 | CT_ITS ---
FINAL REPORT TECHNIQUE: NASCET technique utilized for stenosis evaluation. CLINICAL HISTORY: right side weakness, fall COMPARISON: 11/21/2024 FINDINGS: RIGHT CAROTID: There is mild vascular calcification of the right carotid bifurcation. Bifurcations are otherwise widely patent. No significant stenosis is seen of the cervical common or internal carotid artery. LEFT CAROTID: No significant stenosis seen of the cervical common or internal carotid artery. VERTEBRALS: The vertebrals are patent. No significant stenosis is present. IMPRESSION: No significant arterial abnormality. Reviewed, Interpreted and Dictated by Edu Porter MD Transcribed by Najma Carrasco Authenticated and [facility]
--- NOTE | 2025-01-03 09:24 | CT_ITS ---
FINAL REPORT TECHNIQUE: Pre-and postcontrast images of the abdomen were performed by computed tomography. Extensive 3-D reconstruction images were performed. A CTA was performed. This study was performed with techniques to keep radiation doses as low as reasonably achievable (ALARA). Individualized dose reduction techniques using automated exposure control or adjustment of mA and/or kV according to the patient''s size were employed. CLINICAL HISTORY: fall FINDINGS: ABDOMEN AND PELVIS: The lung bases are clear. There is mild fatty infiltration of the liver. Patient is status postcholecystectomy. A nodule is seen in the left adrenal gland measuring 12 mm likely due to adenoma. The remaining solid abdominal organs are without acute abnormality. The appendix is normal. Cysts are seen in the bilateral adnexa measuring 4.1 cm on the left and up to 2.4 cm on the right likely arising from the ovaries.There is mild bilateral hip joint space narrowing. Hypertrophic changes are seen at the acetabular margins. There is lumbar scoliosis of 20 degrees convex to the left. CTA: The abdominal aorta is proper caliber. The celiac axis and SMA are patent. Origin of the ALONSO is not well-visualized. There are dual right and single left renal arteries which are patent. There is a retroaortic left renal vein noted. There is no evidence of dissection. IMPRESSION: No evidence of dissection or solid organ injury. Reviewed, Interpreted and Dictated by Edu Porter MD Transcribed by Ciara Andrew Authenticated and [facility]
--- NOTE | 2025-01-03 09:24 | CT_ITS ---
FINAL REPORT TECHNIQUE: Axial CT images were performed through the head. Coronal reformatted images were submitted. This study was performed with techniques to keep radiation doses as low as reasonably achievable (ALARA). Individualized dose reduction techniques using automated exposure control or adjustment of mA and/or kV according to the patient's size were employed. CLINICAL HISTORY: fall, hx of brain mass COMPARISON: 11/21/2024 FINDINGS: There is rather extensive encephalomalacia in the left hemisphere, predominantly the left parietal lobe. There is streak artifact arising from surgical clips within the region of the encephalomalacia, stable. There is a partially calcified extra-axial left frontal mass measuring 1.7 x 1.0 cm, stable. An extra-axial mass arising from the superior most right tentorium measuring 2.4 x 1.9 cm is stable. Findings are consistent with meningiomas. There is no definite acute hemorrhage, mass effect, or edema. The sinuses are well aerated. IMPRESSION: No acute intracranial process. Stable encephalomalacia. Stable meningiomas. Reviewed, Interpreted and Dictated by Edu Porter MD Transcribed by Najma Carrasco Authenticated and [facility]
--- NOTE | 2025-01-03 09:24 | CT_ITS ---
FINAL REPORT TECHNIQUE: thin section axial CT with IV contrast supplemented with multiplanar 3-D reconstruction of the head. This study was performed with techniques to keep radiation doses as low as reasonably achievable, (ALARA)individualized dose reduction techniques using automated exposure control or adjustment of mA and/or kV according to the patient's size were employed. CLINICAL HISTORY: fall, hx of brain mass COMPARISON: 11/21/2024 FINDINGS: Again noted is segmental occlusion of the distal basilar artery measuring 3 mm in length, similar in appearance to the previous study. The mid and anterior cerebral arteries are widely patent. IMPRESSION: Segmental occlusion distal basilar artery, stable. No evidence of acute intracranial large vessel occlusion. Reviewed, Interpreted and Dictated by Edu Porter MD Transcribed by Najma Carrasco Authenticated and [facility]
--- NOTE | 2025-01-03 09:28 | [facility].EDGENADL ---
Discharge Plan Disposition Patient Disposition: Admitted Clinical Impressions Clinical Impression: Weakness, Unable to care for self Discharge ED Provider: Franci Jaffe General Adult HPI <Home Billings MD - Last Filed: 01/03/25 22:50> General Chief complaint: Weakness Stated complaint: Fall Time Seen by Provider: 01/03/25 09:15 Mode of Arrival: EMS Source of Information: Patient, Relative and EMS Description of Symptoms (Recalled from ER Triage Doc. by RN): PT BROUGHT VIA EMS FOR A FALL FROM STANDING THIS AM. PT HAD SIMILAR FALL LAST WEEK. PT HAS RECENTLY STARTED GABAPENTIN FOR BRAIN TUMORS HX OF RIGHT SIDED PARALYSIS. PT REPORTS LEFT LEG WEAK. PT REPORTS CHRONIC PAIN AND WEAKNESS History of Present Illness HPI narrative: Lenore Hood is a 74y female with a past medical history for malignant brain tumor status post resection as a child In the 1960s complicated by right hemiparalysis but still able to ambulate with a 4 point cane who presents to the emergency department after multiple falls. Patient brought by EMS. Patient's daughter, who is her POA, arrived shortly after and provide additional details of the history. Reports that 1.5 weeks ago, patient had a fall from standing and sustained bruising to her right shoulder and her right flank. They note that she was at approximately 1.5 to 2 weeks ago and was diagnosed with brain tumor and was put on gabapentin for nerve pain, however her symptoms have worsened since then, describing weakness and falls. They state that today she was transitioning from the bed to the bedside commode when she fell. She was with home health at the time who recommended she come to the emergency department. Daughter notes that she cares for her on the weekends but home health is there 5 days a week. They report that she is supposed to follow-up with [facility] but has not set up an appointment yet. Daughter feels that she is at her baseline mental status today. Patient is complaining of pain all over. Daughter does note that she is been complaining of pain in her left knee recently. Related Data Home Medications ?Medication ?Instructions ?Recorded ?Confirmed baclofen 10 mg tablet 10 mg PO TIDP PRN Muscle Spasm 07/27/18 01/03/25 omeprazole 20 mg capsule,delayed 20 mg PO BID acid reflux 07/27/18 01/03/25 release alendronate 70 mg tablet 70 mg PO WEEKLY 11/15/20 01/03/25 vlujrzre-qnby-ohlp 8 mg-folic 400 1 each PO DAILY 09/26/21 01/03/25 mcg-K 50 mcg-lutein 300 mcg tablet gabapentin 100 mg capsule 100 mg PO TID 12/10/21 01/03/25 atorvastatin 80 mg tablet 80 mg PO HS 01/03/25 01/03/25 celecoxib 100 mg capsule 100 mg PO BID 01/03/25 01/03/25 famotidine 20 mg tablet 20 mg PO BID 01/03/25 01/03/25 hydrocodone 7.5 mg-acetaminophen 1 tab PO Q8HP PRN Severe Pain 01/03/25 01/03/25 325 mg tablet (Scale Score 7-10) Previous Rx's ?Medication ?Instructions ?Recorded vibegron 75 mg tablet (Gemtesa) 75 mg PO DAILY #30 tabs 12/25/21 Allergies Allergy/AdvReac Type Severity Reaction Status Date / Time sulfamethoxazole Allergy Unknown Unknown Verified 01/03/25 12:06 allergy reaction [facility] <Home Billings MD - Last Filed: 01/03/25 22:50> [facility] Disclaimer: The information contained in this section may have been updated after the patient was seen, as this information can be updated by other users. Medical History Osteoarthritis of left knee Family History (Updated 01/03/25 @ 17:01 by Shiela Giles RN) Other Cancer Social History (Updated 01/03/25 @ 17:01 by Shiela Giles RN) Smoking Status: Never smoker second hand exposure: Yes alcohol intake: never substance use type: denies use current occupational status: disabled Travel in the last 8 weeks?: None household members: none housing: [facility] current occupational exposures/hazards: No caffeine: Yes Have you lived/traveled outside [place] in past 30 days?: No Contact w/someone who lives/traveled outside US past 30 days?: No Exposure to someone with infectious disease in past 14 days?: No Do you have a fever (greater than 100.4 F or 38 C)?: No Have you tested positive for COVID-19?: No Exposed to someone with COVID-19 in past 14 days?: No Do you have a sore throat?: No Do you have a cough?: No Do you have any weakness?: No Do you have any diarrhea?: No Are you experiencing any unusual bleeding?: No Do you have any muscle aches/pain?: No Do you have any abdominal pain?: No Are you experiencing loss of taste or smell?: No Other Medical History Have you received the Flu Vaccine for this season: No Have you received the Pneumonia Vaccine: Yes <Home Billings MD - Last Filed: 01/03/25 22:50> ROS Obtained: Yes Systems reviewed as appropriate & no additional complaints except as documented Physical Exam <Home Billings MD - Last Filed: 01/03/25 22:50> General General appearance: alert and in no apparent distress Head Head exam: atraumatic Eye Eye exam: Present normal appearance ENT ENT exam: Present normal external ear exam Neck Neck exam: Present full ROM Chest Chest inspection: Present symmetric chest wall rise Respiratory Respiratory exam: Present normal lung sounds bilaterally; Absent respiratory distress, wheezes or stridor Cardiovascular Cardiovascular exam: Present regular rate and normal rhythm Abdominal Exam Abdominal exam: Present soft; Absent tenderness or guarding Comment: Bruising in multiple stages of healing to the right flank and right lateral ribs Extremities Exam Extremities exam: Present normal inspection and other (Mild swelling to the left knee without tenderness or skin lesion) Back Exam Back exam: Present normal inspection Neurological Exam Neurological exam: Present alert, oriented X3 and other (Following commands appropriately. Hard of hearing. Occasionally has difficulty with word finding. This is of the right upper extremity. Able to lift right lower extremity off the bed. 5 out of 5 strength in left upper and left lower extremities cranial nerves II through XII grossly intact.) Psychiatric Psychiatric exam: Present normal affect Skin Skin exam: Present warm, dry and other (Healing bruise to the right shoulder) Medical Decision Making <Home Billings MD - Last Filed: 01/03/25 22:50> Medical Records Screening: Per USPSTF and CDC recommendations, given the prevalence of disease in our region, it is our hospital?s policy to screen for HIV and viral Hepatitis for all patients aged 18 and over and those with ongoing risk factors. [place] Inquiry Pt receiving controlled substance: No Vital Signs: 01/03/25 09:17 01/03/25 09:30 01/03/25 10:00 Temperature 97.6 F Temperature Source Oral Pulse Rate 92 H 89 Pulse Rate [Apical] 98 H Respiratory Rate 18 22 26 H Blood Pressure 169/80 H 154/83 H Blood Pressure [Left Arm] 169/84 H Blood Pressure Mean [Left Arm] 112 Blood Pressure Source [Left Arm] Automatic Cuff Blood Pressure Position [Left Arm] Sitting 02 Sat by Pulse Oximetry 95 94 L 93 L Oxygen Delivery Method Room Air Room Air Room Air 01/03/25 11:00 01/03/25 11:30 01/03/25 12:01 Temperature Temperature Source Pulse Rate 95 H 89 91 H Pulse Rate [Apical] Respiratory Rate 26 H 17 22 Blood Pressure 159/81 H 140/77 161/91 H Blood Pressure [Left Arm] Blood Pressure Mean [Left Arm] Blood Pressure Source [Left Arm] Blood Pressure Position [Left Arm] 02 Sat by Pulse Oximetry 94 L 93 L 95 Oxygen Delivery Method Room Air Room Air 01/03/25 12:49 01/03/25 13:00 01/03/25 13:30 Temperature Temperature Source Pulse Rate 92 H 91 H 104 H Pulse Rate [Apical] Respiratory Rate 14 26 H 25 H Blood Pressure 131/65 154/103 H 140/79 Blood Pressure [Left Arm] Blood Pressure Mean [Left Arm] Blood Pressure Source [Left Arm] Blood Pressure Position [Left Arm] 02 Sat by Pulse Oximetry Oxygen Delivery Method Room Air Room Air Room Air 01/03/25 14:30 01/03/25 15:00 01/03/25 15:30 Temperature Temperature Source Pulse Rate 104 H 99 H 98 H Pulse Rate [Apical] Respiratory Rate 18 17 16 Blood Pressure 139/72 151/86 H 139/63 Blood Pressure [Left Arm] Blood Pressure Mean [Left Arm] Blood Pressure Source [Left Arm] Blood Pressure Position [Left Arm] 02 Sat by Pulse Oximetry 95 94 L 94 L Oxygen Delivery Method Room Air Room Air Room Air 01/03/25 16:00 01/03/25 16:01 01/03/25 16:26 Temperature 98.5 F Temperature Source Oral Pulse Rate 101 H 78 Pulse Rate [Apical] Respiratory Rate 14 18 Blood Pressure 118/61 110/65 Blood Pressure [Left Arm] Blood Pressure Mean [Left Arm] Blood Pressure Source [Left Arm] Blood Pressure Position [Left Arm] 02 Sat by Pulse Oximetry 93 L Oxygen Delivery Method Room Air Room Air Room Air Lab Data Lab Results 01/03/25 09:23: WBC 9.3, RBC 4.93, Hgb 14.4, Hct 45.4, MCV 92.1, MCH 29.2, MCHC 31.7 L, RDW 14.1, Plt Count 315, MPV 9.1, Neut % (Auto) 60.4, Lymph % (Auto) 28.8, [place] % (Auto) 7.8, Eos % (Auto) 2.0, Baso % (Auto) 0.4, Neut # (Auto) 5.6, Lymph # (Auto) 2.7, [place] # (Auto) 0.7, Eos # (Auto) 0.2, Baso # (Auto) 0.0, PT 9.8 L, INR 0.86 L, Sodium 138, Potassium 4.8, Chloride 107, Carbon Dioxide 28, Anion Gap 7.8, BUN 15, Creatinine 0.60, Estimated Creat Clear 59, Estimated GFR 98, Est GFR ( Amer) 119, Glucose 106 H, Calcium 9.3, Total Bilirubin 0.7, AST 36, ALT 37, Alkaline Phosphatase 101, Troponin I < 0.01, Total Protein 6.9, Albumin 4.2, Globulin 2.7, Albumin/Globulin Ratio 1.6, Lipase 89 01/03/25 09:39: VBG pH 7.41, VBG pCO2 40.6, VBG pO2 28.7, VBG HCO3 25.0, VBG Total CO2 26.3, VBG O2 Saturation 54.8, VBG Base Excess 0.4, VBG Lactic Acid 2.4 H, Urine Color Yellow, Urine Appearance Clear, Urine pH 7.5, Ur Specific [place] 1.015, Urine Protein Negative, Urine Glucose (UA) Negative, Urine Ketones Negative, Urine Blood Negative, Urine Nitrate Negative, Urine Bilirubin Negative, Urine Urobilinogen 0.2, Ur Leukocyte Esterase Trace, Urine RBC None, Urine WBC 10-20, Ur Squamous Epith Cells 10-20, Amorphous Sediment Trace, Urine Bacteria Trace 01/03/25 12:30: Troponin I < 0.01 01/03/25 09:23 01/03/25 09:23 Orders (Tests/Meds): ED MEDICATIONS Generic Name Dose Route Start Last Admin Trade Name Freq PRN Reason Stop Dose Admin Acetaminophen 650 mg 01/03/25 15:51 Acetaminophen 325mg Tab PO 02/02/25 15:50 Q4HP PRN Fever or Mild Pain (1-3) Hydrocodone Bitart/Acetaminophen 1 tab 01/03/25 20:16 Apap/Hydrocodone 325mg/7.5mg Tab PO 02/02/25 20:15 Q4HP PRN Severe Pain (7-10) Hydrocodone Bitart/Acetaminophen 1 tab 01/03/25 20:16 Hydrocodone 10mg/Apap 325mg Tab PO 02/02/25 20:15 Q4HP PRN Moderate Pain (4-6) Atorvastatin Calcium 80 mg 01/03/25 21:00 01/03/25 21:41 Atorvastatin 40mg Tablet PO 02/02/25 20:59 80 mg HS TAYLOR Administration Baclofen 10 mg 01/03/25 20:15 Baclofen 10mg Tablet PO 02/02/25 20:14 TIDP PRN Muscle Spasm Celecoxib 100 mg 01/03/25 21:00 01/03/25 21:41 Celecoxib 100mg Capsule PO 02/02/25 20:59 100 mg BID TAYLOR Administration Enoxaparin Sodium 40 mg 01/04/25 09:00 Enoxaparin 40mg/0.4ml Syringe SUBCUT 02/03/25 08:59 DAILY TAYLOR Famotidine 20 mg 01/03/25 21:00 01/03/25 21:41 Famotidine 20mg Tablet PO 02/02/25 20:59 20 mg BID TAYLOR Administration Gabapentin 100 mg 01/05/25 09:00 Gabapentin 100mg Capsule PO 01/05/25 09:01 ONCE ONE Non-Formulary Medication 75 mg 01/04/25 09:00 Vibegron [Gemtesa] PO 02/03/25 08:59 DAILY TAYLOR Non-Formulary Medication 70 mg 01/03/25 20:15 01/03/25 21:23 Alendronate PO 02/02/25 20:14 Not Given WEEKLY TAYLOR Ondansetron HCl 4 mg 01/03/25 15:51 Ondansetron 4mg/2ml Vial IV 02/02/25 15:50 Q8HP PRN Nausea Pantoprazole Sodium 40 mg 01/03/25 21:00 01/03/25 21:41 Pantoprazole 40mg Tablet PO 02/02/25 20:59 40 mg BID TAYLOR Administration Sodium Chloride 10 ml 01/03/25 10:33 01/03/25 10:35 Sodium Chloride 0.9% 10ml Syr (Rad Only) IV 02/02/25 10:32 10 ml NEEDED PRN Administration Maintain IV Site Discontinued Medications Generic Name Dose Route Start Last Admin Trade Name Lisa PRN Reason Stop Dose Admin Lactated Ringer's 500 mls @ 999 mls/hr 01/03/25 10:49 01/03/25 11:00 Lactated Ringer's 500ml IV 01/03/25 11:19 999 mls/hr .Q31M ONE Administration Iopamidol 160 ml 01/03/25 10:33 01/03/25 10:34 Iopamidol-370 (76%);100ml Bottle IV 01/03/25 10:34 160 ml ONCE ONE Administration Morphine Sulfate 2 mg 01/03/25 09:28 01/03/25 11:01 Morphine 2mg/Ml Syringe IV 01/03/25 09:29 2 mg ONCE ONE Administration Morphine Sulfate 4 mg 01/03/25 12:57 01/03/25 13:08 Morphine 4mg/Ml Syringe IV 01/03/25 12:58 4 mg ONCE ONE Administration Ondansetron HCl 4 mg 01/03/25 09:39 01/03/25 11:01 Ondansetron 4mg/2ml Vial IV 01/03/25 09:40 4 mg ONCE ONE Administration Sodium Chloride 100 ml 01/03/25 10:33 01/03/25 10:34 0.9 % Sodium Chloride 50 Ml Vial IV 01/03/25 10:34 100 ml ONCE ONE Administration ORDERS Category Date Time Status CT angio abdomen pelvis Stat Cat Scan 01/03/25 09:[address] angio chest PE protocol Stat Cat Scan 01/03/25 09:[address] angio head Stat Cat Scan 01/03/25 09:[address] angio neck Stat Cat Scan 01/03/25 09:[address] cervical spine wo con Stat Cat Scan 01/03/25 09:[address] head/brain wo con Stat Cat Scan 01/03/25 09:24 Completed Knee XR left 2 views [XR knee LT 2V] Stat Exams 01/03/25 09:32 Completed CBC w/Auto Diff [Complete Blood Count Auto Diff] Stat Lab 01/03/25 09:23 Completed CMP [Comprehensive Metabolic Panel] Stat Lab 01/03/25 09:23 Completed Lipase Stat Lab 01/03/25 09:23 Completed PT INR [Prothrombin Time INR] Stat Lab 01/03/25 09:23 Completed Troponin I Q3H Lab 01/03/25 12:30 Completed Troponin I Stat Lab 01/03/25 09:23 Completed UA [Urinalysis and Microscopic] Stat Lab 01/03/25 09:39 Completed Urine Culture Stat Micro 01/03/25 09:39 Received VBG [Venous Blood Gas] Stat RT 01/03/25 09:39 Completed ECG Data Tracing #1: I reviewed this ECG and interpreted as documented below: Medical Decision Narrative: Lenore Hood is a 74y female with a past medical history for malignant brain tumor status post resection as a child In the 1960s complicated by right hemiparalysis but still able to ambulate with a 4 point cane who presents to the emergency department after multiple falls. Patient brought by EMS. Patient's daughter, who is her POA, arrived shortly after and provide additional details of the history. Reports that 1.5 weeks ago, patient had a fall from standing and sustained bruising to her right shoulder and her right flank. They note that she was at approximately 1.5 to 2 weeks ago and was diagnosed with brain tumor and was put on gabapentin for nerve pain, however her symptoms have worsened since then, describing weakness and falls. They state that today she was transitioning from the bed to the bedside commode when she fell. She was with home health at the time who recommended she come to the emergency department. Daughter notes that she cares for her on the weekends but home health is there 5 days a week. They report that she is supposed to follow-up with [facility] but has not set up an appointment yet. Daughter feels that she is at her baseline mental status today and believes that her symptoms are likely related to her gabapentin. Patient is complaining of pain all over. Daughter does note that she is been complaining of pain in her left knee recently. On arrival, patient is hypertensive with blood pressure 169/84, borderline tachycardic with a heart rate of 98 bpm, breathing comfortably on room air with oxygen saturation 95% SpO2. Afebrile. Physical exam, stated above, revealed an overall well-appearing female in no distress. She has flaccid paralysis of the right upper extremity and weakness in the right lower extremity and decree sensation in the right lower extremity, however her daughter states that this is her baseline. 5 out of 5 strength and sensation to the left lower left upper extremity. Cranial nerves II through XII grossly intact. She is mentating appropriately and answering questions. She is hard of hearing. Occasionally she will have what appears to be word finding difficulty. Differential diagnosis includes, but is not limited to: Stroke, medication side effect, electrolyte derangement, hypoglycemia, UTI, cardiac arrhythmia, pulmonary embolism, physical deconditioning, among others. Workup in the emergency department included: CT head without contrast, CTA of the head and neck, CTA of the chest and abdomen to evaluate for any traumatic injuries. EKG, troponin, CBC, CMP, lipase, PT/INR, urinalysis. Patient symptoms are being treated with 2 mg of IV morphine as well as 4 mg of IV Zofran. CT imaging interpreted by me personally. No evidence of acute traumatic injuries within the chest, abdomen or pelvis. No dissections or large aneurysms or large vessel occlusions. 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 No UTI. Mildly elevated lactate. No leukocytosis, no anemia. INR mildly low at 0.86. pH normal at 7.41. Electrolytes within normal limits. No ETHAN. Bilirubin normal. Liver enzymes within normal limits. Troponin less than 0.01 x 2 On reassessment, daughter at the bedside is concerned about her health at home. She notes that she has home health that comes out during the day 5 days a week but on the weekend she is there during the day. There is nobody at home with her at night and she is worried that she is likely going to fall at night especially if she tries to get up and go to the bathroom. She does not feel comfortable with her going home. With her recent falls, will have PT/OT evaluate the patient for recommendations. Case management also to see the patient. Placement was placed into ED observation at 11:45 AM. PT/OT is recommending acute rehab for the patient and she and daughter are agreeable to this. Case management is currently working with her insurance to get her approved for rehab. <Franci Jaffe, DO - Last Filed: 01/03/25 20:38> Vital Signs: 01/03/25 09:17 01/03/25 09:30 01/03/25 10:00 Temperature 97.6 F Temperature Source Oral Pulse Rate 92 H 89 Pulse Rate [Apical] 98 H Respiratory Rate 18 22 26 H Blood Pressure 169/80 H 154/83 H Blood Pressure [Left Arm] 169/84 H Blood Pressure Mean [Left Arm] 112 Blood Pressure Source [Left Arm] Automatic Cuff Blood Pressure Position [Left Arm] Sitting 02 Sat by Pulse Oximetry 95 94 L 93 L Oxygen Delivery Method Room Air Room Air Room Air 01/03/25 11:00 01/03/25 11:30 01/03/25 12:01 Temperature Temperature Source Pulse Rate 95 H 89 91 H Pulse Rate [Apical] Respiratory Rate 26 H 17 22 Blood Pressure 159/81 H 140/77 161/91 H Blood Pressure [Left Arm] Blood Pressure Mean [Left Arm] Blood Pressure Source [Left Arm] Blood Pressure Position [Left Arm] 02 Sat by Pulse Oximetry 94 L 93 L 95 Oxygen Delivery Method Room Air Room Air 01/03/25 12:49 01/03/25 13:00 01/03/25 13:30 Temperature Temperature Source Pulse Rate 92 H 91 H 104 H Pulse Rate [Apical] Respiratory Rate 14 26 H 25 H Blood Pressure 131/65 154/103 H 140/79 Blood Pressure [Left Arm] Blood Pressure Mean [Left Arm] Blood Pressure Source [Left Arm] Blood Pressure Position [Left Arm] 02 Sat by Pulse Oximetry Oxygen Delivery Method Room Air Room Air Room Air 01/03/25 14:30 01/03/25 15:00 01/03/25 15:30 Temperature Temperature Source Pulse Rate 104 H 99 H 98 H Pulse Rate [Apical] Respiratory Rate 18 17 16 Blood Pressure 139/72 151/86 H 139/63 Blood Pressure [Left Arm] Blood Pressure Mean [Left Arm] Blood Pressure Source [Left Arm] Blood Pressure Position [Left Arm] 02 Sat by Pulse Oximetry 95 94 L 94 L Oxygen Delivery Method Room Air Room Air Room Air 01/03/25 16:00 01/03/25 16:01 01/03/25 16:26 Temperature 98.5 F Temperature Source Oral Pulse Rate 101 H 78 Pulse Rate [Apical] Respiratory Rate 14 18 Blood Pressure 118/61 110/65 Blood Pressure [Left Arm] Blood Pressure Mean [Left Arm] Blood Pressure Source [Left Arm] Blood Pressure Position [Left Arm] 02 Sat by Pulse Oximetry 93 L Oxygen Delivery Method Room Air Room Air Room Air Lab Data Lab Results 01/03/25 09:23: WBC 9.3, RBC 4.93, Hgb 14.4, Hct 45.4, MCV 92.1, MCH 29.2, MCHC 31.7 L, RDW 14.1, Plt Count 315, MPV 9.1, Neut % (Auto) 60.4, Lymph % (Auto) 28.8, [place] % (Auto) 7.8, Eos % (Auto) 2.0, Baso % (Auto) 0.4, Neut # (Auto) 5.6, Lymph # (Auto) 2.7, [place] # (Auto) 0.7, Eos # (Auto) 0.2, Baso # (Auto) 0.0, PT 9.8 L, INR 0.86 L, Sodium 138, Potassium 4.8, Chloride 107, Carbon Dioxide 28, Anion Gap 7.8, BUN 15, Creatinine 0.60, Estimated Creat Clear 59, Estimated GFR 98, Est GFR ( Amer) 119, Glucose 106 H, Calcium 9.3, Total Bilirubin 0.7, AST 36, ALT 37, Alkaline Phosphatase 101, Troponin I < 0.01, Total Protein 6.9, Albumin 4.2, Globulin 2.7, Albumin/Globulin Ratio 1.6, Lipase 89 01/03/25 09:39: VBG pH 7.41, VBG pCO2 40.6, VBG pO2 28.7, VBG HCO3 25.0, VBG Total CO2 26.3, VBG O2 Saturation 54.8, VBG Base Excess 0.4, VBG Lactic Acid 2.4 H, Urine Color Yellow, Urine Appearance Clear, Urine pH 7.5, Ur Specific [place] 1.015, Urine Protein Negative, Urine Glucose (UA) Negative, Urine Ketones Negative, Urine Blood Negative, Urine Nitrate Negative, Urine Bilirubin Negative, Urine Urobilinogen 0.2, Ur Leukocyte Esterase Trace, Urine RBC None, Urine WBC 10-20, Ur Squamous Epith Cells 10-20, Amorphous Sediment Trace, Urine Bacteria Trace 01/03/25 12:30: Troponin I < 0.01 Orders (Tests/Meds): ED MEDICATIONS Generic Name Dose Route Start Last Admin Trade Name Freq PRN Reason Stop Dose Admin Acetaminophen 650 mg 01/03/25 15:51 Acetaminophen 325mg Tab PO 02/02/25 15:50 Q4HP PRN Fever or Mild Pain (1-3) Hydrocodone Bitart/Acetaminophen 1 tab 01/03/25 20:16 Apap/Hydrocodone 325mg/7.5mg Tab PO 02/02/25 20:15 Q4HP PRN Severe Pain (7-10) Hydrocodone Bitart/Acetaminophen 1 tab 01/03/25 20:16 Hydrocodone 10mg/Apap 325mg Tab PO 02/02/25 20:15 Q4HP PRN Moderate Pain (4-6) Atorvastatin Calcium 80 mg 01/03/25 21:00 01/03/25 21:41 Atorvastatin 40mg Tablet PO 02/02/25 20:59 80 mg HS TAYLOR Administration Baclofen 10 mg 01/03/25 20:15 Baclofen 10mg Tablet PO 02/02/25 20:14 TIDP PRN Muscle Spasm Celecoxib 100 mg 01/03/25 21:00 01/03/25 21:41 Celecoxib 100mg Capsule PO 02/02/25 20:59 100 mg BID TAYLOR Administration Enoxaparin Sodium 40 mg 01/04/25 09:00 Enoxaparin 40mg/0.4ml Syringe SUBCUT 02/03/25 08:59 DAILY TAYLOR Famotidine 20 mg 01/03/25 21:00 01/03/25 21:41 Famotidine 20mg Tablet PO 02/02/25 20:59 20 mg BID TAYLOR Administration Gabapentin 100 mg 01/05/25 09:00 Gabapentin 100mg Capsule PO 01/05/25 09:01 ONCE ONE Non-Formulary Medication 75 mg 01/04/25 09:00 Vibegron [Gemtesa] PO 02/03/25 08:59 DAILY TAYLOR Non-Formulary Medication 70 mg 01/03/25 20:15 01/03/25 21:23 Alendronate PO 02/02/25 20:14 Not Given WEEKLY TAYLOR Ondansetron HCl 4 mg 01/03/25 15:51 Ondansetron 4mg/2ml Vial IV 02/02/25 15:50 Q8HP PRN Nausea Pantoprazole Sodium 40 mg 01/03/25 21:00 01/03/25 21:41 Pantoprazole 40mg Tablet PO 02/02/25 20:59 40 mg BID TAYLOR Administration Sodium Chloride 10 ml 01/03/25 10:33 01/03/25 10:35 Sodium Chloride 0.9% 10ml Syr (Rad Only) IV 02/02/25 10:32 10 ml NEEDED PRN Administration Maintain IV Site Discontinued Medications Generic Name Dose Route Start Last Admin Trade Name Lisa PRN Reason Stop Dose Admin Lactated Ringer's 500 mls @ 999 mls/hr 01/03/25 10:49 01/03/25 11:00 Lactated Ringer's 500ml IV 01/03/25 11:19 999 mls/hr .Q31M ONE Administration Iopamidol 160 ml 01/03/25 10:33 01/03/25 10:34 Iopamidol-370 (76%);100ml Bottle IV 01/03/25 10:34 160 ml ONCE ONE Administration Morphine Sulfate 2 mg 01/03/25 09:28 01/03/25 11:01 Morphine 2mg/Ml Syringe IV 01/03/25 09:29 2 mg ONCE ONE Administration Morphine Sulfate 4 mg 01/03/25 12:57 01/03/25 13:08 Morphine 4mg/Ml Syringe IV 01/03/25 12:58 4 mg ONCE ONE Administration Ondansetron HCl 4 mg 01/03/25 09:39 01/03/25 11:01 Ondansetron 4mg/2ml Vial IV 01/03/25 09:40 4 mg ONCE ONE Administration Sodium Chloride 100 ml 01/03/25 10:33 01/03/25 10:34 0.9 % Sodium Chloride 50 Ml Vial IV 01/03/25 10:34 100 ml ONCE ONE Administration ORDERS Category Date Time Status CT angio abdomen pelvis Stat Cat Scan 01/03/25 09:[address] angio chest PE protocol Stat Cat Scan 01/03/25 09:[address] angio head Stat Cat Scan 01/03/25 09:[address] angio neck Stat Cat Scan 01/03/25 09:[address] cervical spine wo con Stat Cat Scan 01/03/25 09:[address] head/brain wo con Stat Cat Scan 01/03/25 09:24 Completed Knee XR left 2 views [XR knee LT 2V] Stat Exams 01/03/25 09:32 Completed CBC w/Auto Diff [Complete Blood Count Auto Diff] Stat Lab 01/03/25 09:23 Completed CMP [Comprehensive Metabolic Panel] Stat Lab 01/03/25 09:23 Completed Lipase Stat Lab 01/03/25 09:23 Completed PT INR [Prothrombin Time INR] Stat Lab 01/03/25 09:23 Completed Troponin I Q3H Lab 01/03/25 12:30 Completed Troponin I Stat Lab 01/03/25 09:23 Completed UA [Urinalysis and Microscopic] Stat Lab 01/03/25 09:39 Completed Urine Culture Stat Micro 01/03/25 09:39 Received VBG [Venous Blood Gas] Stat RT 01/03/25 09:39 Completed Medical Decision Narrative: Lenore Hood is a 74y female with a past medical history for malignant brain tumor status post resection as a child In the 1960s complicated by right hemiparalysis but still able to ambulate with a 4 point cane who presents to the emergency department after multiple falls. Patient brought by EMS. Patient's daughter, who is her POA, arrived shortly after and provide additional details of the history. Reports that 1.5 weeks ago, patient had a fall from standing and sustained bruising to her right shoulder and her right flank. They note that she was at approximately 1.5 to 2 weeks ago and was diagnosed with brain tumor and was put on gabapentin for nerve pain, however her symptoms have worsened since then, describing weakness and falls. They state that today she was transitioning from the bed to the bedside commode when she fell. She was with home health at the time who recommended she come to the emergency department. Daughter notes that she cares for her on the weekends but home health is there 5 days a week. They report that she is supposed to follow-up with [facility] but has not set up an appointment yet. Daughter feels that she is at her baseline mental status today and believes that her symptoms are likely related to her gabapentin. Patient is complaining of pain all over. Daughter does note that she is been complaining of pain in her left knee recently. On arrival, patient is hypertensive with blood pressure 169/84, borderline tachycardic with a heart rate of 98 bpm, breathing comfortably on room air with oxygen saturation 95% SpO2. Afebrile. Physical exam, stated above, revealed an overall well-appearing female in no distress. She has flaccid paralysis of the right upper extremity and weakness in the right lower extremity and decree sensation in the right lower extremity, however her daughter states that this is her baseline. 5 out of 5 strength and sensation to the left lower left upper extremity. Cranial nerves II through XII grossly intact. She is mentating appropriately and answering questions. She is hard of hearing. Occasionally she will have what appears to be word finding difficulty. Differential diagnosis includes, but is not limited to: Stroke, medication side effect, electrolyte derangement, hypoglycemia, UTI, cardiac arrhythmia, pulmonary embolism, physical deconditioning, among others. Workup in the emergency department included: CT head without contrast, CTA of the head and neck, CTA of the chest and abdomen to evaluate for any traumatic injuries. EKG, troponin, CBC, CMP, lipase, PT/INR, urinalysis. Patient symptoms are being treated with 2 mg of IV morphine as well as 4 mg of IV Zofran. CT imaging interpreted by me personally. No evidence of acute traumatic injuries within the chest, abdomen or pelvis. No dissections or large aneurysms or large vessel occlusions. 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 No UTI. Mildly elevated lactate. No leukocytosis, no anemia. INR mildly low at 0.86. pH normal at 7.41. Electrolytes within normal limits. No ETHAN. Bilirubin normal. Liver enzymes within normal limits. Troponin less than 0.01 x 2 On reassessment, daughter at the bedside is concerned about her health at home. She notes that she has home health that comes out during the day 5 days a week but on the weekend she is there during the day. There is nobody at home with her at night and she is worried that she is likely going to fall at night especially if she tries to get up and go to the bathroom. She does not feel comfortable with her going home. With her recent falls, will have PT/OT evaluate the patient for recommendations. Case management also to see the patient. Placement was placed into ED observation at 11:45 AM. PT/OT is recommending acute rehab for the patient and she and daughter are agreeable to this. Case management is currently working with her insurance to get her approved for rehab. DO Ld: I assumed care of the patient at 3 PM at time of departure previous provider. On my assessment, patient resting comfortably in no acute distress. Recommendations for acute rehab were made, however will case management was unable to find placement for the patient today. Given this and no safe disposition home, will admit the patient for functional decline. ED observation status ended at 1600 after 4 hours and 15 minutes in ED observation status Critical Care <Franci N Jaffe, DO - Last Filed: 01/03/25 20:38> Critical Care Time Critical Care Time: No
--- NOTE | 2025-01-03 09:30 | PC.NURSE ---
RESPIRATORY NOTIFIED OF VBG
--- NOTE | 2025-01-03 09:32 | XR_ITS ---
FINAL REPORT CLINICAL HISTORY: Fall, pain COMPARISON: 10/28/2022 FINDINGS: LEFT KNEE 2 views demonstrate no acute fracture or dislocation. There are mild hypertrophic changes of osteoarthritis at the medial and lateral joint margin. There are small osteophytes along the undersurface of the patella. There is a small to moderate joint effusion. No acute soft tissue abnormality is seen. IMPRESSION: No acute fracture or dislocation. Mild to moderate osteoarthritis, which appears slightly progressed since the prior 01/11/2023. Reviewed, Interpreted and Dictated by Edu Porter MD Transcribed by Radha Ann Authenticated and [facility]
--- NOTE | 2025-01-03 09:33 | CT_ITS ---
FINAL REPORT TECHNIQUE: Axial images were obtained of the cervical spine by computed tomography. Coronal and sagittal reconstruction process performed. This study was performed with techniques to keep radiation doses as low as reasonably achievable (ALARA). Individualized dose reduction techniques using automated exposure control or adjustment of mA and/or kV according to the patient''s size were employed. CLINICAL HISTORY: fall, pain COMPARISON: 11/21/2024 FINDINGS: Cervical vertebrae show normal height. Disc spaces are fairly well-preserved. There is minimal spondylolisthesis of C5 on C6. Moderate facet sclerosis is noted in the lower cervical spine. 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 IMPRESSION: No acute fracture. Reviewed, Interpreted and Dictated by Edu Porter MD Transcribed by Najma Carrasco Authenticated and [facility]
--- NOTE | 2025-01-03 09:35 | CT_ITS ---
FINAL REPORT TECHNIQUE: The patient was injected with IV contrast. Axial images were obtained through the chest in a PE protocol. 3-D reconstruction images were also performed. Individualized dose reduction techniques using automated exposure control or adjustment of the MA and/or KV according to patient's size were employed. CLINICAL HISTORY: fall, right sided weakness, COMPARISON: 02/19/2021 FINDINGS: Mediastinal vasculature is adequately opacified. No pulmonary artery filling defects are identified to suggest PE. There is no aortic dissection. There are few small scattered lymph nodes. The distal trachea and proximal mainstem bronchi appear to be significantly narrowed, well-seen on images 42 through 51 of series 5. 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 The heart size is normal. There is no pericardial or pleural effusion. Patchy groundglass opacity bilaterally is probably edema or acute pneumonitis. Density at the right lower lobe measuring 1.4 x 1.0 cm on image 59 of series 5 appears to surround the right lower lobe pulmonary vasculature. Limited images of the upper abdomen demonstrate no acute findings. IMPRESSION: No pulmonary embolus. Right lower lobe density. 3-month follow-up CT scan per Fleischner criteria. 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 Pulmonary evaluation highly recommended. Reviewed, Interpreted and Dictated by Edu Porter MD Transcribed by Najma Carrasco Authenticated and [facility]
--- NOTE | 2025-01-03 09:38 | PC.NURSE ---
PT PLACED ON BEDPAN
[2025-01-03 09:40] LABS: Basophils % 0.4 % (0.1-2.0); Eosinophils # 0.2 Kmm3 (0.0-0.4); Hematocrit 45.4 % (37.0-47.0); Hemoglobin 14.4 g/dL (12.2-16.2); Immature Granulocytes # 0.06 10^3uL; Immature Granulocytes % 0.6 %; Lymphocytes # 2.7 K/mm3 (0.7-4.5); Lymphocytes % 28.8 % (10-50); Mean Corpuscular HGB Conc 31.7 g/dL (31.8-35.4); Mean Corpuscular Hemoglobin 29.2 pg (27.0-31.2); Mean Corpuscular Volume 92.1 fl (81-99); Mean Platelet Volume 9.1 fl (7.4-10.4); Monocytes # 0.7 K/mm3 (0.1-1.0); Monocytes % 7.8 % (1.7-9.3); Neutrophils # 5.6 K/mm3 (1.8-7.8); Neutrophils % 60.4 % (37.0-80.0); Nucleated Red Blood Cells # 0 10^3/uL; Nucleated Red Blood Cells % 0 %; Platelet Count 315 K/mm3 (142-424); Red Blood Count 4.93 M/mm3 (4.20-5.40); Red Cell Distribution Width 14.1 % (11.5-17.5); Red Cell Distribution Width-SD 47.5 fL; White Blood Count 9.3 K/mm3 (4.8-10.8)
[2025-01-03 09:44] LABS: Microscopic, Urine URINE MICROSCOPIC (MICROSCOPIC)
[2025-01-03 09:45] LABS: VBG Base Excess 0.4 mmol/L (-2.4-2.3); VBG Oxygen Saturation 54.8 % (50-70); VBG PCO2 40.6 mmol/L (35-51); VBG PH 7.41 mmol/L (7.31-7.41); VBG PO2 28.7 mmol/L (28-40); VBG Total CO2 26.3 mmol/L (23-27)
[2025-01-03 09:45] LABS: Alanine Aminotransferase 37 U/L (12-78); Albumin Level 4.2 g/dl (3.5-5.0); Albumin/Globulin Ratio 1.6 (1.1-1.8); Alkaline Phosphatase 101 U/L (38-126); Anion Gap 7.8 mEq/L (5-15); Aspartate Amino Transferase 36 U/L (14-36); Bilirubin,Total 0.7 mg/dl (0.2-1.3); Blood Urea Nitrogen 15 mg/dl (7-17); Calcium 9.3 mg/dl (8.4-10.2); Carbon Dioxide 28 mmol/L (22.0-30.0); Chloride 107 mmol/L (98-107); Creatinine Clearance Estimated 59 mL/min (50-200); Estimated Glomerular Filt Rate 98 ml/min (>60); GFR (African American) 119 ML/MIN (>60); Globulin 2.7 g/dL (1.3-3.2); Glucose 106 mg/dl (74-100); Lipase 89 U/L (23-300); Potassium 4.8 mmoL/L (3.5-5.1); Sodium 138 mmol/L (136-145); Total Protein,Serum 6.9 g/dl (6.3-8.2)
[2025-01-03 09:46] LABS: Lactate Venous 2.4 mmol/L (0.4-2.0)
--- NOTE | 2025-01-03 09:46 | ECG_ITS ---
APPROVED REPORT Exam: Resting ECG HR:77 bpm ECG Measurements Heart Rate 77 AXES SC 159 P 58 QRSd 85 QRS 39 QT 365 T 84 QTc 397 Conclusion SINUS RHYTHM WITH OCCASIONAL VENTRICULAR PREMATURE COMPLEXES NONSPECIFIC T-WAVE ABNORMALITY BORDERLINE ECG UNCONFIRMED REPORT Electronically signed by : CHRISTA MUÑOZ, 01/04/2025 01:45:41
[2025-01-03 09:47] LABS: Appearance,Urine CLEAR (Clear); Bilirubin,Urine Negative (Negative); Blood, Urine Negative (Negative); Color,Urine YELLOW (Yellow); Glucose,Urine (UA) Negative (Negative); Ketones,Urine Negative (Negative); Leukocyte Esterase,Urine TRACE (Negative); Nitrate,Urine Negative (Negative); PH,Urine 7.5 (5.0-8.5); Protein,Urine Negative (Negative); Specific Gravity, Urine 1.015 (1.005-1.030); Urobilinogen,Urine 0.2 EU/dl (0.2)
[2025-01-03 09:57] LABS: Troponin I < 0.01 ng/ml (0.00-0.034)
[2025-01-03 09:59] LABS: INR 0.86 (0.9-1.1); Prothrombin Time 9.8 seconds (10.1-12.5)
[2025-01-03 10:15] LABS: Amorphous Sediment,Urine Trace /lpf; Bacteria,Urine Trace /lpf
--- NOTE | 2025-01-03 10:15 | PC.NURSE ---
PT TO CT
[2025-01-03] MEDS: IOPAMIDOL-370 (76%);100ML BOTTLE 160 ML IV (10:34)
[2025-01-03] MEDS: 0.9 % SODIUM CHLORIDE 50 ML VIAL 100 ML IV (10:34)
[2025-01-03] MEDS: SODIUM CHLORIDE 0.9% 10ML SYR (RAD ONLY) 10 ML IV (10:35)
[2025-01-03] MEDS: RINGERS SOLUTION,LACTATED 500 ML 999 ML IV (11:00)
[2025-01-03] MEDS: MORPHINE 2MG/ML SYRINGE 2 MG IV (11:01)
[2025-01-03] MEDS: ONDANSETRON 4MG/2ML VIAL 4 MG IV (11:01)
--- NOTE | 2025-01-03 11:56 | PC.NURSE ---
This RN rounds with patient. declines any needs at this time.
[2025-01-03] MEDS: MORPHINE 4MG/ML SYRINGE 4 MG IV (13:08)
--- NOTE | 2025-01-03 13:16 | PC.NURSE ---
Called Rehab and s/w [facility] to let them know of PT/OT
[2025-01-03 13:23] LABS: Troponin I < 0.01 ng/ml (0.00-0.034)
--- NOTE | 2025-01-03 13:43 | SW/DCPLANNER ---
Addendum entered by [facility] 01/04/25 12:49: Per [facility] patient is approved SNF level of care for today. I have updated MD and will update patient and daughter. Addendum entered by [facility] 01/04/25 08:10: [facility] can accept this patient and precert will be started today. I have called and updated patient's daughter. I will also update patient and MD. Addendum entered by [facility] 01/03/25 15:30: I have also left a voicemail for [facility] fast track placement. Addendum entered by [facility] 01/03/25 15:01: Patient is now agreeable to placement and prefers [facility] or [facility]. Patient information has been faxed to both facilities. I will continue to follow up. Original Note: I spoke w/ patient and daughter in ED regarding plans once medically stable for discharge. PT/OT has been ordered in ED to evaluate patient. Patient voiced that she is not interested in placement at this time. Patient is currently established w/ [facility] waiver services and home health per daughter. Daughter stated that patient has all appropriate DME at home. I informed patient and daughter that I will return to further discuss placement once PT/OT evaluation is completed.
[2025-01-03 13:46] LABS: Reflex Lactic Add Lactic Reflex
--- NOTE | 2025-01-03 14:15 | PC.NURSE ---
Per [facility] second lactic is not needed at this time.
--- NOTE | 2025-01-03 14:27 | HMH.PTEV ---
Physical Therapy Evaluation Rehab PT IP Evaluation Start: 01/03/25 13:08 Freq: ONCE Status: Active Protocol: Document 01/03/25 14:13 [email or web address] (Rec: 01/03/25 14:27 WILFRIDO [id number]) Subjective/History History History Per H&P: Lenore Hood is a 74y female with a past medical history for malignant brain tumor status post resection as a child In the 1960s complicated by right hemiparalysis but still able to ambulate with a 4 point cane who presents to the emergency department after multiple falls. Patient brought by EMS. Patient's daughter, who is her POA, arrived shortly after and provide additional details of the history. Reports that 1.5 weeks ago, patient had a fall from standing and sustained bruising to her right shoulder and her right flank. They note that she was at approximately 1.5 to 2 weeks ago and was diagnosed with brain tumor and was put on gabapentin for nerve pain, however her symptoms have worsened since then, describing weakness and falls. They state that today she was transitioning from the bed to the bedside commode when she fell. She was with home health at the time who recommended she come to the emergency department. Daughter notes that she cares for her on the weekends but home health is there 5 days a week. They report that she is supposed to follow-up with [facility] but has not set up an appointment yet. Daughter feels that she is at her baseline mental status today. Patient is complaining of pain all over. Daughter does note that she is been complaining of pain in her left knee recently. Subjective Subjective Where is my daughter? Pt with difficulty answering history questions. Able to state name and that she has daily caretakers Daughter arrived and reports pt had fallen at home. Daughter reports pt lives alone and usually requires assistance with transfers. Pt used to be able to walk with a howard walker but has declined since recent falls. New diagnosis of cancer in past 12 No months? [facility] How much help from another person do you currently need... Turning from your back to your side A lot while in a flat bed without using bedrails? Moving from lying on back to sitting on A lot the side of a flat bed without using bedrails? Moving to and from a bed to a chair ( A lot including a wheelchair)? Standing up from a chair using your arms Total ? (e.g., wheelchair, bedside chair) Walking in hospital room? Total Climbing 3-5 steps with a railing? Total Mobility Score 9 Mobility Level [facility] Mobility Calculator Mobility 3 Sit at edge of bed Rehab PT IP Eval Objective Appearance Patient Behavior Appropriate Patient Orientation Person Difficulty following instructions mild Speech Pattern Aphasic Ambulation Patient Able to Ambulate No Balance Ability to Arise Unable Sitting Balance Leans or slides in chair Transfers Bed Transfer Ability Maximum x 2 (75% assist) Rehab PT IP prob,goals,plan Problems Date of Evaluation: 01/03/25 PT IP Problems Bed Mobility,Transfers,Gait, Balance,Self care,Safety Rehab Potential Rehab Potential Good Plan PT Intervention Plan Bed Mobility,Transfers,Gait, Balance,Self care,Safety, Therapeutic Exercise Other Intervention Plan 1-2 times PT Plan Frequency Daily Duration LOS Discharge Goals Bed Transfer Ability Maximum x 1 (75% assist) Sit to Stand Chair Transfer Ability Maximum x 1 (75% assist) Discharge Plan PT Discharge Plan Pt not appropriate to return home alone. Pt required Max A to transition from supine>EOB. Pt most appropriate for skilled IP rehab to return to PLOF and maximize safety. If admitted to [facility], would benefit from skilled acute care PT to address deficits and prevent further functional decline. Eval Complexity Eval Charge Codes 35586 - Moderate Complexity PHYSICIAN CERTIFICATION: I certify the specified therapy services for Lenore Hood are required, authorized, and reviewed every 30 days.
--- NOTE | 2025-01-03 15:13 | HMH.OTEV ---
OT Inpatient Evaluation Rehab OT IP Evaluation Start: 01/03/25 13:08 Freq: ONCE Status: Active Protocol: Document 01/03/25 15:00 HENNY (Rec: 01/03/25 15:13 [facility] [id number]) Rehab OT IP Assessment Subjective History Per H&P: Lenore Hood is a 74y female with a past medical history for malignant brain tumor status post resection as a child In the 1960s complicated by right hemiparalysis but still able to ambulate with a 4 point cane who presents to the emergency department after multiple falls. Patient brought by EMS. Patient's daughter, who is her POA, arrived shortly after and provide additional details of the history. Reports that 1.5 weeks ago, patient had a fall from standing and sustained bruising to her right shoulder and her right flank. They note that she was at approximately 1.5 to 2 weeks ago and was diagnosed with brain tumor and was put on gabapentin for nerve pain, however her symptoms have worsened since then, describing weakness and falls. They state that today she was transitioning from the bed to the bedside commode when she fell. She was with home health at the time who recommended she come to the emergency department. Daughter notes that she cares for her on the weekends but home health is there 5 days a week. They report that she is supposed to follow-up with [facility] but has not set up an appointment yet. Daughter feels that she is at her baseline mental status today. Patient is complaining of pain all over. Daughter does note that she is been complaining of pain in her left knee recently. Subjective Where is my daughter? Pt with difficulty answering history questions. Able to state name and that she has daily caretakers Daughter arrived and reports pt had fallen at home. Daughter reports pt lives alone and usually requires assistance with transfers. Pt used to be able to walk with a howard walker but has declined since recent falls. Objective Patient Orientation Person Right Upper Extremity Gross ROM Sev Limitation >75% Left Upper Extremity Gross ROM Min Limitation <25% Shoulder ROM Limitations Contracture,Muscle Weakness, Muscle Tone Elbow ROM Limitations Contracture,Muscle Weakness, Muscle Tone Wrist Limitations of Range of Motion Contracture,Muscle Weakness, Muscle Tone Bed Mobility bed mobility-scooting,bed mobility - supine/sit Assist Level Maximum x 2 (75% assist) Rehab OT IP prob,goals,plan Problems Date of Evaluation: 01/03/25 OT IP Problems Bed Mobility,Transfers,Balance ,Self care,Safety Rehab Potential Rehab Potential Good Equipment Needs Assistive Devices Rolling / Wheeled Walker Plan OT intervention Plan Bed Mobility,Transfers,Balance ,Self care,Safety,Therapeutic Exercise OT Plan Frequency Daily Duration LOS Discharge Goals Bed Mobility Ability Assistance x1 Sit to Stand Chair Transfer Ability Maximum x 1 (75% assist) Chair Transfer Ability Maximum x 1 (75% assist) Chair Transfer Technique Stand Pivot Chair Transfer Assistive Devices Rolling Walker Feeding Ability Assist with Tray Set Up Lower Body Dressing Ability Maximum Assistance Upper Body Dressing Ability Moderate Assistance Bathing Ability Maximum Assistance Performing Toilet Hygiene Ability Maximum Assistance Overall Commode/Toilet Transfer Ability Maximum Assistance Commode/Toilet Transfer Technique Stand Pivot Commode/Toilet Transfer Assistive Grab Bars Devices Oral Care Assist Minimal Assistance Discharge Plan OT Discharge Plan Pt not appropriate to return home alone. Pt required Max A to transition from supine>EOB. Pt most appropriate for skilled short term rehab at [facility] in order to return to OF and maximize safety. If admitted to [facility], would benefit from skilled acute care OT to address deficits and prevent further functional decline. Eval Complexity Eval Charge Codes 85267 - Moderate Complexity PHYSICIAN CERTIFICATION: I certify the specified therapy services for Lenore Hood are required, authorized, and reviewed every 30 days.
--- NOTE | 2025-01-03 15:43 | PC.NURSE ---
is speaking with Rolanda in case management
--- NOTE | 2025-01-03 15:50 | PC.NURSE ---
I notified [facility] of the need for a bed to admit the pt for weakness, failed out pt pt/ot, and placement.
--- NOTE | 2025-01-03 16:51 | PC.NURSE ---
Pt's family is concerned about pt falling more frequently since starting gabapentin.
[2025-01-03] MEDS: CELECOXIB 100MG CAPSULE 100 MG PO (21:41)
[2025-01-03] MEDS: PANTOPRAZOLE 40MG TABLET 40 MG PO (21:41)
[2025-01-03] MEDS: ATORVASTATIN 40MG TABLET 80 MG PO (21:41)
[2025-01-03] MEDS: FAMOTIDINE 20MG TABLET 20 MG PO (21:41)
--- NOTE | 2025-01-03 22:55 | P.HP_ITS ---
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 Patient was recently at her facility for headaches and was found to have known meningiomas, transfer to where they started gabapentin for headaches. Unfortunately, since then patient has had multiple falls at home in addition to weakness. Headaches seem to have improved however. CT head showed known meningiomas which are stable in size. Personal review of CT head shows mass effect though not significant, no midline shift. PT/OT was consulted in the ED, and they recommended SNF. Case discussed with ED provider and decision was made to admit patient for functional decline. [facility] Disclaimer: The information contained in this section may have been updated after the patient was seen, as this information can be updated by other users. Medical History (Updated 01/03/25 @ 23:16 by Boo Colin MD) Osteoarthritis of left knee Family History (Updated 01/03/25 @ 17:01 by Shiela Giles RN) Other Cancer Social History (Updated 01/03/25 @ 17:01 by Shiela Giles RN) Smoking Status: Never smoker second hand exposure: Yes alcohol intake: never substance use type: denies use current occupational status: disabled Travel in the last 8 weeks?: None household members: none housing: [facility] current occupational exposures/hazards: No caffeine: Yes Have you lived/traveled outside [place] in past 30 days?: No Contact w/someone who lives/traveled outside [place] past 30 days?: No Exposure to someone with infectious disease in past 14 days?: No Do you have a fever (greater than 100.4 F or 38 C)?: No Have you tested positive for COVID-19?: No Exposed to someone with COVID-19 in past 14 days?: No Do you have a sore throat?: No Do you have a cough?: No Do you have any weakness?: No Do you have any diarrhea?: No Are you experiencing any unusual bleeding?: No Do you have any muscle aches/pain?: No Do you have any abdominal pain?: No Are you experiencing loss of taste or smell?: No Other Medical History Have you received the Flu Vaccine for this season: Yes Have you received the Pneumonia Vaccine: Yes Meds Home Medications and Allergies Home Medications ?Medication ?Instructions ?Recorded ?Confirmed ?Type baclofen 10 mg tablet 10 mg PO TIDP PRN Muscle Spasm 07/27/18 01/03/25 History omeprazole 20 mg capsule,delayed 20 mg PO BID acid reflux 07/27/18 01/03/25 History release alendronate 70 mg tablet 70 mg PO WEEKLY 11/15/20 01/03/25 History cwjizpbk-qsuh-zpnl 8 mg-folic 400 1 each PO DAILY 09/26/21 01/03/25 History mcg-K 50 mcg-lutein 300 mcg tablet gabapentin 100 mg capsule 100 mg PO TID 12/10/21 01/03/25 History vibegron 75 mg tablet (Gemtesa) 75 mg PO DAILY #30 tabs 12/25/21 01/03/25 Rx atorvastatin 80 mg tablet 80 mg PO HS 01/03/25 01/03/25 History celecoxib 100 mg capsule 100 mg PO BID 01/03/25 01/03/25 History famotidine 20 mg tablet 20 mg PO BID 01/03/25 01/03/25 History hydrocodone 7.5 mg-acetaminophen 1 tab PO Q8HP PRN Severe Pain 01/03/25 01/03/25 History 325 mg tablet (Scale Score 7-10) New Prescriptions to Start Prescriptions: Allergies Allergy/AdvReac Type Severity Reaction Status Date / Time sulfamethoxazole Allergy Unknown Unknown Verified 01/03/25 12:06 allergy reaction Exam Data for Last 24 hours Vital signs and Labs for Last 24 Hours: Temp Pulse Resp BP Pulse Ox O2 Del Method 98.3 F 108 H 18 134/49 L 91 L Room Air 01/03/25 20:00 01/03/25 20:00 01/03/25 20:00 01/03/25 20:00 01/03/25 20:00 01/03/25 21:00 Laboratory Results - last 24 hr 01/03/25 09:23: WBC 9.3, RBC 4.93, Hgb 14.4, Hct 45.4, MCV 92.1, MCH 29.2, MCHC 31.7 L, RDW 14.1, Plt Count 315, MPV 9.1, Neut % (Auto) 60.4, Lymph % (Auto) 28.8, [place] % (Auto) 7.8, Eos % (Auto) 2.0, Baso % (Auto) 0.4, Neut # (Auto) 5.6, Lymph # (Auto) 2.7, [place] # (Auto) 0.7, Eos # (Auto) 0.2, Baso # (Auto) 0.0, PT 9.8 L, INR 0.86 L, Sodium 138, Potassium 4.8, Chloride 107, Carbon Dioxide 28, Anion Gap 7.8, BUN 15, Creatinine 0.60, Estimated Creat Clear 59, Estimated GFR 98, Est GFR ( Amer) 119, Glucose 106 H, Calcium 9.3, Total Bilirubin 0.7, AST 36, ALT 37, Alkaline Phosphatase 101, Troponin I < 0.01, Total Protein 6.9, Albumin 4.2, Globulin 2.7, Albumin/Globulin Ratio 1.6, Lipase 89 01/03/25 09:39: VBG pH 7.41, VBG pCO2 40.6, VBG pO2 28.7, VBG HCO3 25.0, VBG Total CO2 26.3, VBG O2 Saturation 54.8, VBG Base Excess 0.4, VBG Lactic Acid 2.4 H, Urine Color Yellow, Urine Appearance Clear, Urine pH 7.5, Ur Specific [place] 1.015, Urine Protein Negative, Urine Glucose (UA) Negative, Urine Ketones Negative, Urine Blood Negative, Urine Nitrate Negative, Urine Bilirubin Negative, Urine Urobilinogen 0.2, Ur Leukocyte Esterase Trace, Urine RBC None, Urine WBC 10-20, Ur Squamous Epith Cells 10-20, Amorphous Sediment Trace, Urine Bacteria Trace 01/03/25 12:30: Troponin I < 0.01 I & O for Last 24 hours: Intake & Output 12/31/24 01/01/25 01/02/25 01/03/25 23:59 23:59 23:59 23:59 Intake Total 250 / 250 Output Total 250 / 250 Balance 0 / 0 Weight 74.843 kg Constitutional Constitutional: no acute distress *Routine HEENT Exam Head: Present normocephalic Eye: Present EOMI and PERRL ENT: Present mucous membranes moist *Routine Neck Exam Neck: Present supple; Absent lymphadenopathy *Routine Respiratory Exam Respiratory: Present CTA bilaterally *Routine Cardiovascular Exam Cardiovascular: Present RRR *Routine Abdominal Exam Abdominal: Present soft and normoactive bowel sounds; Absent tenderness *Routine Rectal Exam Rectal:: deferred *Routine Genitalia Exam Genitalia:: deferred *Routine Extremities Exam Extremities: Absent cyanosis, clubbing or edema *Routine Skin Exam Skin: Present warm; Absent rash *Routine Neurological Exam Neurological: Present alert Comments: Right-sided residual weakness. 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 Patient was recently at her facility for headaches and was found to have known meningiomas, transfer to where they started gabapentin for headaches. Unfortunately, since then patient has had multiple falls at home in addition to weakness. Headaches seem to have improved however. CT head showed known menin giomas which are stable in size. Personal review of CT head shows mass effect though not significant, no midline shift. PT/OT was consulted in the ED, and they recommended SNF. Case discussed with ED provider and decision was made to admit patient for functional decline. #Falls #Functional decline #Brain meningiomas #Headache ? Patient was started on gabapentin about 3 weeks ago for headaches related to meningiomas. Headaches seem to have improved the patient has had functional decline, falls, weakness since starting gabapentin. ? PT/OT consulted, recommended SNF. Case management assisting with placement. ? Currently takes gabapentin 100 mg 3 times daily, taper off to one-time dose of 100 mg in the morning. Can use opioids for pain control, or do not titrate gabapentin pending response. ? [place]olt as needed for pain control. ? Follow-up TSH, B12, folate. #GERD ? Continue home PPI. #Chronic pain syndrome ? Continue home Lab[place]. Full code DVT prophylaxis: Lovenox 40 mg
[2025-01-04 04:00] VITALS: BP 109/59; PULSE 105; RESP 16; TEMP 36.7; O2SAT 89; BMI 32.4
--- NOTE | 2025-01-04 04:21 | PC.NURSE ---
Alert and oriented. Slept well throughout the night. No complaints throughout the shift. Easy to awaken. Turned at request. Uses purewick per request. Lung sounds clear. Abdomen soft and nontender. Abrasion noted to left lower back. Call light in reach.
--- NOTE | 2025-01-04 04:37 | PC.NURSE ---
All care and documentation done under this RNs direct supervision.
[2025-01-04 05:29] VITALS: O2SAT 92
--- NOTE | 2025-01-04 07:47 | HMH.PHAINT1 ---
Pharmacy Intervention Comments: MEDICATION RECONCILIATION COMPLETED ON PATIENT USING EXTERNAL FILL HISTORY FROM PHARMACY AND BAILEY REPORT. -DOTTY WAHL, JANETHD
[2025-01-04 07:57] LABS: Thyroid Stimulating Hormone 1.07 uIU/mL (0.465-4.68)
[2025-01-04 08:00] VITALS: BP 149/67; PULSE 104; RESP 16; TEMP 36.4; O2SAT 90
[2025-01-04 08:16] LABS: Vitamin B12 996 pg/mL (239-931)
[2025-01-04 08:35] LABS: Folate > 20.00 ng/mL
[2025-01-04] MEDS: ENOXAPARIN 40MG/0.4ML SYRINGE 40 MG SUBCUT (08:56)
[2025-01-04] MEDS: CELECOXIB 100MG CAPSULE 100 MG PO (08:56)
[2025-01-04] MEDS: FAMOTIDINE 20MG TABLET 20 MG PO (08:56)
[2025-01-04] MEDS: PANTOPRAZOLE 40MG TABLET 40 MG PO (09:08)
[2025-01-04 10:21] LABS: Chloride 112 mmol/L (98-107); Potassium 4.8 mmoL/L (3.5-5.1); Sodium 140 mmol/L (136-145)
[2025-01-04 10:24] LABS: Blood Urea Nitrogen 17 mg/dl (7-17); Creatinine Clearance Estimated 63 mL/min (50-200); Estimated Glomerular Filt Rate 82 ml/min (>60); GFR (African American) 99 ML/MIN (>60)
[2025-01-04 10:25] LABS: Anion Gap 9.8 mEq/L (5-15); Calcium 9.3 mg/dl (8.4-10.2); Carbon Dioxide 23 mmol/L (22.0-30.0); Glucose 110 mg/dl (74-100)
[2025-01-04] MEDS: PREGABALIN 25MG CAPSULE 25 MG PO (11:56)
--- NOTE | 2025-01-04 13:19 | EXP.DC.SUM ---
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 Patient was recently at her facility for headaches and was found to have known meningiomas, transfer to where they started gabapentin for headaches. Unfortunately, since then patient has had multiple falls at home in addition to weakness. Headaches seem to have improved however. CT head showed known meningiomas which are stable in size. Personal review of CT head shows mass effect though not significant, no midline shift. PT/OT was consulted in the ED, and they recommended SNF. Case discussed with ED provider and decision was made to admit patient for functional decline. 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 Patient was recently at her facility for headaches and was found to have known meningiomas, transfer to where they started gabapentin for headaches. Unfortunately, since then patient has had multiple falls at home in addition to weakness. Headaches seem to have improved however. CT head showed known meningiomas which are stable in size. Personal review of CT head shows mass effect though not significant, no midline shift. PT/OT was consulted in the ED, and they recommended SNF. Case discussed with ED provider and decision was made to admit patient for functional decline. Did well overnight. Excepted to [facility] for continued care. Stable to discharge. Problems addressed as follows: #Falls #Functional decline #Brain meningiomas #Headache ? Patient was started on gabapentin about 3 weeks ago for headaches related to meningiomas. Headaches seem to have improved, however the patient has had functional decline, falls, weakness since starting gabapentin. Will transition to Lyrica 25 mg twice daily. Therapy evaluated, recommend SNF. Excepted to [facility] for further management. Remained hemodynamically stable. Labs normal. Will discharge for skilled care. Continued medications per med rec. Patient overall doing well, feeding herself on day of discharge. Working with therapy. Remains quite weak and needs significant support. #GERD: Continue home PPI. #Chronic pain syndrome: Continue home [place], transitioned from gabapentin to Lyrica. Total time spent on discharge 32 minutes in counseling, documentation, chart review, and direct care with patient. Exam Data for Last 24 hours Vital signs and Labs for Last 24 Hours: Temp Pulse Resp BP Pulse Ox O2 Del Method 97.6 F 104 H 16 149/67 H 90 L Room Air 01/04/25 08:00 01/04/25 08:00 01/04/25 08:00 01/04/25 08:00 01/04/25 08:00 01/04/25 12:28 Laboratory Results - last 24 hr 01/03/25 12:30: Troponin I < 0.01 01/04/25 05:53: Sodium 140, Potassium 4.8, Chloride 112 H, Carbon Dioxide 23, Anion Gap 9.8, BUN 17, Creatinine 0.70, Estimated Creat Clear 63, Estimated GFR 82, Est GFR ( Amer) 99, Glucose 110 H, Calcium 9.3, Magnesium 2.0, Vitamin B12 996 H, Folate > 20.00, TSH 1.07 I & O for Last 24 hours: Intake & Output 01/01/25 01/02/25 01/03/25 01/04/25 23:59 23:59 23:59 23:59 Intake Total 250 / 470 700 / 700 Output Total 250 / 250 450 / 450 Balance 0 / 220 250 / 250 Weight 74.843 kg 80.059 kg Microbiology Reports for the Last 24 Hours: Microbiology 01/03/25 09:39 Urine,Clean Catch Urine Culture - Preliminary Constitutional Constitutional: no acute distress, obese, chronically ill appearing and cooperative *Routine HEENT Exam Head: Present normocephalic Eye: Present EOMI and PERRL ENT: Present mucous membranes moist *Routine Neck Exam Neck: Present supple; Absent lymphadenopathy *Routine Respiratory Exam Respiratory: Present CTA bilaterally; Absent respiratory distress, rhonchi, stridor, wheezes or crackles *Routine Cardiovascular Exam Cardiovascular: Present RRR *Routine Abdominal Exam Abdominal: Present soft and normoactive bowel sounds; Absent tenderness *Routine Rectal Exam Patient deferred: visual exam *Routine Exam Patient deferred: external exam *Routine Extremities Exam Extremities: Present edema (1+ BLE); Absent cyanosis or clubbing *Routine Skin Exam Skin: Present intact and warm; Absent rash *Routine Neurological Exam Neurological: Present alert, oriented X3, abnormal gait and moving all extremities; Absent altered mental status Comments: chronic right sided weakness, stable Results Data Completed and Pending Labs on day of discharge: Labs from last 24 hours 01/04/25 01/03/25 05:53 12:30 Sodium 140 Potassium 4.8 Chloride 112 H Carbon Dioxide 23 Anion Gap 9.8 BUN 17 Creatinine 0.70 Estimated Creat Clear 63 Estimated GFR 82 Est GFR ( Amer) 99 Glucose 110 H Calcium 9.3 Magnesium 2.0 Troponin I < 0.01 Vitamin B12 996 H Folate > 20.00 TSH 1.07 Preliminary micro results at discharge 01/03/25 09:39 Urine Culture - Preliminary Urine,Clean Catch DS: Diagnosis Discharge Diagnosis (1) Falls: Status: Acute Code(s): R29.6 - Repeated falls Meds Home Medications and Allergies Home Medications ?Medication ?Instructions ?Recorded ?Confirmed ?Type alendronate 70 mg tablet 70 mg PO WEEKLY 30 days #5 tabs 01/04/25 Rx atorvastatin 80 mg tablet 80 mg PO HS 30 days #30 tabs 01/04/25 Rx baclofen 10 mg tablet 10 mg PO TIDP PRN Muscle Spasm 30 01/04/25 Rx days #90 tabs celecoxib 100 mg capsule 100 mg PO BID 30 days #60 caps 01/04/25 Rx famotidine 20 mg tablet 20 mg PO BID 30 days #60 tabs 01/04/25 Rx hydrocodone 7.5 mg-acetaminophen 1 tab PO Q8HP PRN Severe Pain 01/04/25 Rx 325 mg tablet (Scale Score 7-10) 30 days #90 tabs tmwealmc-nxtj-tvst 8 mg-folic 400 1 each PO DAILY 30 days #30 tabs 01/04/25 Rx mcg-K 50 mcg-lutein 300 mcg tablet omeprazole 20 mg capsule,delayed 20 mg PO BID 30 days #60 caps 01/04/25 Rx release pregabalin 25 mg capsule 25 mg PO BID 30 days #60 caps 01/04/25 Rx vibegron 75 mg tablet (Gemtesa) 75 mg PO DAILY 30 days #30 tabs 01/04/25 Rx New Prescriptions to Start Prescriptions: alendronate Bill,Rito atorvastatin Bill,Rito baclofen Bill,Rito celecoxib Bill,Rito famotidine Bill,Rito hydrocodone-acetaminophen Bill,Rito vkkyrlbx-mnj-kmhk-FA-vit K-lut Rito Khan omeRito Alejandro pregabalin Rito Khan vibegron [Gemtesa] Rito Khan Allergies Allergy/AdvReac Type Severity Reaction Status Date / Time sulfamethoxazole Allergy Unknown Unknown Verified 01/03/25 12:06 allergy reaction Discharge Plan Disposition Patient Disposition: Xfer SNF Condition: Fair Discharge Order Discharge Orders: Discharge Order (Routine); Ordered 01/04/25 Ordered By: Rito Khan Follow up Plan Prescriptions/Medication Reconciliation: New pregabalin 25 mg Capsule 25 mg PO BID 30 Days Qty: 60 0RF Continued atorvastatin 80 mg tablet 80 mg PO HS 30 Days Qty: 30 0RF alendronate 70 mg tablet 70 mg PO WEEKLY 30 Days Qty: 5 0RF famotidine 20 mg tablet 20 mg PO BID 30 Days Qty: 60 0RF baclofen 10 mg tablet 10 mg PO TIDP PRN (Reason: Muscle Spasm) 30 Days Qty: 90 0RF hydrocodone-acetaminophen 7.5-325 mg tablet 1 tab PO Q8HP PRN (Reason: Severe Pain (Scale Score 7-10)) 30 Days Qty: 90 0RF omeprazole 20 mg capsule,delayed release(DR/EC) 20 mg PO BID 30 Days Qty: 60 0RF celecoxib 100 mg capsule 100 mg PO BID 30 Days Qty: 60 0RF evsvpjgb-wjs-xyav-FA-vit K-lut 1 EACH tablet 1 each PO DAILY 30 Days Qty: 30 0RF Gemtesa 75 mg tablet 75 mg PO DAILY 30 Days Qty: 30 5RF Discontinued gabapentin 100 mg capsule 100 mg PO TID Problem Reconciliation Problems Reviewed?: Yes Patient Discharge Instructions ACTIVITY: Continue current activity DIET: continue same diet Patient Instructions: How to Prevent Falls, DI for Muscle Weakness, Stop Light Infection Print Language: [place] Providers Primary Care Provider: Provider,[employer] Admit Provider: Boo Colin Attending Provider: Boo Colin
--- NOTE | 2025-01-04 14:45 | PC.NURSE ---
[facility]
== END 2025-01-04 15:26 ==
LOC: ER 15:55 → 2ND 16:45
PROVIDERS: Internal Medicine Adolescent Medicine; Student in an Organized Health Care Education/Training Program; Admitting Provider Student in an Organized Health Care Education/Training Program; Emergency Provider Emergency Medicine; Visit Provider Student in an Organized Health Care Education/Training Program
DX: R29.6 Repeated falls (principal); D42.0 Neoplasm of uncertain behavior of cerebral meninges; K21.9 Gastro-esophageal reflux disease without esophagitis; G89.4 Chronic pain syndrome; G81.91 Hemiplegia, unspecified affecting right dominant side; R51.9 Headache, unspecified; M17.12 Unilateral primary osteoarthritis, left knee; R53.81 Other malaise; E66.9 Obesity, unspecified; Z88.2 Allergy status to sulfonamides; Z79.899 Other long term (current) drug therapy; Z79.891 Long term (current) use of opiate analgesic; Z68.32 Body mass index [BMI] 32.0-32.9, adult; Z85.841 Personal history of malignant neoplasm of brain; Z98.890 Other specified postprocedural states; Z80.9 Family history of malignant neoplasm, unspecified; Z77.22 Contact with and (suspected) exposure to environmental tobacco smoke (acute) (chronic)
CPT/HCPCS: 36415; 70450; 70496; 70498; 71275; 72125; 73560; 74174; 80048; 80053; 81001; 82607; 82746; 82803; 83690; 83735; 84443; 84484; 85025; 85610; 87086; 87186; 93005; 97530; 99285; G0378; J1650; J2270; J2405; J7120; Q9967

== ENCOUNTER 2025-06-01 06:38 | Outpatient (CLI) | payer MEDICARE, MEDICAID, SELFPAY ==
--- OUTSIDE RECORDS SUMMARY | 2025-06-01 06:41 | XMS_ITS | Clinical Summary ---
Author Organization [facility] Address [address] [place] [address] Care Team Providers Care Time Study Engineer Name Role Phone Thuan Tejada MD Primary Care Provider [phone] Allergies Active Allergy Reactions Criticality Noted Date Comments Sulfacetamide Unknown - Patient st ates they do not know rxn details Low 08/11/2018 Medications alendronate (Fosamax) 70 MG tablet Take 1 tablet by mouth every 7 (seven) days. Active atorvastatin (Lipitor) 80 MG tablet Take 1 tablet by mouth daily. Active Multiple Vitamins-Minera ls (Centrum Silver 50+Women) tablet Take 1 tablet by mouth in the morning. Active omeprazole (PriLOSEC) [address] capsule Take 1 capsule by mouth 2 (two) times a day. Active celecoxib (CeleBREX) 100 MG capsule Take 1 capsule by mouth 2 (two) times a day. Active baclofen (Lioresal) 10 MG tablet Take 1 tablet by mouth 3 (three) times a day as needed. Active Gemtesa 75 MG tablet Take 75 mg by mouth daily. Active HYDROcodone-rachel taminophen ([place]) 7.5-325 MG tablet Take 1 tablet by mouth every 8 hours as needed. Active acetaminophen (Tylenol 8 Hour) 650 MG ER tablet Take 2 tablets by mouth in the morning and 2 tablets before bedtime. Do not crush, chew, or split. Active aspirin 81 MG chewable tablet Chew 1 tablet daily. 30 tablet 1 Active Additional Information Patient not taking.Reported on 12/02/2024 levETIRAcetam (Keppra) 500 MG tablet Take 1 tablet by mouth in the morning and 1 tablet before bedtime. 60 tablet 2 5 Active Additional Information Patient not taking.Reported on 12/02/2024 dexamethasone (Decadron) 2 MG tablet Take 1 tablet by mouth in the morning and 1 tablet in the evening. Take with meals. 60 tablet 5 Active Additional Information Patient not taking.Reported on 12/02/2024 gabapentin (Neurontin) 100 MG capsule Take 1 capsule by mouth in the morning and 1 capsule at noon and 1 capsule before bedtime. 90 capsule Active famotidine (Pepcid) 20 MG tablet Take 1 tablet by mouth in the morning and 1 tablet before bedtime. 60 tablet 1 Active Active Problems Problem Noted Date Diagnosed Date Headache 11/22/2024 Gastro-esophageal reflux disease without esophag itis 12/28/2022 Overview (12/28/2022): GERD (gastroesophageal reflux disease) Hyperlipidemia, unspecified 12/28/2022 Overview (12/28/2022): Hyperlipidemia CVA, old, cognitive deficits 12/28/2022 Hernia 12/26/2022 Incisional hernia with obstruction but no gangre ne 10/30/2022 Overview (10/30/2022): Added automatically from request for surgery [id number] Immunizations Immunization Administration Dates Next Due Influenza, high-dose, quadrivalent 05/21/2019, PPD Skin Test (TB Skin Test) 10/04/2021 Pneumococcal Conjugate PCV 13 07/02/2018 Family History Medical History Relation Name Comments Breast cancer Mother FH: breast can cer Anesthesia problems Neg Hx Malig Hyperthermia Neg Hx Relation Name Status Comments Mother Social History Tobacco Use Types Packs/Day Years Used Date Smoking Tobacco: Never Passive Smoke Exposure: Yes Smokeless Tobacco: Never Tobacco Cessation:Counseling Given: Not Answered Alcohol Use Standard Drinks/Week Comments Never 0 (1 standard drink = 0.6 oz pur e alcohol) Humiliation, Afraid, Rape, and Kick questionnair e Answer Date Recorded Within the last year, have y ou been afraid of your partner or ex-partner? No 11/22/2024 Within the last year, have y ou been humiliated or emotionally abused in other ways by your partner or ex-partner? No Within the last year, have y ou been kicked, hit, slapped, or otherwise physically hurt by your partner or ex-partner? No 11/22/2024 Within the last year, have y ou been raped or forced to have any kind of sexual activity by your partner or ex-partner? No 11/22/2024 PHQ-2 Answer Date Recorded Patient Health Questionnaire-2 Score 0 10/30/2022 Hunger Vital Sign Answer Date Recorded Within the past 12 months, y ou worried that your food would run out before you got the money to buy more. Never true 11/23/19 25 Within the past 12 months, t he food you bought just didn't last and you didn't have money to get more. Never true 11/22/2024 PRAPARE - Transportation Answer Date Re corded In the past 12 months, has l ack of transportation kept you from medical appointments or from getting medications? Yes 10/2024 In the past 12 months, has l ack of transportation kept you from meetings, work, or from getting things needed for daily living? Yes 11/25/2024 Housing Stability Vital Sign Answer Brian e Recorded In the last 12 months, was t here a time when you were not able to pay the mortgage or rent on time? No 11/22/2024 In the past 12 months, how m any times have you moved where you were living? 0 11/22/2024 At any time in the past 12 m [facility], were you homeless or living in a fpc (including now)? No 11/22/2024 CAGE ASSESSMENT Answer Date Recorded Cage unable to access Not on file 12/27/2022 Cage max number of drinks Not on file 2022 Cage Beverages a week Not on file 12/27/2022 Have you ever felt you should CUT down on your d rinking? 0 12/27/2022 Have you been ANNOYED by people criticizing your drinking? 0 12/27/2022 Have you felt GUILTY about your drinking? 0 12/27/2022 Have you had a drink first t verito in the morning (EYE-TAB CUTTER) to steady your nerves or to get rid of a hangover? 0 12/27/2022 CAGE Questionnaire Score 0 023 Utilities Answer Date Recorded In the past 12 months has th e electric, gas, oil, or water company threatened to shut off services in your home? No 11/22/2024 PHQ-2A Answer Date Recorded Patient Health Questionnaire-2 Score 0 10/30/2022 Comments No Sex and Gender Information Value Date Recorded Sex Assigned at Not on file Legal Sex Female 8:23 PM EDT Gender Identity Not on file Sexual Orientation Not on file Last Filed Vital Signs Vital Sign Reading Time Taken Comments Blood Pressure 110/65 11/23/2024 2:00 PM EDT Pulse 97 11/23/2024 2:00 PM EDT Temperature 36.9 C (98.5 F) 11/23/2024 12:36 PM EDT Respiratory Rate 19 11/23/2024 2:00 PM EDT Oxygen Saturation 96% 11/23/2024 2:00 PM EDT Inhaled Oxygen Concentration - - Weight 82.6 kg (182 lb) 11/22/2024 6:06 AM EDT Height 157.5 cm (5' 2 ) 11/21/2024 9:48 PM EDT Body Mass Index 33.29 11/21/2024 9:48 PM EDT Plan of Treatment Upcoming Encounters Date Type Department Care Team (Late st Contact Info) Description 06/15/2025 8:00 AM EDT [facility] [address] [place] [address] Ciara Flower, PA [address] [place] [address] Health Maintenance Due Date Last Done Comments [facility]-Bone Density Scan 1950 [facility]-Hepatitis C Screening 1950 [facility]-Medicare Annual Wellness (AWV) 1950 [facility]-Infant/Child/Adol SDOH Screenings 1950 [facility]-DTaP,Tdap,and Td Vaccines (1 - Tdap) 1970 [facility]-Zoster Vaccines (1 of 2) 2001 [facility]-Pneumococcal Vaccine: 50+ Years (2 of 2 - PCV20 or PCV21) 07/02/2019 07/02/2018 [facility]-Breast Cancer Screening 09/21/2022 09/21/2020, 09/16/2019 [facility]-Depression Screening 10/31/2023 10/30/2022 [id number] Vaccine (1 - season) 2025 [facility]-Influenza Vaccine (#1) 04/25/202505/21, 06/26/2018, 06/14/2015 [facility]- SDOH Screenings 05/24/2025 [facility]-Adult SDOH Screenings 05/24/2025 11/22/2024 [facility]-Diabetes: Hemoglobin A1C 11/22/2025 11/22/2024, 05/22/2022 [facility]-RSV Vaccine: 60+ Years or (1 - 1-dose 75+ series) 2026 Colonoscopy Discontinued 07/05/2019, 08/31/2018 [facility]-Obesity Intervention Completed 025, 10/30/2022, 09/05/2022, Additional history exists HPV Vaccines Aged Out No longer eligi ble based on patient's age to complete this topic [facility]-HIB Vaccines Aged Out No longer e ligible based on patient's age to complete this topic [facility]-Hepatitis A Vaccines Aged Out No longer eligible based on patient's age to complete this topic [facility]-IPV Vaccines Aged Out No longer e ligible based on patient's age to complete this topic [facility]-Rotavirus Vaccines Aged Out No lo nger eligible based on patient's age to complete this topic Medical Devices Implanted Type Area Ferry Hand Device Identifier Shelf Expiration Date Model / Serial / Lot Mesh Soft [id number] - [id number] Implanted:Qty: 1 on 12/26/2022 by Boo Gill MD at [facility] N/A: Abdomen [id number] 06/21/2027 [id number] / / [id number] Procedures Procedure Name Priority Date/Time Associated Diagnosis Comments HEMOGLOBIN A1C Add-On 11/22/2024 3:59 AM EDT MAMMOGRAPHY BREAST DIAGNOSTIC TOMOSYNTHESIS BILATERAL Routine 09/21/2020 12:00 AM EST COLONOSCOPY 07/05/2019 from Last 3 Months or Most Recently Relevant to Health Maintenance Results * (ABNORMAL) Hemoglobin A1c (11/22/2024 3:59 AM EDT) Hemoglobin A1c 5.8(H) <5.7 % 11/22/2024 9:11 AM EDT [facility] Blood Venous blood specimen / Unknown Venipuncture / Unknown 11/22/2024 3:59 AM EDT 11/22/2024 4:08 AM EDT Narrative [facility] - 11/22/2024 9:11 AM EDT HA1C Interpretive Data: Diagnosis of Diabetes: Diabetic > or = 6.5% Pre-diabetic 5.7 to 6.4% Non-diabetic < or = 5.6% Glycemic Targets for Type I and Type II Diabetics: Non- Adults <7.0% Adults <6.0% Children and Adolescents <7.5% Source: [place] Diabetes Association. Standards of medical care in diabetes,2017. Diabetes Care.2017:40 (suppl 1):S1-S135. HbA1c assay performed by an ion-exchange chromatography method that is certified traceable to the DCCT. Abebe Vega MD LAB BLOOD ORDERABLES Final Resul t [facility] [address] [place] [address] * Mammography Breast Diagnostic Tomosynthesis Bilateral (09/21/2020 12:00 AM EST) Anatomical Region Laterality Modality Breast Bilateral Mammography Impressions 09/21/2020 12:28 PM EST BI-RADS Assessment Category 2: Benign finding. RECOMMENDATION: Bilateral diagnostic mammogram in 1 year. Page 1 of 2 Patient Name:Lenore Hood : 1950 Age: 70 Gender: femaleDate of Service: 09/21/2020 eferring Phy:Yair Castaneda M.D.Account: [id number] COMMUNICATION: The patient was seen today by the [facility] surgery/oncology team. They discussed the findings as well as our recommendations with the patient and a printed lay language version of the imaging report was given to the patient at the time of visit. The mammogram was read with the assistance of CAD and tomosynthesis. Dictated By: Zhane Carrasco M.D. Verified By: Zhane Carrasco M.D. on 09/21/2020 at 12:22:25 PM Page 2 of 2 Narrative 09/21/2020 12:28 PM EST REQUESTING PHYSICIAN: YAIR CASTANEDA REASON FOR EXAMINATION/PROCEDURE: YEARLY EXAMINATION / PROCEDURE: Diag Mamm Fritz w/cad Sep 21 2020 - 11:20; JUAN DIAGNOSTIC FRITZ Sep 21 2020 - 11:20; HISTORY: Patient is 70 years old and is see n for a diagnostic evaluation; prior history of breast cancer (no new issue). The patient has a history of right breast lumpectomy in September, - dcis and right ultrasound core needle biopsy in July, - malignant. The patient has th e following family history of breast cancer: mother, breast cancer, specified type unknown. COMPARISON: The present examination has been compared to prior imaging studies performed at [facility] on 08/12/2018, and at [facility] on 09/16/2019 and 03/16/2020. FINDINGS: MAMMOGRAM The breast tissue is heterogeneously dense, which may obscure detection of small masses. There is a stable post-lumpectomy scar in the right breast. There are no suspicious masses, calcifications, or areas of architectural distortion in the right breast. In the left breast, no masses, suspicious microcalcifications or architectural distortion are evident. IMPRESSION: BI-RADS Assessment Category 2: Benign fi nding. RECOMMENDATION: Bilateral diagnostic mammogram in 1 year. COMMUNICATION: The patient was seen today by the [facility] surgery/oncology team. They discussed the findings as well as our recommendations with the patient and a printed lay arjun guage version of the imaging report was given to the patient at the time of visit. The mammogram was read with the assistance of CAD and tomosynthesis. Read By: ZHANE CARRASCO M.D. Signed By: ZHANE CARRASCO M.D. on 09/21/2020 at 12::2:7: Verified by: ZHANE CARRASCO M.D. on Sep 21 2020 12:27P Transcribed by: PSC[facility] on Sep 21 2020 12:27P Dictated by: ZHANE CARRASCO M.D. on Sep 21 2020 12:27P Patient Name:Lenore Hood : 1950 Age: 70 Gender: femaleDate of Service: 09/21/2020 eferring Phy:Yair Castaneda M.D.Account: [id number] Yair Castaneda M.D. [facility] [address] [place] [address] FINAL REPORT PROCEDURE: Tomosynthesis Diagnostic Bilateral - bilateral , Diagnostic Mammogram With CAD - bilateral HISTORY: Patient is 70 years old and is seen for a diagnostic evaluation; prior history of breast cancer (no new issue). The patient has a history of right breast lumpectomy in September, - dcis and right ultrasound core needle biopsy in July, - malignant. The patient has the following family history of breast cancer: mother, breast cancer, specified type unknown. COMPARISON: The present examination has been compared to prior imaging studies performed at [facility] on 08/12/2018, and at [facility] on 09/16/2019 and 03/16/2020. FINDINGS: MAMMOGRAM The breast tissue is heterogeneously dense, which may obscure detection of small masses. There is a stable post-lumpectomy scar in the right breast. There are no suspicious masses, calcifications, or areas of architectural distortion in the right breast. In the left breast, no masses, suspicious microcalcifications or architectural distortion are evident. Procedure Note Zhane Carrasco MD - 12/31/2020 REQUESTING PHYSICIAN: YAIR CASTANEDA REASON FOR EXAMINATION/PROCEDURE: YEARLY EXAMINATION / PROCEDURE: Diag Mamm Fritz w/cad Sep 21 2020 - 11:20; JUAN DIAGNOSTIC FRITZ Sep 21 2020 - 11:20; HISTORY: Patient is 70 years old and is see n for a diagnostic evaluation; prior history of breast cancer (no new issue). The patient has a history of right breast lumpectomy in September, - dcis and right ultrasound core needle biopsy in July, - malignant. The patient has th e following family history of breast cancer: mother, breast cancer, specified type unknown. COMPARISON: The present examination has been compared to prior imaging studies performed at [facility] on 08/12/2018, and at [facility] on 09/16/2019 and 03/16/2020. FINDINGS: MAMMOGRAM The breast tissue is heterogeneously dense, which may obscure detection of small masses. There is a stable post-lumpectomy scar in the right breast. There are no suspicious masses, calcifications, or areas of architectural distortion in the right breast. In the left breast, no masses, suspicious microcalcifications or architectural distortion are evident. IMPRESSION: BI-RADS Assessment Category 2: Benign fi nding. RECOMMENDATION: Bilateral diagnostic mammogram in 1 year. COMMUNICATION: The patient was seen today by the [facility] surgery/oncology team. They discussed the findings as well as our recommendations with the patient and a printed lay arjun guage version of the imaging report was given to the patient at the time of visit. The mammogram was read with the assistance of CAD and tomosynthesis. Read By: ZHANE CARRASCO M.D. Signed By: ZHANE CARRASCO M.D. on 09/21/2020 at 12::2:7: Verified by: ZHANE CARRASCO M.D. on Sep 21 2020 12:27P Transcribed by: [facility] on Sep 21 2020 12:27P Dictated by: ZHANE CARRASCO M.D. on Sep 21 2020 12:27P Patient Name:Lenore Hood : 1950 Age: 70 Gender: femaleDate of Service:09/21/2020 eferring Phy:Yair Castaneda M.D.Account: [id number] Yair Castaneda M.D. [facility] [address] [place] [address] FINAL REPORT PROCEDURE: Tomosynthesis Diagnostic Bilateral - bilateral , Diagnostic Mammogram WithCAD - bilateral HISTORY: Patient is 70 years old and is seen for a diagnostic evaluation; priorhistory of breast cancer (no new issue). The patient has a history of right breast lumpectomy in September, - dcisand right ultrasound core needle biopsy in July, - malignant. The patient has the following family historyof breast cancer: mother, breast cancer, specified type unknown. COMPARISON: The present examination has been compared to prior imaging studiesperformed at [facility] on 08/12/2018, and at [facility] on 09/16/2019 and 03/16/2020. FINDINGS: MAMMOGRAM The breast tissue is heterogeneously dense, which may obscure detection ofsmall masses. There is a stable post-lumpectomy scar in the right breast. There are no suspicious masses, calcifications, or areas of architecturaldistortion in the right breast. In the left breast, no masses, suspicious microcalcifications orarchitectural distortion are evident. IMPRESSION: BI-RADS Assessment Category 2: Benign finding. RECOMMENDATION: Bilateral diagnostic mammogram in 1 year. Page 1 of 2 Patient Name:Lenore Hood : 1950 Age: 70 Gender: femaleDate of Service:09/21/2020 eferring Phy:Yair Castaneda M.D.Account: [id number] COMMUNICATION: The patient was seen today by the [facility] surgery/oncology team. Theydiscussed the findings as well as our recommendations with the patient and a printed lay language version of theimaging report was given to the patient at the time of visit. The mammogram was read with the assistance of CAD andtomosynthesis. Dictated By: Zhane Carrasco M.D. Verified By: Zhane Carrasco M.D. on 09/21/2020 at 12:22:25 PM Page 2 of 2 Yair Castaneda MD IMG BI PROCEDURES Final Res ult * COLONOSCOPY (07/05/2019) Anatomical Region Laterality Modality Endoscopy Narrative 07/05/2019 Ordered by an unspecified provider. us Historical Provider GI PROCEDURE ORDERABLES Emiliana l Result from Last 3 Months or Most Recently Relevant to Health Maintenance [place] [address] [place] [address] MEDICARE Advance Directives * Full Code (Latest Code Status on File) Date Activated Date Inactivated Comments 11/22/2024 3:32 AM 11/23/2024 4:48 PM * Full Code Date Activated Date Inactivated Comments 12/26/2022 3:24 PM 01/01/2023 7:20 PM Question Answer Comments Patient has decision-making capacity? Yes Care Teams Time Study Engineer Relationship Specialty Start Date End Date Thuan Tejada MD [address] [place] [address] PCP - General 01/05/21
--- OUTSIDE RECORDS SUMMARY | 2025-06-01 06:41 | XMS_ITS ---
Author Organization [facility] Care Team Providers Care Staff Nurse Anesthetist Name Role Phone Marilia Grier) Unavailable Unavail able Thuan Tejada Unavailable Unavailable Allergies and adverse reactions Code CodeSystem Substance Reaction Severity StartDate Concern Status Sulfamethoxazole /Trimethop rim Moderate 10/04/2021 active Care Team Name Role Address Phone Organization Dates Tuhan Tejada PCP [address], [place], [address], [place] (Office): [facility] 10/04/2021 - 10/20/2021 Marilia Bhagat) [place], [address], [place] (Office): : [facility] 10/04/2021 - 10/20/2021 Goals Section Goals Description Status Target Date Goal is slow gradual weight loss, 1-4#/month, closer to IBWR. Free from chewing problems. Free from edema. Active 10/24/2021 Immunizations Immunization Status Vaccine Details Vaccine Code CodeSystem Date Notes TB 1 Step Mantoux (PPD) completed tuberculin skin test; unspecified formulation lotNumber: [id number] expiry: 11/16/2022 Mfg: sandra gan Given 0.1 ml Left Forearm intradermally 98 CVX created date: 10/11/2021 consent date: 10/11/2021 administer ed date: 10/04/2021 No redness or raised area, no induration. 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 Mental Status Section Date Assessment Total Score Description 10/20/2021 CAM 0 No delirium ind icated 10/11/2021 BIMS 12 moderate cognit radhames impairment CAM 0 No delirium ind icated PHQ-9 05 mild depression Insurance Providers Plan of Treatment Section Interventions Intervention Code Code System Display Name Proposed D ate Problems Problem # Description Date of onset Resolved Date Code CodeSystem Concern Status 1 CONSTIPATION, UNSPECIFIED 10/14/[address] active 2 AGE-RELATED OSTEOPOROSIS WITHOUT CURRENT PATHOLOGICAL FRACTURE 10/04/[address] active 3 BACTEREMIA 10/04/[address] active 4 CALCULUS OF URETER 10/04/[address] active 5 COGNITIVE COMMUNICATION DEFICIT 10/04/[address] active 6 DIFFICULTY IN WALKING, NOT ELSEWHERE CLASSIFIED 10/04/[address] active 7 DYSPHAGIA, OROPHARYNGEAL PHASE 10/04/[address] active 8 GASTRO-ESOPHAGEAL REFLUX DISEASE WITHOUT ESOPHAGITIS 10/04/[address] active 9 HEMIPLEGIA AND HEMIPARESIS FOLLOWING UNSPECIFIED CEREBROVASCULAR DISEASE AFFECTING LEFT NON-DOMINANT SIDE 10/04/[address] active 10 HYPERLIPIDEMIA, UNSPECIFIED 10/04/[address] active 11 MALIGNANT NEOPLASM OF UNSPECIFIED SITE OF UNSPECIFIED FEMALE BREAST 10/04/[address] active 12 MERALGIA PARESTHETICA, LEFT LOWER LIMB 10/04/[address] active 13 MUSCLE WEAKNESS (GENERALIZED) 10/04/[address] active 14 OTHER ACQUIRED DEFORMITIES OF RIGHT FOOT 10/04/[address] active 15 PERSONAL HISTORY OF MALIGNANT NEOPLASM OF BRAIN 10/04/[address] active 16 PERSONAL HISTORY OF OTHER VENOUS THROMBOSIS AND EMBOLISM 10/04/[address] active 17 POLYNEUROPATHY, UNSPECIFIED 10/04/[address] active 18 SEPSIS, UNSPECIFIED ORGANISM 10/04/[address] active 19 TUBULO-INTERSTITIAL NEPHRITIS, 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 COLI] THE CAUSE OF DISEASES CLASSIFIED ELSEWHERE 10/04/[address] active Reason for Referral No Reasons for Referral Entered Social History Social History Observation Description Start Date End Date Code Code System Current Smoking Status Tobacco smoking consumption unknown 207976291 SNOMED CT Sex Assigned At Female 1950 [address]89-8 [facility] Gender Identity Sexual Orientation Vital Signs Code Code System Vitals Name Values and Units Timing Information 9279-1 [facility] Respiratory Rate Value=20.0 Units=/m in 10/20/2021 8462-4 [facility] Blood Pressure-Diastolic Value=64 Un its=mmHg 10/20/2021 8480-6 [facility] Blood Pressure-Systolic Jthfx=697 Un its=mmHg 10/20/2021 8310-5 [facility] Body Temperature Value=97.9 Units= F 10/20/2021 8867-4 [facility] Heart rate Dsjkh=022.0 Units=/min 10/20/2021 28909-0 [facility] O2 % BldC Oximetry Value=98.0 Units= % 10/20/2021 42655-7 [facility] Pain Level Value=0.0 10/20/2021 21341-7 [facility] Weight Nlihj=996.6 Units=Lbs 8302-2 LOINC Height Value=61.0 Units=Inches 10/04/2021
--- OUTSIDE RECORDS SUMMARY | 2025-06-01 06:41 | XMS_ITS | Clinical Summary ---
Author Organization [facility] Address [address] [place] [address] Care Team Providers Care Supervisor Fabrication Name Role Phone Thuan Tejada MD Primary Care Provider + [phone] Allergies Active Allergy Reactions Criticality Noted Date Comments Sulfacetamide Unknown (See Comments) Low 08/11/2018 Sulfamethazine Rash Low 01/25/2025 Medications omeprazole (priLOSEC) 20 MG capsule Take 1 capsule by mouth 2 (Two) Times a Day. Active atorvastatin (LIPITOR) 80 MG tablet Take 1 tablet by mouth Daily. Active baclofen (LIORESAL) 10 MG tablet Take 1 tablet by mouth 3 (Three) Times a Day As Needed. Active Gemtesa 75 MG tablet Take 1 tablet by mouth Daily. Active pregabalin (LYRICA) 25 MG capsule 1 capsule. 01/03/2025 Active famotidine (PEPCID) 20 MG tablet Take 1 tablet by mouth. 11/23/2024 Active celecoxib (CeleBREX) 100 MG capsule 1 capsule. Active alendronate (FOSAMAX) 70 MG tablet 1 tablet. Active HYDROcodone-rachel taminophen (NORCO) 7.5-325 MG per tablet Take 1 tablet by mouth Every 8 (Eight) Hours As Needed. Active multivitamin with minerals (Centrum Silver 50+Women) tablet tablet Take 1 tablet by mouth Daily. Active Family History Medical History Relation Name Comments Cancer Mother Diabetes Mother Other Sister Relation Name Status Comments Mother Sister Social History Tobacco Use Types Packs/Day Years Used Date Smoking Tobacco: Never Passive Smoke Exposure: Never Smokeless Tobacco: Never Tobacco Cessation:Counseling Given: No Alcohol Use Standard Drinks/Week Comments Never 0 (1 standard drink = 0.6 oz pur e alcohol) Comments Unknown Sex and Gender Information Value Date Recorded Sex Assigned at Not on file Legal Sex Female 5:13 PM EDT Gender Identity Not on file Sexual Orientation Not on file Last Filed Vital Signs Vital Sign Reading Time Taken Comments Blood Pressure - - Pulse - - Temperature 36.7 C (98 F) 02/11/2025 3:11 PM EDT Respiratory Rate - - Oxygen Saturation - - Inhaled Oxygen Concentration - - Weight 78 kg (172 lb) 02/11/2025 3:11 PM EDT Height 157.5 cm (5' 2 ) 02/11/2025 3:11 PM EDT Body Mass Index 31.46 02/11/2025 3:11 PM EDT Plan of Treatment Upcoming Encounters Date Type Department Care Team (Late st Contact Info) Description 08/12/2025 10:45 AM EST Appointment [facility] AT [address] [place] [address] 08/12/2025 12:20 PM EST Office Visit [facility] [address] [address] Cyrus Bateman MD [address] [address] Health Maintenance Due Date Last Done Comments DXA SCAN 1950 TDAP/TD VACCINES (1 - Tdap) 1970 COLON CANCER SCREENING 5 YEA R SIGMOIDOSCOPY [address] COLONOGRAPHY 1996 FECAL OCCULT BLOOD TEST 1996 FIT Testing (1 year) 1996 ZOSTER VACCINE (1 of 2) 2001 Pneumococcal Vaccine 50+ (2 of 2 - PPSV23) 07/02/2019 07/02/2018 COLOGUARD 06/16/2021 06/16/2018 MAMMOGRAM 09/21/2022 09/21/2020, 08/26, 03/16/2020, Additional history exists ANNUAL WELLNESS VISIT 02/11/2025 HEPATITIS C SCREENING 02/11/2025 INFLUENZA VACCINE 03/25/2025 05/21/2019, , 06/14/2015 COVID-19 Vaccine (2 5 season) 2025 COLONOSCOPY 07/05/2029 07/05/2019, 06/25, 08/31/2018 COLORECTAL CANCER SCREENING 07/05/2029 Insurance [employer] MEDICARE ADVANTAGE SNP PPO Advance Directives Documents on File Type Date Recorded Patient Taper And Floater Expl anation PATIENT ADVANCE DIRECTIVES - SCAN 02/08/2025 8:40 AM HEALTH CARE DIRECTIVES, [facility], 07/31/2015 POWER OF HONING MACHINE SET UP OPERATOR TOOL - SCAN 02/08/2025 8:29 AM POWER OF HONING MACHINE SET UP OPERATOR TOOL, [facility], 07/31/2015 POWER OF HONING MACHINE SET UP OPERATOR TOOL - SCAN 01/05/2025 9:53 AM DURABLE POWER OF HONING MACHINE SET UP OPERATOR TOOL [facility] Care Teams Supervisor Fabrication Relationship Specialty Start Date End Date Thuan Tejada MD [address] [facility] [address] [place] [address] PCP - General Adolescent Medicine 01/27/25
--- OUTSIDE RECORDS SUMMARY | 2025-06-01 06:41 | XMS_ITS | Encounter Summary ---
Author Organization Healthcare Address [address] [place] [address] Care Team Providers Care Sliver Handler Name Role Phone Thuan Tejada MD Primary Care Provider + [phone] Susie Gomez LPN Unavailable Unavailabl e Ramila Juan Unavailable Unavailable Encounter Details Date Type Department Care Team ([facility] Contact Info) Description 09/26/2021 Orders Only External Location [address] [place] [address] Radiant, Imaging Upload Social History Tobacco Use Types Packs/Day Years Used Date Smoking Tobacco: Passive Smo ke Exposure - Never Smoker Comments Unknown Sex and Gender Information Value Date Recorded Sex Assigned at Not on file Legal Sex Female 8:23 PM EDT Gender Identity Not on file Sexual Orientation Not on file documented as of this encounter Plan of Treatment Upcoming Encounters Date Type Department Care Team ([facility] Contact Info) Description 06/15/2025 8:00 AM EDT Consult [place] [facility] [address], [address] [place] [address] Ciara Flower PA [address] [place] [address] documented as of this encounter Procedures Procedure Name Priority Date/Time Associated Diagnosis Comments CT ABDOMEN PELVIS WO IV CONTRAST 09/26/2021 1:40 PM EST documented in this encounter Results * CT Abdomen Pelvis wo IV Contrast (09/26/2021 1:40 PM EST) Anatomical Region Laterality Modality Abdomen, Pelvis Computed Tomogra phy 09/26/2021 1:40 PM EST us Imaging Upload Radiant IMG CT PROCEDURES Final R esult documented in this encounter Visit Diagnoses Not on filedocumented in this encounter Care Teams Sliver Handler Relationship Specialty Start Date End Date Thuan Teajda MD [address] [place] [address] PCP - General 01/05/21 Susie Gomez LPN [facility] TCM Nurse 11/25/24 12/25/24 Ramila Juan Community Health Worker 11/26/24 11/30/24 documented as of this encounter
[2025-06-01 08:29] LABS: Albumin Level 3.5 g/dl (3.5-5.0); Chloride 99 mmol/L (98-107); Potassium 4.0 mmoL/L (3.5-5.1); Sodium 137 mmol/L (136-145)
[2025-06-01 08:32] LABS: Alanine Aminotransferase 10 U/L (12-78); Albumin/Globulin Ratio 1.3 (1.1-1.8); Alkaline Phosphatase 130 U/L (38-126); Anion Gap 16.0 mEq/L (5-15); Aspartate Amino Transferase 21 U/L (14-36); Calcium 10.2 mg/dl (8.4-10.2); Carbon Dioxide 26 mmol/L (22.0-30.0); Cholesterol 156 mg/dl (140-200); Globulin 2.8 g/dL (1.3-3.2); Glucose 116 mg/dl (74-100); HDL Cholesterol 38 mg/dl (40-60); Total Protein,Serum 6.3 g/dl (6.3-8.2); Triglycerides 162 mg/dl (30-150)
[2025-06-01 09:33] LABS: Bilirubin,Total < 0.1 mg/dl (0.2-1.3)
[2025-06-01 12:18] LABS: Blood Urea Nitrogen 32 mg/dl (7-17); Creatinine,Serum 0.60 mg/dl (0.52-1.04); Estimated Glomerular Filt Rate 98 ml/min (>60); GFR (African American) 119 ML/MIN (>60)
== END 2025-06-01 23:59 | disposition home or self-care (01) ==
PROVIDERS: PCP Family Medicine; Visit Provider Family Medicine
DX: E78.2 Mixed hyperlipidemia (principal)
CPT/HCPCS: 36415; 80053; 80061

== ENCOUNTER 2025-06-15 12:56 | Outpatient (CLI) | payer MEDICARE, MEDICAID, SELFPAY ==
--- NOTE | 2025-06-15 13:05 | XR_ITS ---
FINAL REPORT CLINICAL HISTORY: left knee pain COMPARISON: 01/03/2025 FINDINGS: Three views of the left knee were obtained. There is no acute fracture or dislocation. There is moderate tricompartment degenerative change. General osteopenia is identified. IMPRESSION: Moderate tricompartment degenerative changes. Reviewed, Interpreted and Dictated by Melissa Rogers MD Transcribed by Shelly Cavanaugh Authenticated and [facility]
== END 2025-06-15 23:59 | disposition home or self-care (01) ==
LOC: RAD 12:57
PROVIDERS: PCP Family Medicine; Visit Provider Physician Assistant
DX: M17.12 Unilateral primary osteoarthritis, left knee (principal); M85.862 Other specified disorders of bone density and structure, left lower leg
CPT/HCPCS: 73562

== ENCOUNTER 2025-07-23 12:31 | Emergency (ER) | payer MEDICARE, MEDICAID, SELFPAY ==
[2025-07-23] VITALS (21 sets, daily range): BP systolic 131–222; BP diastolic 61–140; PULSE 74–117; RESP 14–23; TEMP 36.7; O2SAT 91–98; BMI 44.2
--- OUTSIDE RECORDS SUMMARY | 2025-07-23 12:37 | XMS_ITS | Encounter Summary ---
Author Organization Healthcare Address [address] [place] [address] Care Team Providers Care Detailer Pharmaceuticals Name Role Phone Thuan Tejada MD Primary Care Provider [phone] Susie Gomez LPN Unavailable Unavailabl e Ramila Juan Unavailable Unavailable Encounter Details Date Type Department Care Team ([facility] st Contact Info) Description 09/26/2021 Orders Only External Location [address] [place] [address] Radiant, Imaging Upload Social History Tobacco Use Types Packs/Day Years Used Date Smoking Tobacco: Passive Smo ke Exposure - Never Smoker Comments Unknown Sex and Gender Information Value Date Recorded Sex Assigned at Not on file Legal Sex Female 8:23 PM EDT Gender Identity Not on file Sexual Orientation Not on file documented as of this encounter Plan of Treatment Not on file documented as of this encounter Procedures Procedure [...] on filedocumented in this encounter Care Teams Detailer Pharmaceuticals Relationship Specialty Start Date End Date Thuan Tejada MD [address] [place] [address] PCP - General 01/05/21 Susie Gomez LPN [facility] None TCM Nurse 11/25/24 12/25/24 Ramila Juan Community Health Worker 11/26/24 11/30/24 documented as of this encounter
--- OUTSIDE RECORDS SUMMARY | 2025-07-23 12:37 | XMS_ITS ---
Author Organization [facility] Care Team Providers Care Validation Software Facilitator Name Role Phone Marilia Grier) Unavailable Unavail able Thuan Tejada Unavailable Unavailable Allergies and adverse reactions Code CodeSystem Substance Reaction Severity StartDate Concern Status Sulfamethoxazole /Trimethop rim Moderate 10/04/2021 active Care Team Name Role Address Phone Organization Dates Thuan Tejada PCP [address] [place] [address], [place], [address], [place] (Office): [facility] 10/04/2021 - 10/20/2021 Marilia Bhagat) [place], [address], [place] (Office): : [facility] 10/04/2021 - 10/20/2021 Goals Section Goals Description Status Target Date Goal is slow gradual weight loss, 1-4#/month, closer to IBWR. Free from chewing problems. Free from edema. Active 10/24/2021 Immunizations Immunization Status Vaccine Details Vaccine Code CodeSystem Date Notes TB 1 Step Mantoux (PPD) completed tuberculin skin test; unspecified formulation lotNumber: [id number] expiry: 11/16/2022 Mfg: sandra alleni Given 0.1 ml Left Forearm intradermally 98 [...] 6 infusion, chest x-ray results received from [facility] and negative. Mental Status Section Date Assessment Total Score Description 10/20/2021 CAM 0 No delirium ind icated 10/11/2021 BIMS 12 moderate cognit radhames impairment CAM 0 No delirium ind icated PHQ-9 05 mild depression Insurance Providers Coverage Status Coverage Type Relationship to Subscriber Member Identifier Subscriber Identifier Group Identifier Payer Identifier and Other information 2021 Code: 51 Code System OID:[id number] .813260.3.221. 5 Code System Name: Source of Payment Typology (PHDSC) Display: Managed Care (Private) Translation: Code: Code System: OID:[id number] .[id number]. 1336 Code System Name: Insurance Type Code ([id number]) Display Name: Health Maintenance Organization (HMO) Plan Code: SELF Code System Name: HL7 RoleCode Code System OID:[id number] .452031.5.111 Display Name: Self [id number] Root: [id number] Payer Identifier: Root: [id number] Extension: [id number] Payer Name: [employer] Address: [place] [address] City: [place] State: [place] Country: [facility] Telecom: [phone] Code: 2 Code System OID:[id number] .105758.3.221. 5 Code System Name: Source of Payment Typology ([facility]) Display: Medicaid Translation: Code: 48 Code System: OID:2.16.840.1 .199470.6.255. 1336 Code System Name: Insurance Type Code ([id number]) Display Name: Medicaid Plan of Treatment Section Interventions Intervention Code Code System Display Name Proposed D ate Problems Problem # Description Date of onset Resolved Date Code CodeSystem Concern Status 1 CONSTIPATION, UNSPECIFIED 10/14/[address] active 2 AGE-RELATED OSTEOPOROSIS WITHOUT CURRENT PATHOLOGICAL FRACTURE 10/04/[address] active 3 BACTEREMIA 10/04/[address] active 4 CALCULUS OF URETER 10/04/[address] active 5 COGNITIVE COMMUNICATION DEFICIT 10/04/[address] active 6 DIFFICULTY IN WALKING, NOT ELSEWHERE CLASSIFIED 10/04/[address] active 7 DYSPHAGIA, OROPHARYNGEAL PHASE 10/04/[address] active 8 GASTRO-ESOPHAGEAL REFLUX DISEASE WITHOUT ESOPHAGITIS 10/04/[address] active 9 HEMIPLEGIA AND HEMIPARESIS FOLLOWING UNSPECIFIED CEREBROVASCULAR DISEASE AFFECTING LEFT NON-DOMINANT SIDE 10/04/[address] active 10 HYPERLIPIDEMIA, UNSPECIFIED 10/04/[address] active 11 MALIGNANT NEOPLASM OF UNSPECIFIED SITE OF UNSPECIFIED FEMALE BREAST 10/04/[address] active 12 MERALGIA PARESTHETICA, LEFT LOWER LIMB 10/04/[address] active 13 MUSCLE WEAKNESS (GENERALIZED) 10/04/[address] active 14 OTHER ACQUIRED DEFORMITIES OF RIGHT FOOT 10/04/[address] active 15 PERSONAL HISTORY OF MALIGNANT NEOPLASM OF BRAIN 10/04/[address] active 16 PERSONAL HISTORY OF OTHER VENOUS THROMBOSIS AND EMBOLISM 10/04/[address] active 17 POLYNEUROPATHY, UNSPECIFIED 10/04/[address] active 18 SEPSIS, UNSPECIFIED ORGANISM 10/04/[address] active 19 TUBULO-INTERSTITIAL NEPHRITIS, 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 COLI] THE CAUSE OF DISEASES CLASSIFIED ELSEWHERE 10/04/[address] active Reason for Referral No Reasons for Referral Entered Social History Social History Observation Description Start Date End Date Code Code System Current Smoking Status Tobacco smoking consumption unknown 884340611 SNOMED CT Sex Assigned At Female 1950 [address]-1 [facility] Gender Identity Sexual Orientation Vital Signs Code Code System Vitals Name Values and Units Timing Information 9279-1 [facility] Respiratory Rate Value=20.0 Units=/m in 10/20/2021 8462-4 LOINC Blood Pressure-Diastolic Value=64 Un its=mmHg 10/20/2021 8480-6 LOINC Blood Pressure-Systolic Tfzdy=804 Un its=mmHg 10/20/2021 8310-5 [facility] Body Temperature Value=97.9 Units= F 10/20/2021 8867-4 [facility] Heart rate Rzbby=280.0 Units=/min 10/20/2021 46701-5 [facility] O2 % BldC Oximetry Value=98.0 Units= % 10/20/2021 66032-9 [facility] Pain Level Value=0.0 10/20/2021 24808-8 LOINC Weight Rrgdg=421.6 Units=Lbs 8302-2 LOINC Height Value=61.0 Units=Inches 10/04/2021
--- OUTSIDE RECORDS SUMMARY | 2025-07-23 12:37 | XMS_ITS | Clinical Summary ---
Author Organization [facility] Address [address] [place] [address] Care Team Providers Care Watchguard Name Role Phone Thuan Tejada MD Primary Care Provider + [phone] Allergies Active Allergy Reactions Criticality Noted Date [...] Info) Description 08/12/2025 10:45 AM EST Appointment [facility] AT [address] [place] [address] 08/12/2025 12:20 PM EST Office Visit [facility] [address] [address] Cyrus Bateman MD [address] [address] Health Maintenance Due Date Last Done Comments DXA SCAN 1950 COVID-19 Vaccine (#1) 1956 TDAP/TD VACCINES (1 - Tdap) 1970 COLON CANCER SCREENING 5 YEA R SIGMOIDOSCOPY [address] COLONOGRAPHY 1996 FECAL OCCULT BLOOD TEST 1996 FIT Testing (1 year) 1996 ZOSTER VACCINE (1 of 2) 2001 Pneumococcal Vaccine 50+ (2 of 2 - PCV20 or PCV21) 07/02/2019 07/02/2018 COLOGUARD 06/16/2021 06/16/2018 MAMMOGRAM 09/21/2022 09/21/2020, 08/26, 03/16/2020, Additional history exists ANNUAL WELLNESS VISIT 02/11/2025 HEPATITIS C SCREENING 02/11/2025 INFLUENZA VACCINE 03/25/2025 05/21/2019, , 06/14/2015 COLONOSCOPY 07/05/2029 07/05/2019, 06/25, 08/31/2018 COLORECTAL CANCER SCREENING 07/05/2029 Insurance [employer] MEDICARE ADVANTAGE [facility] PPO Advance Directives Documents on File Type Date Recorded Patient Tractor Operator Expl anation PATIENT ADVANCE DIRECTIVES - SCAN 02/08/2025 8:40 AM HEALTH CARE DIRECTIVES, [facility], 07/31/2015 POWER OF LANDSCAPE ARTIST - SCAN 02/08/2025 8:29 AM POWER OF LANDSCAPE ARTIST, [facility], 07/31/2015 POWER OF LANDSCAPE ARTIST - SCAN 01/05/2025 9:53 AM DURABLE POWER OF LANDSCAPE ARTIST [facility] Care Teams Watchguard Relationship Specialty Start Date End Date Thuan Tejada [facility] [facility] [address] [place] [address] PCP - General Adolescent Medicine 01/27/25
--- OUTSIDE RECORDS SUMMARY | 2025-07-23 12:37 | XMS_ITS | Clinical Summary ---
Author Organization [facility] Address [address] [place] [address] Care Team Providers Care Rock Breaker Name Role Phone Thuan Tejada MD Primary Care Provider [phone] Allergies Active Allergy Reactions Criticality Noted Date [...] mg by mouth daily. Active HYDROcodone-rachel taminophen (Sinclair) 7.5-325 MG tablet Take 1 tablet by [...] (10/30/2022): Added automatically from request for surgery [id number] Immunizations Immunization Administration Dates Next Due Influenza, [...] any time in the past 12 m [facility], were you homeless or living in a [place] facility (including now)? No 11/22/2024 CAGE ASSESSMENT Answer [...] drink first t verito in the morning (EYE-SENIOR QA ANALYST) to steady your nerves or to get [...] 11/21/2024 9:48 PM EDT Plan of Treatment Health Maintenance Due Date Last Done Comments [facility]-Bone Density Scan 1950 [facility]-Hepatitis C Screening 1950 [facility]-Medicare Annual Wellness (AWV) 1950 [facility]-/Child/Adol SDOH Screenings 1950 [facility]-DTaP,Tdap,and Td Vaccines (1 - Tdap) 1970 [facility]-Zoster Vaccines (1 of 2) 2001 [facility]-Pneumococcal Vaccine: 50+ Years (2 of 2 - PCV20 or PCV21) 07/02/2019 07/02/2018 [facility]-Breast Cancer Screening 09/21/2022 09/21/2020, 09/16/2019 [facility]-Depression Screening 10/31/2023 10/30/2022 [id number] Vaccine (1 - season) 2025 [facility]-Influenza Vaccine [...] this topic Medical Devices Implanted Type Area Senior Systems Engineer Device Identifier Shelf Expiration Date Model / Serial / Lot Mesh Soft [id number] - [id number] Implanted:Qty: 1 on 12/26/2022 by Boo Gill MD at [facility] N/A: Abdomen [id number] 06/21/2027 [id number] / / [id number] Procedures Procedure Name Priority Date/Time Associated Diagnosis Comments HEMOGLOBIN A1C Add-On 11/22/2024 3:59 AM EDT MAMMOGRAPHY BREAST DIAGNOSTIC TOMOSYNTHESIS BILATERAL Routine 09/21/2020 12:00 AM EST COLONOSCOPY 07/05/2019 from Last 3 Months or Most Recently Relevant to Health Maintenance Results * (ABNORMAL) Hemoglobin A1c (11/22/2024 3:59 AM EDT) Hemoglobin A1c 5.8(H) <5.7 % 11/22/2024 9:11 AM EDT [facility] Blood Venous blood specimen / Unknown Venipuncture / Unknown 11/22/2024 3:59 AM EDT 11/22/2024 4:08 AM EDT Narrative [facility] - 11/22/2024 9:11 AM EDT HA1C Interpretive Data: Diagnosis of Diabetes: Diabetic > or = 6.5% Pre-diabetic 5.7 to 6.4% Non-diabetic < or = 5.6% Glycemic Targets for Type I and Type II Diabetics: Non- Adults <7.0% Adults <6.0% Children and Adolescents <7.5% Source: [place] [employer]. Standards of medical care in diabetes,2017. Diabetes Care.2017:40 (suppl 1):S1-S135. HbA1c assay performed by an ion-exchange chromatography method that is certified traceable to the DCCT. us Abebe Vega MD LAB BLOOD ORDERABLES Final Resul t [facility] [address] [place] [address] * Mammography Breast Diagnostic Tomosynthesis Bilateral (09/21/2020 12:00 AM EST) Anatomical Region Laterality Modality Breast Bilateral Mammography Impressions 09/21/2020 12:28 PM EST BI-RADS Assessment Category 2: Benign finding. RECOMMENDATION: Bilateral diagnostic mammogram in 1 year. Page 1 of 2 Patient Name:Lenore Hood : 1950 Age: 70 Gender: femaleDate of Service: 09/21/2020 eferring Phy:Yair Castaneda M.D.Account: [id number] COMMUNICATION: The patient was seen today by the [facility] surgery/oncology team. They discussed the findings as [...] An Outside Location on 08/12/2018, and at [facility] on 09/16/2019 and 03/16/2020. FINDINGS: MAMMOGRAM The [...] The patient was seen today by the [facility] surgery/oncology team. They discussed the findings as [...] of Service: 09/21/2020 eferring Phy:Yair Castaneda M.D.Account: [id number] Yair Castaneda M.D. [facility] [address] [place] [address] FINAL REPORT PROCEDURE: Tomosynthesis Diagnostic Bilateral - [...] An Outside Location on 08/12/2018, and at [facility] on 09/16/2019 and 03/16/2020. FINDINGS: MAMMOGRAM The [...] An Outside Location on 08/12/2018, and at [facility] on 09/16/2019 and 03/16/2020. FINDINGS: MAMMOGRAM The [...] The patient was seen today by the [facility] surgery/oncology team. They discussed the findings as [...] on Sep 21 2020 12:27P Transcribed by: [facility] on Sep 21 2020 12:27P Dictated by: ZHANE CARRASCO M.D. on Sep 21 2020 12:27P Patient Name:Lenore Hood : 1950 Age: 70 Gender: femaleDate of Service:09/21/2020 eferring Phy:Yair Castaneda M.D.Account: [id number] Yair Castaneda M.D. [facility] [place] [address] FINAL REPORT PROCEDURE: Tomosynthesis Diagnostic Bilateral - [...] An Outside Location on 08/12/2018, and at [facility] on 09/16/2019 and 03/16/2020. FINDINGS: MAMMOGRAM The [...] femaleDate of Service:09/21/2020 eferring Phy:Yair Castaneda M.D.Account: [id number] COMMUNICATION: The patient was seen today by the [facility] surgery/oncology team. Theydiscussed the findings as well as our recommendations with the patient and a printed lay language version of theimaging report was given to the patient at the time of visit. The mammogram was read with the assistance of UMAIR andtomosynthesjennifer. Dictated By: Zhane Carrasco M.D. Verified By: Zhane Carrasco M.D. on 09/21/2020 at 12:22:25 PM Page 2 of 2 Yair Castaneda MD IMG BI PROCEDURES Final Res ult * COLONOSCOPY (07/05/2019) Anatomical Region Laterality Modality Endoscopy Narrative 07/05/2019 Ordered by an unspecified provider. Historical Provider GI PROCEDURE ORDERABLES Emiliana belle Result from Last 3 Months or Most Recently Relevant to [place] [address] Advance Directives * Full Code (Latest Code Status on File) Date Activated Date Inactivated Comments 11/22/2024 3:32 AM 11/23/2024 4:48 PM * Full Code Date Activated Date Inactivated Comments 12/26/2022 3:24 PM 01/01/2023 7:20 PM Question Answer Comments Patient has decision-making capacity? Yes Care Teams Rock Breaker Relationship Specialty Start Date End Date Thuan Tejada MD [address] [place] [address] PCP - General 01/05/21
--- NOTE | 2025-07-23 12:46 | PC.NURSE ---
is on the phone with OBGYN right now.
--- NOTE | 2025-07-23 12:46 | PC.NURSE ---
A nurse from [facility] just called the hospital to give report on patient. PARAS Ocasio is on the phone with them now.
[2025-07-23] MEDS: LIDOCAINE 2% UROJET 10ML 11 ML TP (13:03)
--- NOTE | 2025-07-23 13:06 | PC.NURSE ---
family at bedside
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
[2025-07-23] MEDS: COCAINE 4% TOPICAL SOLN 4ML BOTTLE 1 ML TP (13:14)
[2025-07-23] MEDS: FLUCONAZOLE 100MG TABLET 200 MG PO (13:16)
[2025-07-23 14:14] LABS: Microscopic, Urine URINE MICROSCOPIC (MICROSCOPIC)
[2025-07-23 14:31] LABS: Bilirubin,Urine Negative (Negative); Color,Urine YELLOW (Yellow); Glucose,Urine (UA) Negative (Negative); Ketones,Urine Negative (Negative); Leukocyte Esterase,Urine Negative (Negative); PH,Urine 7.5 (5.0-8.5); Protein,Urine Negative (Negative); Specific Gravity, Urine 1.020 (1.005-1.030); Urobilinogen,Urine 0.2 EU/dl (0.2)
[2025-07-23 14:36] LABS: Squamous Epithelial Cell,Urine Occasional #/hpf (0-5); WBC,Urine Occasional #/hpf (0-3)
[2025-07-23] MEDS: KETAMINE 50MG/1ML SYRINGE 150 MG IV (14:51)
[2025-07-23] MEDS: LIDOCAINE 1% W/EPI 1:100,000 20ML VIAL 20 ML SQ (14:52)
--- NOTE | 2025-07-23 15:17 | PC.NURSE ---
called report to [facility] and contacted ems for transport back to facility
== END 2025-07-23 16:06 | disposition home or self-care (01) ==
PROVIDERS: Emergency Provider Student in an Organized Health Care Education/Training Program; PCP Family Medicine
DX: S31.41XA Laceration without foreign body of vagina and vulva, initial encounter (principal); B37.31 Acute candidiasis of vulva and vagina; X58.XXXA Exposure to other specified factors, initial encounter
CPT/HCPCS: 12001; 51702; 81001; 99152; 99153; 99285; J0169; J2004